=== PATIENT | female | born 1985 | race Caucasian/White ===

== ENCOUNTER 2021-08-10 12:40 | Emergency (ER) | payer OTHER, SELFPAY ==
--- NOTE | ~2021-08-10 | CT_ITS ---
EXAMINATION: CT ABDOMEN AND PELVIS WITH CONTRAST CLINICAL INFORMATION: Chronic nausea, poor appetite, vomiting, weight loss COMPARISON: 07/29/2021 TECHNIQUE: Multidetector volumetric images were obtained from the superior aspect of the liver through the pubic symphysis following administration 85 mL of Omnipaque 350 intravenous contrast. Sagittal and coronal reformatted images were obtained on the technologist's workstation. Oral contrast: No This CT examination was performed using dose optimization techniques as appropriate, variously including the following: *Automated exposure control *Adjustment of mA and/or kV according to patient size (this includes techniques or standardized protocols for targeted exams where dose is matched to indication/reason for exam; i.e. extremities or head) *Use of iterative reconstruction technique DLP: 445 mGy-cm FINDINGS: Suboptimal assessment in some regions due to motion artifact. LUNG BASES: The visualized lung bases are unremarkable. LIVER, GALLBLADDER, AND BILIARY TREE: The liver is normal in size, shape, and attenuation. No focal hepatic lesion or biliary ductal dilatation is present. The gallbladder appears contracted and is not well evaluated. PANCREAS: Unremarkable. SPLEEN: Unremarkable. ADRENAL GLANDS: Unremarkable. KIDNEYS AND URETERS: Bilateral nephrograms are symmetric. No hydronephrosis or obstructing calculus identified. BLADDER: Unremarkable. GASTROINTESTINAL TRACT: Curvilinear soft tissue density in the left perianal region suggests sequelae of perianal fistula; this appears slightly decreased in prominence since 07/29/2021. No evidence of bowel obstruction. No significant bowel wall thickening is seen. The appendix is unremarkable. Small amount of fluid noted in the right lower quadrant. No free air identified. ABDOMINAL WALL: No significant hernia is appreciated. LYMPH NODES: Normal. VASCULAR: Unremarkable. PELVIC VISCERA: Unremarkable. Trace pelvic free fluid is noted, decreased from prior. OSSEOUS STRUCTURES: Unremarkable. CT/CT abdomen pelvis w con IMPRESSION: Interval decrease in pelvic free fluid compared to 07/29/2021. Small amount of free fluid is also noted in the right lower quadrant, of uncertain etiology. Curvilinear soft tissue density in the left perianal region suggests sequelae of fistula; slightly less prominent than on 07/29/2021. Fleischner guidelines were followed.
[2021-08-10 15:47] VITALS: BP 93/54; PULSE 75; RESP 18; TEMP 36.2; O2SAT 99; BMI 24.4
[2021-08-10 16:17] LABS: Appearance Urine CLEAR; Color Urine YELLOW; Glucose Urine UA NEG (NEG); Leukocyte Esterase Urine NEG (NEG); Nitrite Urine NEG (NEG); Specific Gravity - Urine <= 1.005 (1.005-1.025); Urine Blood NEG (NEG); Urine Ketones NEG (NEG); Urine Protein NEG (NEG-TRACE)
[2021-08-10 16:21] LABS: UPreg QC Valid YES; Urine Pregnancy NEGATIVE (NEGATIVE)
[2021-08-10 21:51] VITALS: BP 93/54; PULSE 75; RESP 18; TEMP 36.2; O2SAT 99
[2021-08-10 22:09] LABS: MANUAL DIFF FLAG NO
[2021-08-10 22:10] LABS: Basophils Percent Auto 0.1 % (0-2); Eosinophils Percent Auto 0.4 % (0-4); Hematocrit 39.3 % (37.0-47.0); Hemoglobin 13.2 g/dl (12.0-16.0); Imm Gran Abs Auto 0.01 X10*3/uL (0.00-0.03); Imm Gran Pct Auto 0.1 % (0.0-0.4); Lymphocytes Absolute Auto 3.2 X10*3/uL (1.2-4.9); Lymphocytes Percent Auto 40.8 % (20-40); Mean Corpuscular HGB Conc 33.6 g/dl (31.0-35.0); Mean Corpuscular Hemoglobin 31.7 pg (27.0-33.0); Mean Corpuscular Volume 94.5 fL (80.0-98.0); Mean Platelet Volume 10.8 fL (9.4-12.3); Monocytes Absolute Auto 0.5 X10*3/uL (0.1-1.2); Monocytes Percent Auto 6.5 % (2-11); Neutrophils Percent Auto 52.1 % (45-73); Platelet Count 212 X10*3/uL (160-400); Red Blood Count 4.16 X10*6/uL (4.20-5.50); Red Cell Distribution Width 12.3 % (11.0-16.0); White Blood Count 7.7 X10*3/uL (4.8-10.8)
[2021-08-10 22:26] LABS: COVID-19 Test Negative (Negative); IDNOW Serial# 9DD0AD1C
[2021-08-10 22:29] LABS: Alanine Aminotransferase 12 U/L (0-31); Albumin Level 4.3 g/dL (3.5-5.0); Alkaline Phosphatase 47 U/L (39-117); Anion Gap 9 (12-20); Aspartate Amino Transferase 14 U/L (5-31); Bilirubin Direct < 0.2 mg/dL (0.0-0.5); Bilirubin Total 0.4 mg/dL (0.0-1.0); Blood Urea Nitrogen 10 mg/dL (9-16); Calcium 9.4 mg/dL (8.4-10.2); Carbon Dioxide 28 mmol/L (22-29); Chloride 107 mmol/L (96-108); Creatinine Clr Calc Pharmacy 73.6; Estimated Glomerular Filt Rate > 60; Glucose Random 106 mg/dL (60-115); Lipase 71 U/L (8-78); Sodium 140 mmol/L (135-145); Total Protein 7.3 g/dL (6.5-8.0)
--- NOTE | 2021-08-10 22:57 | ED.GENADULT ---
HPI - General Adult General Chief complaint: Nausea/Vomiting/Diarrhea Stated complaint: vomiting 5 days Time Seen by Provider: 08/10/21 22:51 Source: patient Limitations: no limitations and language barrier ([facility] [employer] web services used) History of Present Illness HPI narrative: This is a 36-year-old female who complains of poor appetite and vomiting for weeks. The patient did see a physician in [place] who had done a test which sounds like an H pylori evaluation that was positive. The patient was treated for ?bacteria in her abdomen?, and was put on a combination medicine containing bismuth, tetracycline, and metronidazole. The patient was put on a 10 day course of this. She states that she has not improved but continues to have poor appetite, belching, nausea, vomiting. She has been drinking water and Ensure but has been losing weight. She denies any fever. She has pain primarily associated with vomiting. She denies any cough or shortness of breath. She denies any urinary symptoms. She denies any constipation. She notes she did have a procedure to her colon About a year ago, had been constipated before that but is not constipated since then. She denies marijuana use. She denies being . Related Data Previous Rx's Medication Instructions Recorded prochlorperazine 25 mg rectal 25 mg MT BID PRN #12 ea 08/11/21 suppository (Compazine) Allergies Allergy/AdvReac Type Severity Reaction Status Date / Time No Known Allergies Allergy Verified 08/10/21 15:44 Review of Systems Review of Systems: Yes all other systems are reviewed and are negative Constitutional: Constitutional: Reports as per HPI, Denies fever(s), Reports poor appetite and Reports weakness Eyes: Eyes: Reports as per HPI and Reports no additional eye complaints ENT: Reports system reviewed and no additional complaints, except as documented, Reports as per HPI, Denies nasal congestion, Denies nasal discharge and Denies sore throat Cardiovascular: Cardiovascular: Reports as per HPI, Denies chest pain and Denies dyspnea Respiratory: Respiratory: Reports as per HPI, Denies cough and Denies dyspnea Gastrointestinal: Gastrointestinal: Reports as per HPI, Reports abdominal pain, Reports belching, Denies bloating, Denies change in bowel habits, Denies diarrhea, Reports nausea and Reports vomiting Genitourinary: Genitourinary: Reports as per HPI, Denies hematuria, Denies urinary frequency and Denies dysuria Musculoskeletal: Musculoskeletal: Reports no additional musculoskeletal complaints and Denies numbness Integumentary/Breasts: Skin/Breast: Reports as per HPI and Denies rash Neurologic: Reports as per HPI, Denies focal weakness, Denies numbness, Denies Sensory deficit (Neuro) and Reports weakness Psychiatric: Psychiatric: Reports no additional psychiatric complaints and Reports as per HPI Endocrine: Endocrine: Reports no additional endocrine complaints and Reports as per HPI Hematologic/Lymphatic: Hematologic/Lymphatic: Reports no additional hematologic/lymphatic complaints, Reports as per HPI and Reports other (No peripheral edema) [facility] Past Medical History Medical History (Updated 08/11/21 @ 02:02 by Santiago Del Valle MD) No known health problems Social History Social History Alcohol intake: never Patient Tobacco Use Status: Never used Tobacco Use of substances other than those prescribed or required for medical reasons: No Advance Directives: No Advance Directives Information Provided: No Patient : No Physical Exam Vital Signs: Vital Signs: Last Vital Signs Temp 97.2 F 08/10/21 21:51 Pulse 78 08/11/21 00:12 Resp 16 08/11/21 00:12 BP 101/56 L 08/11/21 00:12 Pulse Ox 98 08/11/21 00:12 BMI result Body Mass Index 24.4 Const: General: cooperative, no acute distress and alert Orientation/consciousness: patient oriented x3 HENMT: Head: Yes normal to inspection Eyes: General: appearance normal, both eyes and all related structures Eyelids: Yes eyelids normal Conjunctivae: conjunctivae normal Pupils: Equal, round and reactive pupils present Neck: Neck: Yes normal visual inspection and Yes supple Chest: Chest palpation & inspection: normal inspection of the chest Resp: Effort & Inspection: normal respiratory effort Auscultation: clear to auscultation bilaterally Cardio: Rate: regular rate Rhythm: regular rhythm Heart sounds: S1 normal heart sound present, S2 normal heart sound present, no gallops, no murmurs and no rubs GI: Inspection: Yes normal to inspection and Yes other (S significant distension.) Palpation (GI): Soft to palpation, nontender and Other GI palpation findings present (Non-distended) Auscultation: abnormal bowel sounds (Mildly hyperactive) Skin: General skin exam: no rashes or lesions noted Neuro: General: patient oriented x3, no focal motor deficits and CN's II-XI intact bilaterally Cranial nerves: Yes Equal, round and reactive pupils present Cognition (Neuro): normal cognition Motor exam (neuro): 5/5 motor strength present throughout Sensory Exam: No Sensory deficit (Neuro) Extrem: General: Yes normal to inspection and Yes no pedal edema Psych: Appearance: grossly normal Affect: normal affect Medical Decision Making MDM Narrative Medical decision making narrative: Patient with a complaint of GI symptoms including poor appetite and vomiting. Patient did not appear ill on exam. Vital signs normal. Labs unremarkable. Patient was hydrated with normal saline and given Zofran IV. Patient is safe for outpatient follow-up. Lab Data Result diagrams: 08/10/21 22:04 08/10/21 22:04 Labs: Lab Results 08/10/21 08/10/21 08/10/21 Range/Units 16:00 16:00 22:04 WBC 7.7 (4.8-10.8) X10*3/uL RBC 4.16 L (4.20-5.50) X10*6/uL Hgb 13.2 (12.0-16.0) g/dl Hct 39.3 (37.0-47.0) % MCV 94.5 (80.0-98.0) fL MCH 31.7 (27.0-33.0) pg MCHC 33.6 (31.0-35.0) g/dl RDW 12.3 (11.0-16.0) % Plt Count 212 (160-400) X10*3/uL MPV 10.8 (9.4-12.3) fL Immature Gran % (Auto) 0.1 (0.0-0.4) % Neut % (Auto) 52.1 (45-73) % Lymph % (Auto) 40.8 H (20-40) % Sheridan % (Auto) 6.5 (2-11) % Eos % (Auto) 0.4 (0-4) % Baso % (Auto) 0.1 (0-2) % Lymph # (Auto) 3.2 (1.2-4.9) X10*3/uL Sheridan # (Auto) 0.5 (0.1-1.2) X10*3/uL Eos # (Auto) 0.0 (0.0-0.4) X10*3/uL Baso # (Auto) 0.0 (0.0-0.2) X10*3/uL Abs Immat Gran (auto) 0.01 (0.00-0.03) X10*3/uL Absolute Neuts (auto) 4.0 (2.0-8.3) x10*3/uL Absolute Nucleated RBC 0.000 (0.0-0.012) X10*3/uL Nucleated RBC % (auto) 0.0 (0.0-0.2) /100WBC Sodium (135-145) mmol/L Potassium (3.3-5.1) mmol/L Chloride (96-108) mmol/L Carbon Dioxide (22-29) mmol/L Anion Gap (12-20) BUN (9-16) mg/dL Creatinine (0.5-1.4) mg/dL Estim Creat Clear Calc Estimated GFR Random Glucose (60-115) mg/dL Calcium (8.4-10.2) mg/dL Total Bilirubin (0.0-1.0) mg/dL Direct Bilirubin (0.0-0.5) mg/dL AST (5-31) U/L ALT (0-31) U/L Alkaline Phosphatase (39-117) U/L Total Protein (6.5-8.0) g/dL Albumin (3.5-5.0) g/dL Lipase (8-78) U/L Urine Color YELLOW Urine Appearance CLEAR Urine pH 7.0 (5.0-8.0) Ur Specific [place] <= 1.005 (1.005-1.025) Urine Protein NEG (NEG-TRACE) MG/DL Urine Glucose (UA) NEG (NEG) MG/DL Urine Ketones NEG (NEG) MG/DL Urine Blood NEG (NEG) Urine Nitrite NEG (NEG) Ur Leukocyte Esterase NEG (NEG) Urine Test NEGATIVE (NEGATIVE) COVID-19 (ADDISON) (Negative) COVID-19 Clin Com 08/10/21 08/10/21 Range/Units 22:04 22:04 WBC (4.8-10.8) X10*3/uL RBC (4.20-5.50) X10*6/uL Hgb (12.0-16.0) g/dl Hct (37.0-47.0) % MCV (80.0-98.0) fL MCH (27.0-33.0) pg MCHC (31.0-35.0) g/dl RDW (11.0-16.0) % Plt Count (160-400) X10*3/uL MPV (9.4-12.3) fL Immature Gran % (Auto) (0.0-0.4) % Neut % (Auto) (45-73) % Lymph % (Auto) (20-40) % Sheridan % (Auto) (2-11) % Eos % (Auto) (0-4) % Baso % (Auto) (0-2) % Lymph # (Auto) (1.2-4.9) X10*3/uL [place] # (Auto) (0.1-1.2) X10*3/uL Eos # (Auto) (0.0-0.4) X10*3/uL Baso # (Auto) (0.0-0.2) X10*3/uL Abs Immat Gran (auto) (0.00-0.03) X10*3/uL Absolute Neuts (auto) (2.0-8.3) x10*3/uL Absolute Nucleated RBC (0.0-0.012) X10*3/uL Nucleated RBC % (auto) (0.0-0.2) /100WBC Sodium 140 (135-145) mmol/L Potassium 4.0 (3.3-5.1) mmol/L Chloride 107 (96-108) mmol/L Carbon Dioxide 28 (22-29) mmol/L Anion Gap 9 L (12-20) BUN 10 (9-16) mg/dL Creatinine 0.89 (0.5-1.4) mg/dL Estim Creat Clear Calc 73.6 Estimated GFR > 60 Random Glucose 106 (60-115) mg/dL Calcium 9.4 (8.4-10.2) mg/dL Total Bilirubin 0.4 (0.0-1.0) mg/dL Direct Bilirubin < 0.2 (0.0-0.5) mg/dL AST 14 (5-31) U/L ALT 12 (0-31) U/L Alkaline Phosphatase 47 (39-117) U/L Total Protein 7.3 (6.5-8.0) g/dL Albumin 4.3 (3.5-5.0) g/dL Lipase 71 (8-78) U/L Urine Color Urine Appearance Urine pH (5.0-8.0) Ur Specific [place] (1.005-1.025) Urine Protein (NEG-TRACE) MG/DL Urine Glucose (UA) (NEG) MG/DL Urine Ketones (NEG) MG/DL Urine Blood (NEG) Urine Nitrite (NEG) Ur Leukocyte Esterase (NEG) Urine Test (NEGATIVE) COVID-19 (ADDISON) Negative (Negative) COVID-19 Clin Com See Note Imaging Data CT scan - abdomen: Radiologist's impression: MPRESSION: Interval decrease in pelvic free fluid compared to 07/29/2021. Small amount of free fluid is also noted in the right lower quadrant, of uncertain etiology. Curvilinear soft tissue density in the left perianal region suggests sequelae of fistula; slightly less prominent than on 07/29/2021. Discharge Plan Discharge Clinical Impression: Vomiting Patient Disposition: Home, Self-Care Instructions: Acute Nausea and Vomiting (ED) Additional Instructions: Follow-up the primary care physician. Continue drinking plenty of fluids. Continue current medications. Use Compazine suppositories as needed for nausea if your othermedicines are not working. Prescriptions: New prochlorperazine [Compazine] 25 mg suppository 25 mg MT BID PRN (Reason: nausea and vomiting) Qty: 12 RF: 0 Interventions: ED Discharge Assessment Last Done: 08/11/21 02:47 Discharge Date/Time: 08/11/21 03:03
[2021-08-10] MEDS: LORazepam 2 MG/ML VIAL 0.5 MG IVPUSH (23:05)
[2021-08-10] MEDS: 0.9 % Sodium Chloride 1,000 ML 999 ML IV (23:05)
[2021-08-10] MEDS: Metoclopramide HCl 10 MG/2 ML VIAL IVPUSH (23:05)
[2021-08-11 00:12] VITALS: BP 101/56; PULSE 78; RESP 16; O2SAT 98
[2021-08-11] MEDS: iohexoL 350 MG/ML 100 ML INFUS..BTL 85 ML IV (00:37)
== END 2021-08-11 03:03 | disposition home or self-care (01) ==
PROVIDERS: Emergency Provider Emergency Medicine
DX: R11.2 Nausea with vomiting, unspecified (principal); Z20.822 Contact with and (suspected) exposure to COVID-19
CPT/HCPCS: 36415; 74177; 80048; 80076; 81003; 81025; 83690; 85025; 87635; 96361; 96374; 96375; 99284; J2060; J2765; Q9967

== ENCOUNTER → 2021-09-19 15:03 | Outpatient (BNVA) | payer OTHER, SELFPAY | PROVIDERS: Visit Provider Nurse Practitioner Family | DX: R53.83 Other fatigue (principal); R20.2 Paresthesia of skin; R53.1 Weakness; R11.0 Nausea | CPT/HCPCS: 99212 ==

== ENCOUNTER 2021-11-24 08:17 | Outpatient (REF) | payer OTHER, SELFPAY ==
--- NOTE | 2021-11-24 08:21 | EMG_ITS ---
Bilateral tibial and peroneal motor studies were performed. Bilateral sural, superficial peroneal, median, and lateral plantar studies were performed. Tibial H-reflexes were obtained and paraspinal muscles were tested with a needle. IMPRESSION: 1. 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 2. No evidence of generalized neuropathy or radiculopathy. MD SALLY Collins/KIKIL / [id number]
== END 2021-11-24 08:18 | disposition home or self-care (01) ==
LOC: HO.NEURO 08:17
PROVIDERS: Visit Provider Nurse Practitioner Family
DX: R20.2 Paresthesia of skin (principal); R53.1 Weakness
CPT/HCPCS: 95886; 95913

== ENCOUNTER → 2021-12-08 15:31 | Outpatient (BNVA) | payer OTHER, SELFPAY | PROVIDERS: PCP Nurse Practitioner Family; Visit Provider Nurse Practitioner Family | DX: G47.19 Other hypersomnia (principal); G57.53 Tarsal tunnel syndrome, bilateral lower limbs; R06.83 Snoring; R53.1 Weakness; R20.2 Paresthesia of skin; R42 Dizziness and giddiness | CPT/HCPCS: 99212 ==

== ENCOUNTER → 2022-01-16 16:04 | Outpatient (REF) | payer OTHER, SELFPAY | LOC: HO.SL 16:04 | PROVIDERS: Visit Provider Nurse Practitioner Family | DX: G47.19 Other hypersomnia (principal); G47.9 Sleep disorder, unspecified; R06.83 Snoring; G47.10 Hypersomnia, unspecified | CPT/HCPCS: 95806 ==

== ENCOUNTER → 2022-03-06 09:12 | Outpatient (BNVA) | payer OTHER, SELFPAY | PROVIDERS: PCP Nurse Practitioner Family; Visit Provider Nurse Practitioner Family | DX: R56.9 Unspecified convulsions (principal); D18.02 Hemangioma of intracranial structures; R42 Dizziness and giddiness; G57.53 Tarsal tunnel syndrome, bilateral lower limbs; R20.2 Paresthesia of skin | CPT/HCPCS: 99212 ==

== ENCOUNTER → 2022-03-14 09:17 | Outpatient (BNVA) | payer OTHER, SELFPAY | PROVIDERS: PCP Nurse Practitioner Family; Visit Provider Internal Medicine Rheumatology | DX: M25.511 Pain in right shoulder (principal); R20.2 Paresthesia of skin; G57.53 Tarsal tunnel syndrome, bilateral lower limbs; R56.9 Unspecified convulsions; D18.02 Hemangioma of intracranial structures | CPT/HCPCS: 99202 ==

== ENCOUNTER → 2022-05-05 10:35 | Outpatient (BNVA) | payer OTHER, SELFPAY | PROVIDERS: PCP Nurse Practitioner Family; Visit Provider Nurse Practitioner Family | DX: R42 Dizziness and giddiness (principal); G47.19 Other hypersomnia; R06.83 Snoring; R56.9 Unspecified convulsions; R20.2 Paresthesia of skin; G57.53 Tarsal tunnel syndrome, bilateral lower limbs; D18.02 Hemangioma of intracranial structures | CPT/HCPCS: 99212 ==

== ENCOUNTER 2022-06-21 14:48 | Outpatient (REF) | payer OTHER, SELFPAY ==
--- NOTE | 2022-06-21 10:30 | EMG_ITS ---
Please see scanned EMG / Nerve Conduction Report. MTDD
== END 2022-06-21 14:49 | disposition home or self-care (01) ==
LOC: HO.NEURO 14:48
PROVIDERS: Visit Provider Internal Medicine Rheumatology
DX: R20.2 Paresthesia of skin (principal)
CPT/HCPCS: 95885; 95913

== ENCOUNTER 2022-07-20 22:59 | Emergency (ER) | payer OTHER, SELFPAY ==
--- NOTE | ~2022-07-20 | CT_ITS ---
EXAMINATION: CT HEAD WITH/WITHOUT CONTRAST CLINICAL INFORMATION: Double vision and headache. Evaluate for optic nerve compression. COMPARISON: Brain MRI 05/14/2021. TECHNIQUE: Contiguous axial imaging was performed from the skull base to vertex before and after the administration of 100 mL of Omnipaque [address] examination was performed using dose optimization techniques as appropriate, variously including the following: *Automated exposure control *Adjustment of mA and/or kV according to patient size (this includes techniques or standardized protocols for targeted exams where dose is matched to indication/reason for exam; i.e. extremities or head) *Use of iterative reconstruction technique DLP: 1301 mGy-cm FINDINGS: There is a small focus of hyperattenuation within the cerebellar vermis to the left of midline which coincides with the presence of a known cavernous malformation better depicted on MR imaging of the brain from 05/14/2021. Otherwise no abnormal intracranial mass or enhancement. No acute hemorrhage or abnormal extra-axial collection. No intracranial mass effect or midline shift. Lateral and third ventricles are normal. No hydrocephalus. Cooley-white matter differentiation is grossly preserved and there is no evidence of acute territorial infarct. The calvarium and skull base are intact. Mastoid air cells and middle ear cavities are well aerated. CT/CT head/brain wo/w IV con IMPRESSION: No acute finding to provide an explanation for this patient's clinical symptoms of double vision and headaches. Again there is a cavernous malformation located within the cerebellar vermis. Otherwise no abnormal intracranial mass or enhancement. No evidence of acute territorial infarct or hemorrhage.
--- NOTE | ~2022-07-20 | XR_ITS ---
EXAMINATION: XR CHEST CLINICAL INFORMATION: Weakness, dizziness, shortness of breath. COMPARISON: None TECHNIQUE: 2 views of the chest were obtained. FINDINGS: No significant abnormality is noted involving the heart, lungs, mediastinum, bony thorax or soft tissues. XR/XR chest 2V IMPRESSION: No acute cardiopulmonary process.
--- NOTE | ~2022-07-20 | US_ITS ---
EXAMINATION: US VENOUS ULTRASOUND WITH DOPPLER LOWER EXTREMITY, BILATERAL CLINICAL INFORMATION: Bilateral lower extremity pain and swelling. COMPARISON: None TECHNIQUE: Ultrasound of the deep veins is performed from the hip to the calf with compression sonography and color and pulse Doppler assessment. Spectral analysis with color-flow imaging is performed. FINDINGS: RIGHT: There is normal venous compression and respiratory variation and augmented flow. The visualized common femoral vein, superficial femoral vein, profunda femoral vein, popliteal vein, and the trifurcation region shows no evidence of deep venous thrombosis. No right popliteal cyst. The subcutaneous soft tissues are unremarkable. LEFT: There is normal venous compression and respiratory variation and augmented flow. The visualized common femoral vein, superficial femoral vein, profunda femoral vein, popliteal vein, and the trifurcation region shows no evidence of deep venous thrombosis. No left popliteal cyst. The subcutaneous soft tissues are unremarkable. US/US venous duplex LE BI IMPRESSION: No evidence for deep venous thrombosis in the visualized veins of the bilateral lower extremities.
[2022-07-20 23:03] VITALS: BP 118/70; PULSE 96; RESP 18; TEMP 36.6; O2SAT 98; BMI 28.3
[2022-07-21 03:55] VITALS: BP 103/72; PULSE 73; RESP 18; TEMP 37; O2SAT 98
--- NOTE | 2022-07-21 04:01 | PC.NURSE ---
Pt's V/S are stable, pt reports vomiting, dizziness and vision loss today. Pt reports experiencing bilaterally lower extremities numbness x 2 days. Pt also has headache (occipital) 10/10, and nothing relief the pain. Pt denies hx of vertigo or migraines. Pt has hx of seizures, her last seizure was 2 days ago. Pt has bilaterally strength on upper/lower extremities, TAMI pupils, a/o x5, no apparent of distress. will continue to monitor.
--- NOTE | 2022-07-21 07:11 | ED_ITS ---
HPI - General Adult General Chief complaint: General Medical Stated complaint: Headache, Body aches Time Seen by Provider: 07/21/22 07:11 Source: patient Mode of arrival: ambulatory Limitations: language barrier (Mohawk speaking only, staff interpreter used) History of Present Illness HPI narrative: 37-year-old female who presents emergency department for evaluation of a headache, dizziness, fatigue, double vision, numbness in both legs, swelling in both legs time 3 days. The patient has a known cavernous hemangioma of the cerebellum and a seizure disorder. She states that over the last 3 days she has had constant dizziness which she describes as a room spinning sensation. This is not worse with position change but she states that does get worse when she walks around. She states she has had similar dizziness in the past but never to this extent. She states that over the past 2-3 days she has also had a constant headache. She points to her right parietal area into her frontal area when asked to localize the pain. She describes the pain as a pressure twisting like sensation which is 10/10. Patient had associated nausea with no vomiting. She also states that over the past days she has had constant, side by side, double vision. She has also noticed numbness of her lower extremities with swelling in her popliteal fossa areas bilaterally. She denied fever, chills, sore throat, chest pain, shortness of breath or dyspnea on exertion. She states she gets occasional chest pain but cannot describe the character of the pain. She states the pain is located throughout her entire chest. The patient has had similar symptoms the past and has been seen by Neurology. Neurology note from 05/05/2022 was reviewed. Patient was seen for facial swelling, dizziness, fatigue,, bilateral leg and arm pain. The patient was thought to have an allergic reaction to Keppra was tapered off fat started on Trileptal, she was also treated with prednisone. She was diagnosed with tarsal tunnel syndrome bilateral of the lower extremities causing her paresthesias and pain, dizziness secondary to 9 mm cerebellar hemangioma. The patient has also had double vision in the past. Related Data Home Medications Medication Instructions Recorded Confirmed albuterol sulfate 90 mcg/actuation 1 inh inhalation QID 08/19/21 03/14/22 aerosol inhaler cholecalciferol (vitamin D3) 25 25 mcg PO DAILY 08/19/21 03/14/22 mcg (1,000 unit) capsule ferrous sulfate 325 mg (65 mg 325 mg PO DAILY 08/19/21 03/06/22 iron) tablet ibuprofen 800 mg tablet 800 mg PO Q8H 08/19/21 03/14/22 ondansetron HCl 4 mg tablet 4 mg PO Q8H 08/19/21 03/14/22 fluticasone propionate 50 1 spray intranasal DAILY 02/10/22 03/14/22 mcg/actuation nasal spray,suspension meclizine 25 mg tablet 25 mg PO TID 02/10/22 03/14/22 mirtazapine 15 mg tablet 15 mg PO BEDTIME 02/10/22 03/14/22 multivitamin 1 tab PO DAILY 02/10/22 03/14/22 albsrponqubn-coblvyer-alfg 1 tab PO DAILY 02/10/22 03/14/22 fumarate 7.5 mg-folic acid 400 mcg tablet pantoprazole 20 mg tablet,delayed 20 mg PO BID 02/10/22 03/06/22 release zolpidem 5 mg tablet 5 mg PO BEDTIME PRN insomnia 02/10/22 03/14/22 Previous Rx's Medication Instructions Recorded gabapentin 100 mg capsule See Rx Instructions PO .COMPLEX 30 03/06/22 days #150 caps clonazepam 0.5 mg tablet 0.25 - 0.5 mg PO BEDTIME PRN sleep 04/07/22 30 days #30 tabs diphenhydramine HCl 25 mg tablet 25 mg PO TID PRN allergy symptoms 04/21/22 (Benadryl Allergy) 7 days #21 tabs omeprazole 20 mg capsule,delayed 20 mg PO BID 30 days #60 caps 04/24/22 release prednisone 10 mg tablet See Rx Instructions PO DAILY 18 04/24/22 days #63 tabs amitriptyline 25 mg tablet 50 mg PO BEDTIME 30 days #60 tabs 05/05/22 oxcarbazepine 300 mg tablet See Rx Instructions PO BID 30 days 05/26/22 #120 tabs Allergies Allergy/AdvReac Type Severity Reaction Status Date / Time No Known Allergies Allergy Verified 07/20/22 23:07 Review of Systems Review of Systems: Yes all other systems are reviewed and are negative [facility] Past Medical History [facility] Narrative: Past medical history: Hypotension, seizure disorder, cavernous hemangioma of the cerebellum diagnosed 1 year prior, vertigo, weakness, paresthesias. Past surgical history: None. Social history: Denies tobacco, alcohol and drug use Medical History No known health problems Social History Social History Alcohol intake: never Patient Tobacco Use Status: Never used Tobacco Smoked in Last 30 Days: No Use of substances other than those prescribed or required for medical reasons: No Advance Directives: No Advance Directives Information Provided: Yes Patient : No Physical Exam ED Vital Signs: Vital Signs - 24 hr 07/20/22 23:03 07/21/22 03:55 07/21/22 08:06 Temperature 97.9 F 98.6 F Pulse Rate 96 73 69 Respiratory Rate 18 18 189 H Blood Pressure 118/70 103/72 124/81 Pulse Oximetry 98 98 98 Oxygen Delivery Method Room Air Room Air 07/21/22 12:38 Temperature Pulse Rate 68 Respiratory Rate 18 Blood Pressure 97/57 L Pulse Oximetry 98 Oxygen Delivery Method BMI result Body Mass Index 28.3 Const Other: Awake, alert, female patient, very pleasant and cooperative, does not appear to be in distress, answers all questions appropriately HENMT Head: Yes normal to inspection, Yes normocephalic and Yes atraumatic Ears: external ears normal General nose exam: Normal external nose present Face and sinus: Yes normal facial exam Mouth: Normal oral and palatal mucosa present Throat: Yes posterior oropharynx normal Eyes General: appearance normal, both eyes and all related structures Neck Neck: Yes normal visual inspection, Yes no lymphadenopathy, Yes trachea midline and Yes supple Chest Chest palpation & inspection: normal inspection of the chest and normal palpation of entire chest wall Resp Effort & Inspection: normal respiratory effort and able to speak in complete sentences Auscultation: clear to auscultation bilaterally Cardio Rate: regular rate Rhythm: regular rhythm Heart sounds: S1 normal heart sound present, S2 normal heart sound present and no murmurs GI Inspection: Yes normal to inspection Palpation (GI): Soft to palpation, nontender and no guarding Auscultation: normal bowel sounds General: Yes no CVA tenderness Back/Spine/Pelvis Back: no CVA tenderness Skin General skin exam: no rashes or lesions noted Neuro Other: Patient is awake, alert, oriented to person and place, answers all questions appropriately. Cranial nerve exam: The patient's left eye seems to lag behind the right eye with testing of the extra ocular muscles. Patient states she does see double with both eyes open and also sees double with 1 eye covered. Cranial nerves otherwise intact. Strength is symmetric bilaterally. The patient had difficulty with qzunnh-bd-sxut-to-finger secondary to double vision but also seemed to have difficulty with rapid finger movement. Patient had normal heel to ahmadi. Extrem General: Yes normal to inspection Psych Appearance: grossly normal Speech and movement: Normal speech and movement present Affect: normal affect Attitude: cooperative Thought process: Normal thought process present Thought content: Normal thought content present Course Course Course Narrative: 37-year-old female who presents emergency department for evaluation right-sided headache, and constant dizziness x3 days with persistent double vision x1 day. Patient also is complaining of swelling of her lower extremities, pain and numbness of both her lower and upper extremities. The patient does have a known 9 mm cavernous hemangioma in the cerebellum. She has also been evaluated by her neurologist for her upper and lower extremity pain, double vision, and dizziness. She is being treated for seizures. Vital signs were unremarkable. Patient's physical examination did reveal a slightly of movement of the left eye compared to the right with testing of extraocular muscles. The double vision however persist despite covering 1 eye and she has monocular double vision with side to side images. Patient had poor gxfgmh-gz-fhin-to-finger poor wrapped with movement of her fingers but good heel to ahmadi on her cerebellar exam. At this time I do not have a clear etiology for her symptoms. I did discuss imaging with radiologist, Dr. Valentine. He recommended a CT head with and without got with thin coronal psychosis to evaluate the patient optic chiasm for possible mass. I did order laboratory evaluation as well, chest x-ray, bilateral lower extremity duplex ultrasounds. Patient's headache was treated with Tylenol 975 mg orally and Reglan 10 mg IV with Benadryl 50 mg IV. 1142: Laboratory evaluation: CBC was normal with a WBC of 9100, 39 neutrophils and elevated lymphocytes 51 which I do not think is significant. Comprehensive metabolic panel was normal. ESR and CRP were normal. CPK was normal. COVID-19 and influenza were negative. TSH is elevated at 6.42 with reflex T4 pending-the patient has hypothyroidism. Quantitative beta hCG was negative. Radiology evaluation: Chest x-ray was negative. CT scan of the brain did not reveal a clear cause for the patient's symptoms Patient got no relief for headache with the above treatment and she still has double vision. Possible the patient may be having a complex migraine. I ordered morphine 4 mg IV and Zofran 4 mg IV to see if we can improve her headache to see if the symptoms change. 1526: Patient refused the morphine but did accept Toradol 30 mg IV for her headache this did not give her any relief. At this point, I still think that the patient has a complex migraine. She states she has migraine medications at home that she will take. I told her that she call her neurologist for follow-up return if her symptoms get worse. Medications Administered Discontinued Medications Generic Name Dose Route Start Last Admin Trade Name Corey PRN Reason Stop Dose Admin Acetaminophen 975 mg 07/21/22 07:47 07/21/22 08:02 Acetaminophen 325 Mg Tablet PO 07/21/22 07:48 975 mg ONCE STA Administration Diphenhydramine HCl 50 mg 07/21/22 07:47 07/21/22 08:02 Diphenhydramine Hcl 50 Mg/Ml Vial IVPUSH 07/21/22 07:48 50 mg ONCE STA Administration Sodium Chloride 1,000 mls @ 999 mls/hr 07/21/22 07:47 07/21/22 08:03 Ns IV 07/21/22 08:47 999 mls/hr .Q1H1M STA Administration Iohexol 85 ml 07/21/22 09:22 07/21/22 09:22 Iohexol 350 Mg/Ml 100 Ml Infus..Btl IV 07/21/22 09:23 85 ml ONCE ONE Administration Ketorolac Tromethamine 30 mg 07/21/22 12:27 07/21/22 12:35 Ketorolac Tromethamine 30 Mg/Ml Vial IVPUSH 07/21/22 12:28 30 mg ONCE ONE Administration Metoclopramide HCl 10 mg 07/21/22 07:47 07/21/22 08:02 Metoclopramide Hcl 10 Mg/2 Ml Vial IVPUSH 07/21/22 07:48 10 mg ONCE STA Administration Ondansetron HCl 4 mg 07/21/22 11:41 07/21/22 12:35 Ondansetron Hcl 4 Mg/2 Ml Vial IVPUSH 07/21/22 11:42 4 mg ONCE ONE Administration Discharge Plan Discharge Clinical Impression: Headache, Diplopia, Dizziness Patient Disposition: Home, Self-Care Instructions: Diplopia (ED), Acute Headache (ED) Additional Instructions: Your blood work was normal. Your inflammatory markers (ESR and CRP) were normal. The CT scan of your head with and without contact with thin coronal slice through the optic chaism did not reveal any obvious masses that would explain your double vision. Your double vision on a does not go away when I cover 1 eye or the other which makes me believe that your double vision is caused by your headache and this may be a bad migraine headache (complex migraine) When you get home take your migraine medications. Call your neurologist for follow-up within 2-3 days. . Please return to the emergency department if your symptoms get worse or if you develop any symptoms that are concerning to you. Prescriptions: No Action clonazepam 0.5 mg tablet 0.25 - 0.5 mg PO BEDTIME PRN (Reason: sleep) 30 Days Qty: 30 0RF Rx Instructions: administer 30 minutes before bedtime (do not take with Ambien or Lorazepam) diphenhydramine HCl [Benadryl Allergy] 25 mg tablet 25 mg PO TID PRN (Reason: allergy symptoms) 7 Days Qty: 21 0RF prednisone 10 mg tablet See Rx Instructions PO DAILY 18 Days Qty: 63 0RF Rx Instructions: 6 tabs x's 3 days, 5 tabs x's 3 days, 4 tabs x's 3 days, 3 tabs x's 3 days, 2 tabs x's 3 days, 1 tab x's 3 days, then stop orally daily; omeprazole 20 mg capsule,delayed release(DR/EC) 20 mg PO BID 30 Days Qty: 60 1RF oxcarbazepine 300 mg tablet See Rx Instructions PO BID 30 Days Qty: 120 3RF Rx Instructions: 1 tab bid x's 1 week, then 2 tabs bid orally 2 times a day; gabapentin 100 mg capsule See Rx Instructions PO .COMPLEX 30 Days Qty: 150 3RF Rx Instructions: 100 mg b.i.d. and 300 mg q.h.s. orally; zolpidem 5 mg tablet 5 mg PO BEDTIME PRN (Reason: insomnia) pantoprazole 20 mg tablet,delayed release (DR/EC) 20 mg PO BID fluticasone propionate 50 mcg/actuation spray,suspension 1 spray intranasal DAILY mirtazapine 15 mg tablet 15 mg PO BEDTIME multivitamin Tablet 1 tab PO DAILY fhtzwjly-npb-omlk fum-folic ac 7.5 mg iron-400 mcg tablet 1 tab PO DAILY meclizine 25 mg tablet 25 mg PO TID amitriptyline 25 mg tablet 50 mg PO BEDTIME 30 Days Qty: 60 3RF albuterol sulfate 90 mcg/actuation HFA aerosol inhaler 1 inh inhalation QID ferrous sulfate 325 mg (65 mg iron) tablet 325 mg PO DAILY ibuprofen 800 mg tablet 800 mg PO Q8H cholecalciferol (vitamin D3) 25 mcg (1,000 unit) capsule 25 mcg PO DAILY ondansetron HCl 4 mg tablet 4 mg PO Q8H
--- NOTE | 2022-07-21 07:48 | ECG_ITS ---
Test Reason : headache Blood Pressure : / mmHG Vent. Rate : 066 BPM Atrial Rate : 066 BPM P-R Int : 154 ms QRS Dur : 072 ms QT Int : 464 ms P-R-T Axes : 060 055 050 degrees QTc Int : 486 ms Normal sinus rhythm Low voltage QRS Prolonged QT Abnormal ECG No previous ECGs available Referred By: Brandt Barron Electronically Signed By:KAVEH CAAL MD
[2022-07-21] MEDS: Acetaminophen 325 MG TABLET 975 MG PO (08:02)
[2022-07-21] MEDS: diphenhydrAMINE HCL 50 MG/ML VIAL IVPUSH (08:02)
[2022-07-21] MEDS: Metoclopramide HCl 10 MG/2 ML VIAL IVPUSH (08:02)
[2022-07-21 08:03] LABS: MANUAL DIFF FLAG NO
[2022-07-21] MEDS: 0.9 % Sodium Chloride 1,000 ML 999 ML IV (08:03)
[2022-07-21 08:06] VITALS: BP 124/81; PULSE 69; RESP 189; O2SAT 98
[2022-07-21 08:08] LABS: Basophils Percent Auto 0.3 % (0-2); Eosinophils Absolute Auto 0.1 X10*3/uL (0.0-0.4); Eosinophils Percent Auto 1.3 % (0-4); Hematocrit 39.8 % (37.0-47.0); Hemoglobin 13.5 g/dl (12.0-16.0); Imm Gran Abs Auto 0.02 X10*3/uL (0.00-0.03); Imm Gran Pct Auto 0.2 % (0.0-0.4); Lymphocytes Absolute Auto 4.7 X10*3/uL (1.2-4.9); Lymphocytes Percent Auto 51.7 % (20-40); Mean Corpuscular HGB Conc 33.9 g/dl (31.0-35.0); Mean Corpuscular Hemoglobin 30.9 pg (27.0-33.0); Mean Corpuscular Volume 91.1 fL (80.0-98.0); Mean Platelet Volume 10.5 fL (9.4-12.3); Monocytes Absolute Auto 0.7 X10*3/uL (0.1-1.2); Monocytes Percent Auto 7.5 % (2-11); Neutrophils Absolute Auto 3.5 x10*3/uL (2.0-8.3); Platelet Count 226 X10*3/uL (160-400); Red Blood Count 4.37 X10*6/uL (4.20-5.50); Red Cell Distribution Width 12.4 % (11.0-16.0); White Blood Count 9.1 X10*3/uL (4.8-10.8)
[2022-07-21 08:23] LABS: IDNOW Serial# BCCEAD1C; Influenza A Negative (Negative); Influenza B2 Negative (Negative)
[2022-07-21 08:24] LABS: COVID-19 Test Negative (Negative); IDNOW Serial# 16C4AD1C
[2022-07-21 08:39] LABS: Appearance Urine Clear; Color Urine Dark Yellow; Glucose Urine UA Negative (Negative); Leukocyte Esterase Urine Negative (Negative); Nitrite Urine Negative (Negative); Specific Gravity - Urine 1.025 (1.005-1.025); Urine Blood Negative (Negative); Urine Ketones Negative (Negative); Urine Protein Negative (Neg-Trace)
[2022-07-21 08:48] LABS: Erythrocyte Sedimentation Rate 3 MM/HR (0-20)
[2022-07-21 08:56] LABS: Alanine Aminotransferase 20 U/L (0-31); Albumin Level 4.1 g/dL (3.5-5.0); Alkaline Phosphatase 63 U/L (39-117); Anion Gap 10 (12-20); Aspartate Amino Transferase 23 U/L (5-31); Bilirubin Total 0.4 mg/dL (0.0-1.0); Blood Urea Nitrogen 8 mg/dL (9-16); C Reactive Protein < 0.10 mg/dL (< or = 0.50); Calcium 8.9 mg/dL (8.4-10.2); Carbon Dioxide 27 mmol/L (22-29); Chloride 108 mmol/L (96-108); Creatinine Clr Calc Pharmacy 84.2; Estimated Glomerular Filt Rate > 60; Glucose Random 91 mg/dL (60-115); HCG Quantitative < 2 mIU/mL; Lipase 54 U/L (8-78); Potassium 3.7 mmol/L (3.3-5.1); Sodium 141 mmol/L (135-145); Total Protein 6.7 g/dL (6.5-8.0)
[2022-07-21 09:00] LABS: Prothrombin Time 10.9 SEC (10.0-13.1)
[2022-07-21 09:03] LABS: Partial Thromboplastin Time 26.4 SEC (26.0-36.4)
[2022-07-21] MEDS: iohexoL 350 MG/ML 100 ML INFUS..BTL 85 ML IV (09:22)
[2022-07-21 09:42] LABS: TSH reflex Free T4 6.42 uIU/mL (0.32-4.0)
[2022-07-21 12:04] LABS: Free T4 (Free Thyroxine) 0.95 ng/dL (0.71-1.85)
[2022-07-21] MEDS: ondansetron HCL 4 MG/2 ML VIAL IVPUSH (12:35)
[2022-07-21] MEDS: Ketorolac Tromethamine 30 MG/ML VIAL IVPUSH (12:35)
[2022-07-21 12:38] VITALS: BP 97/57; PULSE 68; RESP 18; O2SAT 98
--- NOTE | 2022-07-21 12:38 | PC.NURSE ---
medicated for pain, declined morphine, still has dizziness, skin wpd, nad
[2022-07-21 14:00] VITALS: BP 99/77; PULSE 66; RESP 18; TEMP 37.1; O2SAT 98
== END 2022-07-21 16:19 | disposition home or self-care (01) ==
PROVIDERS: Emergency Provider Emergency Medicine Emergency Medical Services
DX: R51.9 Headache, unspecified (principal); H53.2 Diplopia; M79.10 Myalgia, unspecified site; R42 Dizziness and giddiness; R60.0 Localized edema; Z20.822 Contact with and (suspected) exposure to COVID-19; Z79.899 Other long term (current) drug therapy
CPT/HCPCS: 36415; 70470; 71046; 80053; 81003; 82550; 83690; 84439; 84443; 84702; 85025; 85610; 85652; 85730; 86140; 87502; 87635; 93005; 93970; 96374; 96375; 99284; 99285; J1200; J1885; J2405; J2765; Q9967

== ENCOUNTER → 2022-10-11 22:27 | Outpatient (REF) | payer OTHER, SELFPAY | LOC: HO.SL 22:27 | PROVIDERS: Visit Provider Nurse Practitioner Family | DX: G47.19 Other hypersomnia (principal); R06.83 Snoring; R56.9 Unspecified convulsions | CPT/HCPCS: 95810 ==

== ENCOUNTER → 2022-10-13 15:00 | Outpatient (BNVA) | payer OTHER, SELFPAY | PROVIDERS: Visit Provider Nurse Practitioner Family | DX: R56.9 Unspecified convulsions (principal); R42 Dizziness and giddiness; G57.53 Tarsal tunnel syndrome, bilateral lower limbs; R20.2 Paresthesia of skin | CPT/HCPCS: 99212 ==

== ENCOUNTER → 2023-01-04 14:04 | Outpatient (BNVA) | payer MEDICAID, SELFPAY | PROVIDERS: PCP Nurse Practitioner Family; Visit Provider Nurse Practitioner Family | DX: R56.9 Unspecified convulsions (principal); R20.2 Paresthesia of skin; R53.1 Weakness; R42 Dizziness and giddiness ==

== ENCOUNTER 2023-07-27 11:03 | Outpatient (AMB) | payer MEDICAID, SELFPAY ==
--- NOTE | 2023-07-27 11:09 | MHC.OFFVIS ---
Intake Vital Signs 07/27/23 11:10 Height 5 ft 5 in Weight 170 lb BMI 28.3 BP 106/78 Blood Pressure Location Rt brachial Position Sitting Pulse 92 Pulse Source Pulse Oximeter Pulse Oximetry (%) 98 Oxygen Delivery Method Room Air Intake Visit Reasons: Follow up for -Seizures - Confirmed Intake Note: Patient presents for follow up seizures. Allergies No Known Allergies Allergy (Verified 07/27/23 11:12) Medication List - Last Reconciled 07/27/23 by AMIRAH Preciado albuterol sulfate 90 mcg/actuation 1 inh inhalation QID amitriptyline 50 mg (2 x 25 mg) PO BEDTIME 30 days cholecalciferol (vitamin D3) 25 mcg PO DAILY clonazepam 0.25 - 0.5 mg (0.5 - 1 x 0.5 mg) PO BEDTIME PRN 30 days diphenhydramine HCl (Benadryl Allergy) 25 mg PO TID PRN 7 days fluticasone propionate 50 mcg/actuation 1 spray intranasal DAILY gabapentin 100 mg b.i.d. and 300 mg q.h.s. orally; 30 days ibuprofen 800 mg PO Q8H indomethacin 25 - 50 mg (1 - 2 x 25 mg) PO BEDTIME 10 days lorazepam 0.25 - 0.5 mg (0.5 - 1 x 0.5 mg) PO DAILY PRN 14 days meclizine 25 mg PO TID PRN 14 days mirtazapine 15 mg PO BEDTIME geffnzpx-dmk-paai fum-folic ac 7.5 mg iron-400 mcg 1 tab PO DAILY multivitamin 1 tab PO DAILY omeprazole 20 mg PO BID 30 days ondansetron HCl 4 mg PO Q8H oxcarbazepine 600 mg (2 x 300 mg) PO BID 30 days pantoprazole 20 mg PO BID zolpidem 5 mg PO BEDTIME PRN HPI HPI Comments History of Present Illness Details 38-yr-old female presents for f/u visit. Pt was recently evaluated by [facility] epilepsy clinic. Pt underwent in-pt video EEG while off of Oxcarbazapine. VEEG did not reveal any epileptic discharges (per pt discharge summary). They advised her to continue Oxcarbazapine 600mg bid as ordered, report any new/different seizure like activity, and to have a Functional Neurological disorder Clinic- pt states she was unaware of this last recommendation. Pt reports her last convulsive episode was about a month ago. She is compliant w/ Trileptal 600mg bid. The headache is more worrisome for her. She is having very strong headaches, whole head squeezing, they come on for 4 seconds. They are a/w dizziness and nausea which can last for hours. These occur 2-3 x's per week. We had offered a trial of Indomethacin, however BM has advised pt to avoid all NSAIDs d/t cavernoma. She can sometimes have pain and swelling in the right occipital region, aggravated by pressing but the pain does not radiate. She denies any other headaches. She continues to have BLE feet pain. She did f/u w/ [facility]. They recommended surgical intervention, but she is wary as [facility] w/ [facility] outcome. She is using shoe inserts. She is interested in seeking a second orthopedic opinion. [facility] Medical History No known health problems Social History Alcohol intake: never Patient Tobacco Use Status: Never used Tobacco Review of Systems Const All systems reviewed & are unremarkable except as noted in HPI and below Physical Exam Vital Signs: Last Vital Signs Pulse 92 07/27/23 11:10 BP 106/78 07/27/23 11:10 Pulse Ox 98 07/27/23 11:10 Oxygen Delivery Method Room Air 07/27/23 11:10 BMI result Body Mass Index 28.3 Const General: cooperative and no acute distress Orientation/consciousness: patient oriented x3 HEENT Head: Yes normocephalic Resp Effort & Inspection: normal respiratory effort and able to speak in complete sentences Neuro General: patient oriented x3, gait normal and CN's II-XI intact bilaterally Cognition (Neuro): normal cognition Motor exam (neuro): 5/5 motor strength present throughout Psych Appearance: grossly normal Mental Status: mental status grossly normal Speech and movement: Normal speech and movement present Affect: normal affect Attitude: cooperative Thought process: Normal thought process present Thought content: Normal thought content present Insight: Good insight present (Psych) Judgement: Good judgement present (Psych) Assessment & Plan Assessment & Plan (1) Cavernous hemangioma of cerebellum: Code(s): D18.02 - Hemangioma of intracranial structures (2) New onset headache: Code(s): R51.9 - Headache, unspecified (3) Convulsions: Comment: January 2022: on an airplane to [place]. plane landed in [place]. MRI showed 9mm cerebellar hemangioma Code(s): R56.9 - Unspecified convulsions (4) Pressure in head: Code(s): R51.9 - Headache, unspecified (5) Tarsal tunnel syndrome, bilateral: Code(s): G57.53 - Tarsal tunnel syndrome, bilateral lower limbs Plan For convulsions: Reviewed pt's [facility] patient d/c summary. We will request official notes and VEEG results. Continue Trileptal 600mg bid.. Lorazepam 0.25-0.5mg at onset of convulsion s/s. For BLE tarsal tunnel syndrome a/w BLE pain: Will request 2nd ortho opinion- [facility]. For new onset squeezing/pressure headache: Pt advised to undergo brain MRA to assess for secondary vascular etiology. Continue Amitriptyline 50mg qhs. Hold Indomethacin order per BM advice. Note however that cavernoma itself is not a contraindication for NSAIDs. For right occipital neuralgia like LIZAMA: Consider pain management referral for ON block. For dizziness: Zofrna prn. f/u on review of above and in-clinic in 3 months or sooner prn. Orders: Orders MR angio head wo con Today D18.02 - Hemangioma of intracranial structures, R51.9 - Headache, unspecified, R56.9 - Unspecified convulsions Referrals Orthopedics Referral G57.53 - Tarsal tunnel syndrome, bilateral lower limbs Medications: Refilled oxcarbazepine 600 mg (2 x 300 mg) PO BID 120 tabs 6RF 30 days amitriptyline 50 mg (2 x 25 mg) PO BEDTIME 30 days 60 tabs 3RF Discontinued indomethacin administer with food or milk Discontinued Reason: Doctor's Order 25 - 50 mg (1 - 2 x 25 mg) PO BEDTIME 10 days 20 caps 0RF Coding Level of Care Code Est Pt Level 4 (86068) Diagnoses Cavernous hemangioma of cerebellum D18.02 New onset headache R51.9 Convulsions R56.9 Pressure in head R51.9 Tarsal tunnel syndrome, bilateral G57.53
[2023-07-27 11:10] VITALS: BP 106/78; PULSE 92; O2SAT 98; BMI 28.3
== END 2023-07-27 11:49 | disposition home or self-care (01) ==
PROVIDERS: PCP Nurse Practitioner Family; Visit Provider Nurse Practitioner Family
DX: D18.02 Hemangioma of intracranial structures (principal); R51.9 Headache, unspecified; R56.9 Unspecified convulsions; G57.53 Tarsal tunnel syndrome, bilateral lower limbs
CPT/HCPCS: 99214

== ENCOUNTER → 2023-07-27 11:03 | Outpatient (BNVA) | payer MEDICAID, SELFPAY | PROVIDERS: PCP Nurse Practitioner Family; Visit Provider Nurse Practitioner Family | DX: R56.9 Unspecified convulsions (principal); D18.02 Hemangioma of intracranial structures; R51.9 Headache, unspecified; G57.53 Tarsal tunnel syndrome, bilateral lower limbs | CPT/HCPCS: 99212 ==

== ENCOUNTER 2023-09-04 19:20 | Outpatient (REF) | payer MEDICAID, SELFPAY ==
--- NOTE | ~2023-09-04 | MR_ITS ---
EXAMINATION: MR ANGIOGRAPHY BRAIN WITHOUT CONTRAST CLINICAL INFORMATION: Headache COMPARISON: Relation is made with CT head 07/21/2022 TECHNIQUE: 3D [id number] MR angiography was performed through the brain without the use of intravenous gadolinium and axial source images were reviewed along with rotating MIPs. FINDINGS: Normal flow-related signal is seen within the anterior and posterior circulation. No focal flow-limiting stenosis, proximal large artery occlusion, or discrete saccular intracranial aneurysm is identified. No high flow vascular malformation. There is susceptibility artifact along the left para midline cerebellar hemisphere corresponding to reported history of cavernous malformation. Finding is suboptimally assessed on this nondedicated examination. MR/MR angio head wo con IMPRESSION: No hemodynamically significant stenosis, proximal vessel occlusion, or significant aneurysmal dilatation. 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 Finding appears grossly comparable in size to the prior CT examination but would be better assessed on routine MRI of the brain.
== END 2023-09-04 19:21 | disposition home or self-care (01) ==
LOC: HO.MRI 19:20
PROVIDERS: PCP Nurse Practitioner Family; Visit Provider Nurse Practitioner Family
DX: R51.9 Headache, unspecified (principal); R56.9 Unspecified convulsions; D18.02 Hemangioma of intracranial structures
CPT/HCPCS: 70544

== ENCOUNTER 2023-10-22 14:59 | Outpatient (AMB) | payer MEDICAID, SELFPAY ==
--- NOTE | 2023-10-22 15:07 | MHC.OFFVIS ---
Intake Vital Signs 10/22/23 15:11 Height 5 ft 5 in Weight 176 lb BMI 29.3 BP 110/72 Blood Pressure Location Rt brachial Position Sitting Pulse 92 Pulse Source Pulse Oximeter Pulse Oximetry (%) 98 Oxygen Delivery Method Room Air Intake Visit Reasons: 3 mnts f/u for Seizures-CONF Intake Note: Patient presents for 3 month follow up. the only think is my hand getting swollen and my foot is also swelling up Allergies No Known Allergies Allergy (Verified 10/22/23 15:12) Medication List - Last Reconciled 10/22/23 by AMIRAH Preciado albuterol sulfate 90 mcg/actuation 1 inh inhalation QID amitriptyline 50 mg PO BEDTIME 30 days cholecalciferol (vitamin D3) 25 mcg PO DAILY clonazepam 0.25 - 0.5 mg (0.5 - 1 x 0.5 mg) PO BEDTIME PRN 30 days diphenhydramine HCl (Benadryl Allergy) 25 - 50 mg (1 - 2 x 25 mg) PO TID PRN 30 days fluticasone propionate 50 mcg/actuation 1 spray intranasal DAILY gabapentin 400mg q afternoon and 800mg qhs orally bedtime; 30 days ibuprofen 800 mg PO Q8H lorazepam 0.25 - 0.5 mg (0.5 - 1 x 0.5 mg) PO DAILY PRN 14 days meclizine 25 mg PO TID PRN 14 days mirtazapine 15 mg PO BEDTIME [id number] fum-folic ac 7.5 mg iron-400 mcg 1 tab PO DAILY multivitamin 1 tab PO DAILY omeprazole 20 mg PO BID 30 days ondansetron HCl 4 mg PO Q8H oxcarbazepine 600 mg (2 x 300 mg) PO BID 30 days pantoprazole 20 mg PO BID sumatriptan succinate 50 - 100 mg orally at onset of headache, may repeat in 2 hrs PRN; max 2 tabs per day or 4 tabs/week (may take with Tylenol) 30 days zolpidem 5 mg PO BEDTIME PRN HPI HPI Comments History of Present Illness Details 38-yr-old female presents for f/u visit. Pt denies any significant interval medical changes. Since the last visit, pt had called the office with report of worsening headache- Holocranial pressure associated with light and sound sensitivity, allodynia, nausea x's 2 days. She denied any significant autonomic symptoms.Tylenol did not help. She was avoiding NSAIDs per [facility] due to the cavernoma. She did not want to go to the ER. Sent order for sumatriptan and Benadryl. She continues to have headaches, they are milder. She never received Sumatriptan. She continues to have BLE, R > L, pain, cramps, especially right medial foot swelling. The orthopedic consult for 2nd opinion was [place] [facility] [place]- pt states they have her referral and will call her when they have an appt. She states her PCP tried to order her a shoe insert- however insurnace denied. She is taking Gabapentin 7 100mg (700mg) caps qhs. She is having BUE hand pain, swelling, more so on right. Having difficulty opening jars. Pt reports she had another convulsion last week. Thought maybe it was related to her blood sugars. We requested her to have blood work but she has not done it yet. [facility] Medical History No known health problems Social History Alcohol intake: never Patient Tobacco Use Status: Never used Tobacco Physical Exam Vital Signs: Last Vital Signs Pulse 92 10/22/23 15:11 BP 110/72 10/22/23 15:11 Pulse Ox 98 10/22/23 15:11 Oxygen Delivery Method Room Air 10/22/23 15:11 BMI result Body Mass Index 29.3 Const General: cooperative and no acute distress Orientation/consciousness: patient oriented x3 Resp Effort & Inspection: normal respiratory effort and able to speak in complete sentences Neuro Other: Right medial foot swelling- palpating medial malleolus elicits pain into left medial in-step. RUE- positive medial compression test. Mild right thenar region- mild swelling. CMS +. General: patient oriented x3 Cranial nerves: Yes CN's II-XII intact bilaterally Cognition (Neuro): normal cognition Psych Appearance: grossly normal Mental Status: mental status grossly normal Speech and movement: Normal speech and movement present Affect: normal affect Attitude: cooperative Assessment & Plan Assessment & Plan (1) Convulsions: Comment: January 2022: on an [place] in [place]. MRI showed 9mm cerebellar hemangioma. Evaluated [place] [facility] [place]rology- Video EEG results c/w Non-Epileptic Convulsions Code(s): R56.9 - Unspecified convulsions (2) Tarsal tunnel syndrome, bilateral: Code(s): G57.53 - Tarsal tunnel syndrome, bilateral lower limbs (3) Migraine without aura: Code(s): G43.009 - Migraine without aura, not intractable, without status migrainosus (4) Paresthesia: Code(s): R20.2 - Paresthesia of skin (5) Weakness: Code(s): R53.1 - Weakness Plan For convulsions: Reviewed [facility]- VEEG results c/w non-epileptic convulsions. Pt is f/b therapist. Could consider referal to a functional neurological disorder clinic. Continue Trileptal 600mg bid.. Lorazepam 0.25-0.5mg at onset of convulsion s/s. ? For BLE tarsal tunnel syndrome a/w BLE pain: Increase Gabapentin to 400mg q afternon and 800mg qhs. [facility] [place] appt for 2nd ortho opinion- consult appt pending. Will requet local podiatry eval for ? orthotics. Try BLE foam rolling, stretching. For BUE paresthesias, swelling, hand weakness, R > L: BUE EMG/NCS. ? For newer onset squeezing/pressure headache: Reviewed brain MRA- No findings to account for pt's LIZAMA s/s. No hemodynamically significant stenosis, proximal vessel occlusion, or significant aneurysmal dilatation. 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 Continue Amitriptyline 50mg qhs. Again trial Sumatriptan 100mg prn. Hold Indomethacin order per advice. Note however that cavernoma itself is not a contraindication for NSAIDs. ? For right occipital neuralgia like LIZAMA: Consider pain management referral for ON block. ? For dizziness: Zofran prn. ? f/u in-clinic in 3 months or sooner prn. Orders: Orders NE electromyogram (EMG) Today M79.643 - Pain in unspecified hand, R20.2 - Paresthesia of skin, R53.1 - Weakness NE nerve conduction velocity Today M79.643 - Pain in unspecified hand, R20.2 - Paresthesia of skin, R53.1 - Weakness Referrals Podiatry Referral G57.53 - Tarsal tunnel syndrome, bilateral lower limbs, R20.2 - Paresthesia of skin Medications: New gabapentin 400mg q afternoon and 800mg qhs orally bedtime; 30 days 90 caps 4RF amitriptyline 50 mg PO BEDTIME 30 days 30 tabs 4RF Changed From diphenhydramine HCl (Benadryl Allergy) 25 - 50 mg (1 - 2 x 25 mg) PO TID 7 days PRN 42 tabs 0RF migraine headache To diphenhydramine HCl (Benadryl Allergy) 25 - 50 mg (1 - 2 x 25 mg) PO TID 30 days PRN 60 tabs 1RF migraine headache Refilled oxcarbazepine 600 mg (2 x 300 mg) PO BID 30 days 120 tabs 6RF sumatriptan succinate (0.5 - 1 x 100 mg) 50 - 100 mg orally at onset of headache, may repeat in 2 hrs PRN; max 2 tabs per day or 4 tabs/week (may take with Tylenol) 30 days 12 tabs 6RF migraine headache Discontinued gabapentin Discontinued Reason: Doctor's Order 100 mg b.i.d. and 300 mg q.h.s. orally; 30 days 150 caps 3RF amitriptyline Discontinued Reason: Doctor's Order 50 mg (2 x 25 mg) PO BEDTIME 30 days 60 tabs 3RF Coding Level of Care Code Est Pt Level 4 (14810) Diagnoses Convulsions R56.9 Tarsal tunnel syndrome, bilateral G57.53 Migraine without aura G43.009 Paresthesia R20.2 Weakness R53.1
[2023-10-22 15:11] VITALS: BP 110/72; PULSE 92; O2SAT 98; BMI 29.3
== END 2023-10-22 15:51 | disposition home or self-care (01) ==
PROVIDERS: PCP Nurse Practitioner Family; Visit Provider Nurse Practitioner Family
DX: R56.9 Unspecified convulsions (principal); G57.53 Tarsal tunnel syndrome, bilateral lower limbs; G43.009 Migraine without aura, not intractable, without status migrainosus; R20.2 Paresthesia of skin; R53.1 Weakness
CPT/HCPCS: 99214

== ENCOUNTER → 2023-10-22 14:59 | Outpatient (BNVA) | payer MEDICAID, SELFPAY | PROVIDERS: PCP Nurse Practitioner Family; Visit Provider Nurse Practitioner Family | DX: R56.9 Unspecified convulsions (principal); G57.53 Tarsal tunnel syndrome, bilateral lower limbs; G43.009 Migraine without aura, not intractable, without status migrainosus; R20.2 Paresthesia of skin; R53.1 Weakness | CPT/HCPCS: 99212 ==

== ENCOUNTER 2024-02-08 13:17 | Outpatient (REF) | payer MEDICAID, SELFPAY ==
--- NOTE | 2024-02-08 13:21 | EMG_ITS ---
Chief complaint: Bilateral hand pain Reason for referral: Evaluate for Carpal Tunnel Syndrome Referred by: Angy Smiley NP Procedure done: Bilateral upper extremities NCS/EMG Precautions and/or limitations: None The limb temperature was monitored continuously and remained between 32-36 degrees C during the performance of the NCS. Nerve Conduction Studies Anti Sensory Summary Table ?Stim Site NR Onset (ms) Norm Onset (ms) Peak (ms) Norm Peak (ms) O-P Amp (?V) Norm O-P Amp Site1 Site2 Delta-0 (ms) Dist (cm) Chandan (m/s) Norm Chandan (m/s) Left Median Anti Sensory (2nd Digit) Wrist ? 2.4 2.9 <3.6 49.1 >10 Wrist 2nd Digit 2.4 14.0 58 Right Median Anti Sensory (2nd Digit) Wrist ? 2.5 3.3 <3.6 37.7 >10 Wrist 2nd Digit 2.5 14.0 56 Left Ulnar Anti Sensory (5th Digit) Wrist ? 1.7 2.8 <3.7 20.3 >15.0 Wrist 5th Digit 1.7 14.0 82 Right Ulnar Anti Sensory (5th Digit) Wrist ? 2.1 2.7 <3.7 47.6 >15.0 Wrist 5th Digit 2.1 14.0 67 Motor Summary Table ?Stim Site NR Onset (ms) Norm Onset (ms) O-P Amp (mV) Norm O-P Amp iAmp (mV) Amp (1st) (%) Site1 Site2 Delta-0 (ms) Dist (cm) Chandan (m/s) Norm Chandan (m/s) Left Median Motor (Abd Poll Brev) Wrist ? 3.4 <3.9 9.9 >4.5 11.0 100.0 Elbow Wrist 4.0 22.0 55 >45 Elbow ? 7.4 9.1 10.1 91.9 Right Median Motor (Abd Poll Brev) Wrist ? 3.3 <3.9 11.5 >4.5 13.2 100.0 Elbow Wrist 3.9 22.0 56 >45 Elbow ? 7.2 10.9 12.7 94.8 Left Ulnar Motor (Abd Dig Minimi) Wrist ? 2.3 <3.0 8.2 >5 9.5 100.0 B Elbow Wrist 3.7 20.0 54 >45 B Elbow ? 6.0 7.8 9.2 95.1 A Elbow B Elbow 1.7 10.0 59 >45 A Elbow ? 7.7 7.4 8.7 90.2 Right Ulnar Motor (Abd Dig Minimi) Wrist ? 2.9 <3.0 10.1 >5 11.6 100.0 B Elbow Wrist 3.0 20.0 67 >45 B Elbow ? 5.9 11.4 13.3 112.9 A Elbow B Elbow 1.4 10.0 71 >45 A Elbow ? 7.3 10.9 12.8 107.9 Comparison Summary Table ?Stim Site NR Peak (ms) Norm Peak (ms) P-T Amp (?V) Site1 Site2 Delta-P (ms) Norm Delta (ms) Left Median/Radial Dig I Comparison (Digit 1 - 10cm) Median ? 2.4 <2.9 99.1 Median Radial 0.2 Radial ? 2.2 <2.8 32.8 Right Median/Radial Dig I Comparison (Digit 1 - 10cm) Median ? 2.6 <2.9 1190.6 Median Radial 0.5 Radial ? 2.1 <2.8 54.4 EMG ?Side Muscle Nerve Root Ins Act Fibs Psw Amp Dur Poly Recrt Int Pat Comment Right 1stDorInt Ulnar C8-T1 Nml Nml Nml Nml Nml 0 Nml Complete Right FlexCarRad Median C6-7 Nml Nml Nml Nml Nml 0 Nml Complete Right Biceps Musculocut C5-6 Nml Nml Nml Nml Nml 0 Nml Complete Right Triceps Radial C6-7-8 Nml Nml Nml Nml Nml 0 Nml Complete Right Deltoid Axillary C5-6 Nml Nml Nml Nml Nml 0 Nml Complete Left 1stDorInt Ulnar C8-T1 Nml Nml Nml Nml Nml 0 Nml Complete Left FlexCarRad Median C6-7 Nml Nml Nml Nml Nml 0 Nml Complete Left Biceps Musculocut C5-6 Nml Nml Nml Nml Nml 0 Nml Complete Left Triceps Radial C6-7-8 Nml Nml Nml Nml Nml 0 Nml Complete Left Deltoid Axillary C5-6 Nml Nml Nml Nml Nml 0 Nml Complete FINDINGS: Interlatency difference between right median radial nerve insert 0.5; 0.2 on left. All motor and sensory nerves tested showed normal latencies, amplitudes and conduction velocities. Concentric needle EMG was performed in selected muscles of the bilateral upper extremities. Study did not reveal signs of electric abnormalities as shown in the table above. IMPRESSION: 1. This is a normal study. 2. There is no electrodiagnostic evidence for median neuropathy, ulnar neuropathy, brachial plexopathy, or cervical radiculopathy. Thank you for your kind referral. Jillian Macdonald MD, NALLELY Board Certified, [place] [employer] and Rehabilitation (ABPMR) Board Certified, [place] Board of Electrodiagnostic Medicine (ABEM) CODIN [id number] x 2 MTDD
[2024-02-08 14:06] LABS: MANUAL DIFF FLAG NO
[2024-02-08 14:51] LABS: Basophils Percent Auto 0.3 % (0-2); Eosinophils Absolute Auto 0.1 X10*3/uL (0.0-0.4); Eosinophils Percent Auto 0.9 % (0-4); Hematocrit 38.9 % (37.0-47.0); Hemoglobin 13.1 g/dl (12.0-16.0); Imm Gran Abs Auto 0.01 X10*3/uL (0.00-0.03); Imm Gran Pct Auto 0.1 % (0.0-0.4); Lymphocytes Absolute Auto 2.6 X10*3/uL (1.2-4.9); Lymphocytes Percent Auto 35.2 % (20-40); Mean Corpuscular HGB Conc 33.7 g/dl (31.0-35.0); Mean Corpuscular Hemoglobin 31.3 pg (27.0-33.0); Mean Corpuscular Volume 93.1 fL (80.0-98.0); Mean Platelet Volume 10.9 fL (9.4-12.3); Monocytes Absolute Auto 0.5 X10*3/uL (0.1-1.2); Monocytes Percent Auto 6.2 % (2-11); Neutrophils Absolute Auto 4.2 x10*3/uL (2.0-8.3); Neutrophils Percent Auto 57.3 % (45-73); Platelet Count 221 X10*3/uL (160-400); Red Blood Count 4.18 X10*6/uL (4.20-5.50); White Blood Count 7.4 X10*3/uL (4.8-10.8)
[2024-02-08 15:04] LABS: Estimated Average Glucose 100 mg/dL; Hemoglobin A1c % 5.1 % (<6.0)
[2024-02-08 15:25] LABS: Alanine Aminotransferase 24 U/L (0-31); Albumin Level 4.1 g/dL (3.5-5.0); Alkaline Phosphatase 62 U/L (39-117); Anion Gap 8 (12-20); Aspartate Amino Transferase 21 U/L (5-31); Bilirubin Total 0.3 mg/dL (0.0-1.0); Blood Urea Nitrogen 11 mg/dL (9-16); Carbon Dioxide 30 mmol/L (22-29); Chloride 105 mmol/L (96-108); Estimated Glomerular Filt Rate > 60; Glucose Random 99 mg/dL (60-115); Potassium 3.9 mmol/L (3.3-5.1); Sodium 139 mmol/L (135-145); Total Protein 7.1 g/dL (6.5-8.0)
[2024-02-08 15:28] LABS: Rheumatoid Factor < 13.0 IU/mL (<15.0)
[2024-02-08 15:40] LABS: Erythrocyte Sedimentation Rate 5 MM/HR (0-20)
[2024-02-08 15:59] LABS: Folate 12.3 ng/mL (> or = 4.0); Vitamin B12 944 pg/mL (200-900)
[2024-02-12 17:19] LABS: CRP High Sensitivity 0.9 mg/L
[2024-02-13 12:48] LABS: Anti Nuclear Antibody Screen NEGATIVE (NEGATIVE)
== END 2024-02-08 13:18 | disposition home or self-care (01) ==
LOC: HO.NEURO 13:17
PROVIDERS: PCP Nurse Practitioner Family; Visit Provider Nurse Practitioner Family
DX: R20.2 Paresthesia of skin (principal); R53.1 Weakness; R56.9 Unspecified convulsions; R51.9 Headache, unspecified
CPT/HCPCS: 36415; 80053; 82607; 82746; 83036; 85025; 85652; 86038; 86141; 86431; 95886; 95911

== ENCOUNTER → 2024-02-08 13:21 | Outpatient (BNV) | payer MEDICAID, SELFPAY | PROVIDERS: PCP Nurse Practitioner Family; Visit Provider Physical Medicine & Rehabilitation | DX: M79.641 Pain in right hand (principal); M79.642 Pain in left hand; R20.2 Paresthesia of skin | CPT/HCPCS: 95886; 95911 ==

== ENCOUNTER 2024-02-15 14:57 | Outpatient (AMB) | payer MEDICAID, SELFPAY ==
--- NOTE | 2024-02-15 15:06 | A.OFFVIS_ITS ---
Vital Signs 02/15/24 15:11 Height 5 ft 5 in Weight 181 lb 2 oz BMI 30.1 BP 112/70 Blood Pressure Location Lt brachial Position Sitting Pulse 98 Pulse Source Pulse Oximeter Pulse Oximetry (%) 97 Oxygen Delivery Method Room Air Intake Visit Reasons: 3-4 mo f/u-CONF Intake Note: Patient presents for f/u. Having pain and inflammation on right arm/hand. Having lots of migraine. Slab Grinder Required: Yes Slab Grinder Services: Slab Grinder Present Slab Grinder Name: Malia [id number] Allergies No Known Allergies Allergy (Verified 02/15/24 15:10) Medication List - Last Reconciled 02/15/24 by AMIRAH Preciado albuterol sulfate 90 mcg/actuation 1 inh inhalation QID amitriptyline 50 mg PO BEDTIME 30 days cholecalciferol (vitamin D3) 25 mcg PO DAILY clonazepam 0.25 - 0.5 mg (0.5 - 1 x 0.5 mg) PO BEDTIME PRN 30 days diphenhydramine HCl (Benadryl Allergy) 25 - 50 mg (1 - 2 x 25 mg) PO TID PRN 30 days fluticasone propionate 50 mcg/actuation 1 spray intranasal DAILY gabapentin 400mg q afternoon and 800mg qhs orally bedtime; 30 days ibuprofen 800 mg PO Q8H lorazepam 0.25 - 0.5 mg (0.5 - 1 x 0.5 mg) PO DAILY PRN 14 days meclizine 25 mg PO TID PRN 14 days mirtazapine 15 mg PO BEDTIME ggyrwkuz-mlt-nife fum-folic ac 7.5 mg iron-400 mcg 1 tab PO DAILY multivitamin 1 tab PO DAILY omeprazole 20 mg PO BID 30 days ondansetron HCl 4 mg PO Q8H oxcarbazepine 600 mg (2 x 300 mg) PO BID 30 days pantoprazole 20 mg PO BID sumatriptan succinate 50 - 100 mg orally at onset of headache, may repeat in 2 hrs PRN; max 2 tabs per day or 4 tabs/week (may take with Tylenol) 30 days zolpidem 5 mg PO BEDTIME PRN HPI Comments Details: 38-yr-old female presents for f/u visit of multiple concerns- convulsions, headaches, swelling, tarsal tunnel syndrome. She is noticing more migraine headaches, and when her migraines are more severe she is having more convulsions. 2 months ago, she was having daily migraine. In the last month, she has had 7-8 severe migraine days. When she has severe migarine she cannot function or do her daily activities. Sumatriptan and Tylenol helps. The first time she took Sumatriptan, she felt tachycardia but realized she it was a common side effect and it subsided. Since, she has toelrated it well. She is also concerned about having BUE R > L and BLE distal swelling. She notes her veins are more visible. She is having difficulty using her right hand, has right thenar region discomfort when opening jars etc. The BUE EMG/NCS was normal. She states she had f/u [facility] for bilateral tarsal tunnel syndrome. Sates she is undergoing f/u work-up. And needs an updated BLE EMG/NCS. [place] app[place] [facility] [place]. She had an episode recently- right medial stabbing pain for a few minutes- the area was bothersome to touch. She has not had this before or after. She can be lightheaded. Her HR can run > 100 at times. Her BP is usually low or low-norm. [facility] Medical History No known health problems Social History Alcohol intake: never Patient Tobacco Use Status: Never used Tobacco Physical Exam Vital Signs: Last Vital Signs Pulse 98 02/15/24 15:11 BP 112/70 02/15/24 15:11 Pulse Ox 97 02/15/24 15:11 Oxygen Delivery Method Room Air 02/15/24 15:11 BMI result Body Mass Index 30.1 Const General: cooperative and no acute distress Orientation/consciousness: patient oriented x3 Resp Effort & Inspection: normal respiratory effort and able to speak in complete sentences Neuro General: patient oriented x3 Cranial nerves: Yes CN's II-XII intact bilaterally Cognition (Neuro): normal cognition Gait exam (Neuro): Antalgic gait present Extrem Other: Mild bilateral hand and pedal/ankle swelling Psych Appearance: grossly normal Mental Status: mental status grossly normal Speech and movement: Normal speech and movement present Affect: normal affect Attitude: cooperative Assessment & Plan Assessment & Plan (1) Tachycardia: Code(s): R00.0 - Tachycardia, unspecified Category: Medical (2) Tarsal tunnel syndrome, bilateral: Code(s): G57.53 - Tarsal tunnel syndrome, bilateral lower limbs Category: Medical (3) Swelling: Code(s): R60.9 - Edema, unspecified Category: Medical (4) Migraine without aura: Code(s): G43.009 - Migraine without aura, not intractable, without status migrainosus Category: Medical (5) Convulsions: Comment: January 2022: on an airplane to [place]. plane landed in [place]. MRI showed 9mm cerebellar hemangioma. Evaluated by [facility] Neurology- Video EEG results c/w Non-Epileptic Convulsions Code(s): R56.9 - Unspecified convulsions Category: Medical Plan For tachycardia and recent episode of right chest discomfort: Recheck TSH level. Check EKG. For convulsions: Reviewed [facility]- VEEG results c/w non-epileptic convulsions. Pt is f/b therapist. Could consider referal to a functional neurological disorder clinic. Continue Trileptal 600mg bid.. Lorazepam 0.25-0.5mg at onset of convulsion s/s. ? For BLE tarsal tunnel syndrome a/w BLE pain: Continue Gabapentin 400mg q afternoon and 800mg qhs- may consider weaning off as this may contribute to swelling. Will order f/u BLE EMG/NCS. F/u w/ [facility] as scheduled. [facility] [place]ics appt for 2nd ortho opinion- consult appt pending. For BUE paresthesias, swelling, hand weakness, R > L: BUE EMG/NCS- normal. Will request vascular consult. ? For migraine headache: Start Emgality 240mg sc x's 1 then 120mg sc q month for migraine prevention. Continue Amitriptyline 50mg qhs- consider decreasing if Emgality effective. Continue Sumatriptan 100mg prn, may adjunct w/ Tylenol. Contraindications: Aimovig d/t pt has leg cramps. Beta-blockers d/t hypotension/convulsions/syncope. NSAIDs/Indomethacin- per BM advice. Note however that cavernoma itself is not a contraindication for NSAIDs. ?? For dizziness: Zofran prn. ? f/u in-clinic in 3-6 months or sooner prn. Orders: Orders ECG 12 lead EKG Today G57.53 - Tarsal tunnel syndrome, bilateral lower limbs, R00.0 - Tachycardia, unspecified TSH reflex Free T4 Today R53.83 - Other fatigue NE nerve conduction velocity Today G57.53 - Tarsal tunnel syndrome, bilateral lower limbs NE electromyogram (EMG) Today G57.53 - Tarsal tunnel syndrome, bilateral lower limbs Referrals Vascular Surgery Referral R60.9 - Edema, unspecified Medications: New galcanezumab-gnlm (Emgality Pen) Loading dose: 120 mg subcu injection x2 in alternate sites (total 240 mg). To be followed by maintenance dose of 120 mg subcu q.month. 240 mg (2 mL) subcut ONCE 30 days 2 mL 0RF Coding Level of Care Code Est Pt Level 4 (76635) Complex EM visit Add On G2211 Diagnoses Tachycardia R00.0 Tarsal tunnel syndrome, bilateral G57.53 Swelling R60.9 Migraine without aura G43.009 Convulsions R56.9
[2024-02-15 15:11] VITALS: BP 112/70; PULSE 98; O2SAT 97; BMI 30.1
== END 2024-02-15 16:16 | disposition home or self-care (01) ==
PROVIDERS: PCP Nurse Practitioner Family; Visit Provider Nurse Practitioner Family
DX: R00.0 Tachycardia, unspecified (principal); G57.53 Tarsal tunnel syndrome, bilateral lower limbs; R60.9 Edema, unspecified; G43.009 Migraine without aura, not intractable, without status migrainosus; R56.9 Unspecified convulsions
CPT/HCPCS: 99214

== ENCOUNTER → 2024-02-15 14:57 | Outpatient (BNVA) | payer MEDICAID, SELFPAY | PROVIDERS: PCP Nurse Practitioner Family; Visit Provider Nurse Practitioner Family | DX: R00.0 Tachycardia, unspecified (principal); G57.53 Tarsal tunnel syndrome, bilateral lower limbs; R60.9 Edema, unspecified; G43.009 Migraine without aura, not intractable, without status migrainosus; R56.9 Unspecified convulsions; Z79.899 Other long term (current) drug therapy | CPT/HCPCS: 99212 ==

== ENCOUNTER → 2024-03-03 13:11 | Outpatient (BNVA) | payer MEDICAID, SELFPAY | PROVIDERS: PCP Nurse Practitioner Family; Visit Provider Nurse Practitioner Family ==

== ENCOUNTER 2024-03-04 10:13 | Outpatient (REF) | payer MEDICAID, SELFPAY ==
--- NOTE | 2024-03-04 10:16 | EMG_ITS ---
Bilateral tibial and peroneal motor studies were performed. Bilateral superficial peroneal, sural and medial lateral mixed plantar studies were performed. Tibial H reflexes were obtained and paraspinal muscles were tested with a needle. 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 Otherwise, no significant abnormality noted. MD SALLY Collins/RENU / [id number]
[2024-03-04 12:28] LABS: TSH reflex Free T4 1.47 uIU/mL (0.32-4.0)
== END 2024-03-04 10:14 | disposition home or self-care (01) ==
LOC: HO.NEURO 10:13
PROVIDERS: PCP Nurse Practitioner Family; Visit Provider Nurse Practitioner Family
DX: G57.53 Tarsal tunnel syndrome, bilateral lower limbs (principal); R53.83 Other fatigue
CPT/HCPCS: 36415; 84443; 95886; 95913

== ENCOUNTER 2024-09-02 14:35 | Outpatient (AMB) | payer MEDICAID, SELFPAY ==
--- NOTE | 2024-09-02 14:37 | A.OFFVIS_ITS ---
Vital Signs 09/02/24 14:39 Height 5 ft 5 in Weight 179 lb 6 oz BMI 29.8 BP 112/78 Blood Pressure Location Rt brachial Position Sitting Pulse 85 Pulse Source Pulse Oximeter Pulse Oximetry (%) 98 Oxygen Delivery Method Room Air Intake Visit Reasons: Follow up Allergies No Known Allergies Allergy (Verified 09/02/24 14:40) Medication List - Last Reconciled 09/02/24 by AMIRAH Preciado albuterol sulfate 90 mcg/actuation 1 inh inhalation QID amitriptyline 50 mg PO BEDTIME 30 days cholecalciferol (vitamin D3) 25 mcg PO DAILY clonazepam 0.25 - 0.5 mg (0.5 - 1 x 0.5 mg) PO BEDTIME PRN 30 days diphenhydramine HCl (Benadryl Allergy) 25 - 50 mg (1 - 2 x 25 mg) PO TID PRN 30 days fluticasone propionate 50 mcg/actuation 1 spray intranasal DAILY gabapentin 400mg q afternoon and 800mg qhs orally bedtime; 30 days galcanezumab-gnlm (Emgality Pen) 120 mg subcut ONCE 30 days ibuprofen 800 mg PO Q8H lorazepam 0.25 - 0.5 mg (0.5 - 1 x 0.5 mg) PO DAILY PRN 14 days meclizine 25 mg PO TID PRN 14 days mirtazapine 15 mg PO BEDTIME lkzbjpxu-vqg-rurr fum-folic ac 7.5 mg iron-400 mcg 1 tab PO DAILY multivitamin 1 tab PO DAILY omeprazole 20 mg PO BID 30 days ondansetron HCl 4 mg PO Q8H oxcarbazepine 600 mg (2 x 300 mg) PO BID 30 days pantoprazole 20 mg PO BID sumatriptan succinate 50 - 100 mg orally at onset of headache, may repeat in 2 hrs PRN; max 2 tabs per day or 4 tabs/week (may take with Tylenol) 30 days zolpidem 5 mg PO BEDTIME PRN HPI Comments Details: 39-yr-old female presents for f/u visit of multiple concerns- convulsions, headaches, swelling, tarsal tunnel syndrome. Into real TSH-1.47 WNL. Pt reports the headache is an internal holocranial pressure- as if if her head will explode open lasting about 50 seconds. During the attack, she cannot speak or move. After the attack, she denies any residual symptoms or pain. The first time this happened, she had 3 episodes in 1 night. Usually occurring when asleep. Since, she may have an attack 3 times a week, or every other week. The right occipital region has been feeling inflamed and is painful to the touch. Patient also endorses increased snoring, difficulty sleeping, and excessive daytime sleepiness. States the Emgality has been very helpful in addition to the amitriptyline- was rarely having a migraine at all. However, she has not had the Emgality since June. And since, she has had a migraine almost every day. The migraine is usually bifrontal pressure a/w photophobia, phonophobia, nausea, external dizziness. She is still having BUE R > L and BLE distal swelling. She notes her veins are more visible. She is having difficulty using her right hand, has right thenar region discomfort when opening jars etc. 06/21/2022: BUE EMG/NCS was normal. 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 This is consistent with results from June 2022 She states she has not had f/u with [facility] for bilateral tarsal tunnel syndrome-as she is not interested in surgery for this at this time. She was hoping to see vascular 1st, needs help to reschedule the appointment. [facility] Medical History No known health problems Social History Alcohol intake: never Patient Tobacco Use Status: Never used Tobacco Physical Exam Vital Signs: Last Vital Signs Pulse 85 09/02/24 14:39 BP 112/78 09/02/24 14:39 Pulse Ox 98 09/02/24 14:39 Oxygen Delivery Method Room Air 09/02/24 14:39 BMI result Body Mass Index 29.8 Const General: cooperative and no acute distress Orientation/consciousness: patient oriented x3 Resp Effort & Inspection: normal respiratory effort and able to speak in complete sentences Neuro General: patient oriented x3 Cranial nerves: Yes CN's II-XII intact bilaterally Cognition (Neuro): normal cognition Gait exam (Neuro): Antalgic gait present Psych Appearance: grossly normal Mental Status: mental status grossly normal Speech and movement: Normal speech and movement present Affect: normal affect Attitude: cooperative Assessment & Plan Assessment & Plan (1) New onset headache: Code(s): R51.9 - Headache, unspecified Category: Medical (2) Tarsal tunnel syndrome, bilateral: Code(s): G57.53 - Tarsal tunnel syndrome, bilateral lower limbs Category: Medical (3) Swelling: Code(s): R60.9 - Edema, unspecified Category: Medical (4) Migraine without aura: Code(s): G43.009 - Migraine without aura, not intractable, without status migrainosus Category: Medical (5) Convulsions: Comment: January 2022: on an airplane to [place]. matute landed in [place]. MRI showed 9mm cerebellar hemangioma. Evaluated by [facility] Neurology- Video EEG results c/w Non-Epileptic Convulsions Code(s): R56.9 - Unspecified convulsions Category: Medical (6) Nocturnal headaches: Code(s): R51.9 - Headache, unspecified Category: Medical Plan For new onset nocturnal headache: Patient is advised to undergo HST to assess for sleep apnea Patient is advised to undergo follow-up brain MRI with and without contrast to assess for secondary etiologies in setting of known cerebellar cavernous hemangioma. Trial low dose propranolol 10-20 mg q.h.s.- advised to notify us if she develops any signs of orthostatic lightheadedness, worsening dizziness. If patient tolerates this, we may consider low-dose propranolol ER. Had consider trial of indomethacin q.h.s., however patient is wary to use NSAIDs due to the presence of the cavernous hemangioma. Also had discussed trying caffeine q.h.s., however patient was worried this would further interfere with her sleep quality. For convulsions: [facility]- VEEG results c/w non-epileptic convulsions. Pt is f/b therapist. Could consider referal to a functional neurological disorder clinic. Continue Trileptal 600mg bid-may help mood and headaches as well. Lorazepam 0.25-0.5mg at onset of convulsion s/s. ? For BLE tarsal tunnel syndrome a/w BLE pain: Review of [facility] shows patient has not filled Gabapentin in multiple months.. Reviewed BLE EMG/NCS-stable bilateral moderate tibial neuropathy. Upon review, revisit referring back to [facility] or [facility] orthopedics appt for 2nd ortho opinion-previously requested.. For BUE paresthesias, swelling, hand weakness, R > L: BUE EMG/NCS- normal. Will follow-up on request for vascular consult. ? For migraine headache: Resume Emgality as patient had greater than 50% reduction in monthly migraine days with use. She should resume Emgality with loading dose 240mg sc x's 1 then resume 120mg sc q month for migraine prevention. Continue Amitriptyline 50mg qhs- consider decreasing if Emgality is again effective. Continue Sumatriptan 100mg prn, may adjunct w/ Tylenol. Contraindications: Aimovig d/t pt has leg cramps. Beta-blockers d/t hypotension/convulsions/syncope. NSAIDs/Indomethacin- per BM advice. Note however that cavernoma itself is not an absolute contraindication for NSAIDs. ?? For dizziness: Zofran prn. ? f/u in-clinic in 3-6 months or sooner prn. Orders: Orders MR head/brain wo/w con 09/02/24 R51.9 - Headache, unspecified Medications: New propranolol 10 - 20 mg (1 - 2 x 10 mg) PO BEDTIME 30 days 60 tabs 1RF R51.9 - Headache, unspecified Refilled galcanezumab-gntere (Emgality Pen) aintenance dose of 120 mg subcu q.month. 120 mg subcut ONCE 30 days 1 mL 6RF oxcarbazepine 600 mg (2 x 300 mg) PO BID 30 days 120 tabs 6RF Discontinued gabapentin Discontinued Reason: Patient no longer taking 400mg q afternoon and 800mg qhs orally bedtime; 30 days 90 caps 4RF Coding Level of Care Code Est Pt Level 4 (81809) Diagnoses New onset headache R51.9 Tarsal tunnel syndrome, bilateral G57.53 Swelling R60.9 Migraine without aura G43.009 Convulsions R56.9 Nocturnal headaches R51.9
[2024-09-02 14:39] VITALS: BP 112/78; PULSE 85; O2SAT 98; BMI 29.8
--- OUTSIDE RECORDS SUMMARY | 2024-09-02 16:37 | XMS_ITS | Continuity of Care Document ---
Author Organization [facility]. If a dditional information is needed, contact Health Information Management at [phone] [address] [place] [address] Phone Care Team Providers Care Taper Machine Name Role Phone Unavailable Unavailable Unavailable Unavailable Unavailable Unavailable Unavailable Unavailable Unavailable Problems D18.02 Onset:05-Feb-2022 Comments:Onset Date: 20220205 K59.00(K59.00) Onset:04-Feb-2022 Comments:Onset Date: 20220204 R42 Onset:01-Feb-2022 Comments:Onset Date: 20220201 G56.00 Onset:31-Jan-2022 Comments:Onset Date: 20220131 D72.829(D72.829) Onset:31-Jan-2022 Comments:Onset Date: 20220131 Seizure Onset:31-Jan-2022 Hector Harmon DO Comments:Onset Date: 20220131 Mental Status Cognitive function finding 31-Jan-2022 Allergies and Adverse Reactions No Known Drug Allergies(Jus rgy) Onset: 31-Jan-2022 Reaction:NKDA Medications meclizine hydrochloride 25 M G Oral Tablet;25 MILLIGRAM* ORAL TID Start:05-Feb-2022 Comments:25 MG PO TID As Needed for DIZZINESS levETIRAcetam 500 MG Oral Ta blet;500 MILLIGRAM* ORAL BID Start:05-Feb-2022 Comments:500 MG PO BID gabapentin 100 MG Oral Capsu le;100 MILLIGRAM* ORAL QHS Start:01-Feb-2022 Comments:100 MG PO QHS 120 ACTUAT Fluticasone propi radha 0.05 MG/ACTUAT Nasal Inhaler;1 SPRAY NASAL DAILY Start:01-Feb-2022 Comments:1 SPRAY NASAL DAILY STRESS FORMULA;1 TABLET ORAL DAILY Start:01-Feb-2022 Comments:1 TAB PO DAILY amitriptyline hydrochloride 25 MG Oral Tablet;25 MILLIGRAM* ORAL DAILY 1800 Start:01-Feb-2022 Comments:25 MG PO DAILY 1800 pantoprazole 20 MG Delayed R elease Oral Tablet [Protonix];20 MILLIGRAM* ORAL BID Start:01-Feb-2022 Comments:20 MG PO BID zolpidem tartrate 5 MG Oral Tablet;5 MILLIGRAM* ORAL BEDTIME PRN Start:01-Feb-2022 Comments:5 MG PO BEDTIME PRN As Needed for INSOMNIA ondansetron 4 MG Oral Tablet ;4 MILLIGRAM* ORAL Q8H PRN Start:01-Feb-2022 Comments:4 MG PO Q8H PRN As Needed for NAUSEA meclizine hydrochloride 25 M G Oral Tablet;25 MILLIGRAM* ORAL TID Start:01-Feb-2022 Comments:25 MG PO TID As Needed for DIZZINESS mirtazapine 15 MG Oral Table t [Remeron];15 MILLIGRAM* ORAL QHS Start:01-Feb-2022 Comments:15 MG PO QHS LORazepam 1 MG Oral Tablet;1 MILLIGRAM* ORAL BID Start:01-Feb-2022 Status:Discontinued Comments:1 MG PO BID As Needed for ANXIETY hydrOXYzine pamoate 25 MG Or al Capsule [Vistaril];25 MILLIGRAM* ORAL QHS Start:01-Feb-2022 Status:Discontinued Comments:25 MG PO QHS Social History Smoking Status Never smoked tobacco Recorded: 31-Jan-2022
== END 2024-09-02 15:39 | disposition home or self-care (01) ==
PROVIDERS: PCP Nurse Practitioner Family; Visit Provider Nurse Practitioner Family
DX: R51.9 Headache, unspecified (principal); G57.53 Tarsal tunnel syndrome, bilateral lower limbs; R60.9 Edema, unspecified; G43.009 Migraine without aura, not intractable, without status migrainosus; R56.9 Unspecified convulsions
CPT/HCPCS: 99214

== ENCOUNTER → 2024-09-02 14:35 | Outpatient (BNVA) | payer MEDICAID, SELFPAY | PROVIDERS: PCP Nurse Practitioner Family; Visit Provider Nurse Practitioner Family | DX: G43.009 Migraine without aura, not intractable, without status migrainosus (principal); G57.53 Tarsal tunnel syndrome, bilateral lower limbs; R60.9 Edema, unspecified; R56.9 Unspecified convulsions | CPT/HCPCS: 99212 ==

== ENCOUNTER 2024-09-14 16:20 | Outpatient (REF) | payer MEDICAID, SELFPAY ==
--- NOTE | ~2024-09-14 | MR_ITS ---
EXAMINATION: MR BRAIN WITHOUT AND WITH CONTRAST CLINICAL INFORMATION: Headache. COMPARISON: None available. TECHNIQUE: Multiplanar, multisequence MRI of the brain was obtained before and after the intravenous administration of 7.5 mL Gadavist. FINDINGS: There is no restricted diffusion seen to suspect any acute ischemic changes. There is a focal magnetic susceptibility artifact left medial cerebellar hemisphere adjacent to midline vermis. On T1 same area there is central bright signal with peripheral area of low signal with no enhancement seen on the postcontrast T1 exam. Findings are suspicious for a small cavernous hemangioma. It measures approximately 0.6 cm. There is otherwise normal symmetry of bilateral cerebral hemispheres. Visualized fourth, third and the lateral ventricles are normal. There is normal flow-void signal seen in major cerebral vasculature. Postcontrast normal enhancement seen in the cerebral venous sinuses. Paranasal sinuses and mastoid air cells are well-aerated. There is mild mucoperiosteal thickening bilateral ethmoid and right sphenoid sinuses. The calvarial bone marrow signal are normal. Bilateral optic globe, optic nerve and intraorbital soft tissues are normal. MR/MR head/brain wo/w con IMPRESSION: No acute intracranial process seen. 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 Electronically signed by: Addison Valentine MD 09/15/2024 08:30 AM EST
[2024-09-14] MEDS: gadobutroL 7.5 ML VIAL IVPUSH (17:17)
== END 2024-09-14 16:21 | disposition home or self-care (01) ==
LOC: HO.MRI 16:20
PROVIDERS: PCP Nurse Practitioner Family; Visit Provider Nurse Practitioner Family
DX: R51.9 Headache, unspecified (principal)
CPT/HCPCS: 70553; A9585

== ENCOUNTER → 2024-09-14 16:20 | Outpatient (BNV) | payer MEDICAID, SELFPAY | PROVIDERS: PCP Nurse Practitioner Family; Visit Provider Radiology Diagnostic Radiology | DX: D32.0 Benign neoplasm of cerebral meninges (principal) | CPT/HCPCS: 70553 ==

== ENCOUNTER 2024-11-29 17:24 | Emergency (ER) | payer MEDICAID, SELFPAY ==
[2024-11-29 17:34] VITALS: BP 140/81; PULSE 115; RESP 20; TEMP 36.2; O2SAT 98; BMI 27.2
--- NOTE | 2024-11-29 17:45 | ED_ITS ---
HPI - Neuro Symptoms/Deficit General Chief Complaint: Neuro Symptoms/Deficit Stated Complaint: ?seizures/mult comp Time Seen by Provider: 11/29/24 17:45 Source: patient Mode of arrival: ambulatory Limitations: no limitations History of Present Illness ED Provider: HPI Narrative: Patient's anxiety and non epileptic convulsions disorder been followed by neurologist and had recent MRI which was negative for any acute taking Trileptal for depression and for mood disorder at recent EEG done last year which was negative also had MRI in 10/07 which was also negative for acute comes here for similar episode of trembling of the hands for last 3 days says that she lost consciousness but she remembers everything no incontinence no tongue bite last episode was 03:00 last night Related Data Home Medications ?Medication ?Instructions ?Recorded ?Confirmed albuterol sulfate 90 mcg/actuation 1 inh inhalation QID 08/19/21 09/02/24 aerosol inhaler cholecalciferol (vitamin D3) 25 25 mcg PO DAILY 08/19/21 09/02/24 mcg (1,000 unit) capsule ibuprofen 800 mg tablet 800 mg PO Q8H 08/19/21 09/02/24 ondansetron HCl 4 mg tablet 4 mg PO Q8H 08/19/21 09/02/24 fluticasone propionate 50 1 spray intranasal DAILY 02/10/22 09/02/24 mcg/actuation nasal spray,suspension mirtazapine 15 mg tablet 15 mg PO BEDTIME 02/10/22 09/02/24 multivitamin 1 tab PO DAILY 02/10/22 09/02/24 evejuyohfgok-scrijhgm-lamf 1 tab PO DAILY 02/10/22 09/02/24 fumarate 7.5 mg-folic acid 400 mcg tablet pantoprazole 20 mg tablet,delayed 20 mg PO BID 02/10/22 09/02/24 release Previous Rx's ?Medication ?Instructions ?Recorded clonazepam 0.5 mg tablet 0.25 - 0.5 mg (0.5 - 1 x 0.5 mg) 04/07/22 PO BEDTIME PRN sleep 30 days #30 tabs omeprazole 20 mg capsule,delayed 20 mg PO BID 30 days #60 caps 04/24/22 release meclizine 25 mg tablet 25 mg PO TID PRN dizziness 14 days 12/11/22 #42 tabs lorazepam 0.5 mg tablet 0.25 - 0.5 mg (0.5 - 1 x 0.5 mg) 01/02/23 PO DAILY PRN anxiety/convulsion 14 days #5 tabs diphenhydramine HCl 25 mg tablet 25 - 50 mg (1 - 2 x 25 mg) PO TID 10/22/23 (Benadryl Allergy) PRN migraine headache 30 days #60 tabs oxcarbazepine 300 mg tablet 600 mg (2 x 300 mg) PO BID 30 days 09/07/24 #120 tabs propranolol 10 mg tablet 10 - 20 mg (1 - 2 x 10 mg) PO 09/07/24 BEDTIME 30 days #60 tabs galcanezumab-gnlm 120 mg/mL 120 mg subcut ONCE 30 days #1 mL 09/30/24 subcutaneous pen injector (Emgality Pen) rizatriptan 10 mg tablet 5 - 10 mg (0.5 - 1 x 10 mg) PO Q2H 10/01/24 PRN migraine headache 21 days #12 tabs acetazolamide 125 mg tablet 125 - 250 mg (1 - 2 x 125 mg) PO 10/16/24 Q6-8H PRN Air travel 7 days #30 tabs amitriptyline 50 mg tablet 50 mg PO BEDTIME 30 days #30 tabs 11/09/24 Allergies Allergy/AdvReac Type Severity Reaction Status Date / Time No Known Allergies Allergy Verified 11/29/24 17:37 Review of Systems Review of Systems: Yes all other systems are reviewed and are negative PMFSH Past Medical History Medical History No known health problems Social History Social History Alcohol intake: never Patient Tobacco Use Status: Never used Tobacco Do you have a plan to hurt others: No Plan Physical Exam Vital Signs: Vital Signs: Last Vital Signs Temp 97.2 F 11/29/24 17:34 Pulse 115 H 11/29/24 17:34 Resp 20 11/29/24 17:34 BP 140/81 H 11/29/24 17:34 Pulse Ox 98 11/29/24 17:34 O2 Del Method Room Air 11/29/24 17:34 BMI result Body Mass Index 27.2 Appearance: Alert. Oriented X3. No acute distress. Eyes: PERRLA, No Nystagmus ENT: Pharynx normal. Oral Mucosa moist Neck: Normal inspection. Neck supple. CVS: Normal heart rate and rhythm. Pulses normal. Respiratory: No respiratory distress. Equal air entry bilateral, no wheezing/rales/rhonchi Abdomen: Soft and nontender. Bowel sounds are present, no mass palpable, no CVA tenderness Skin: Skin warm and dry. Normal skin color. Normal skin turgor. Extremities: No lower extremity edema. No calf tenderness Neuro: Oriented X 3. No motor deficit. No sensory deficit.No cerebellar signs , cranial nerves II-XII intact Medical Decision Making Medical Decision Making MDM Narrative: Patient with anxiety and mood disorder functional epilepsy no post conversion somnolence no tongue bite patient with multiple complaints likely anxiety does have Klonopin lorazepam and Trileptal advised to continue medication and follow up with her neurologist Discharge Plan Discharge Clinical Impression: Convulsion, non-epileptic, Anxiety Patient Disposition: Home, Self-Care Instructions: Nonepileptic Seizures (ED), Anxiety (ED) Additional Instructions: Your symptoms are not from epilepsy likely functional non neurological You already taking lorazepam and clonazepam Continue medication and follow up with your PCP and neurologist Prescriptions: No Action clonazepam 0.5 mg tablet 0.25 - 0.5 mg PO BEDTIME PRN (Reason: sleep) 30 Days Qty: 30 0RF Rx Instructions: administer 30 minutes before bedtime (do not take with Ambien or Lorazepam) omeprazole 20 mg capsule,delayed release(DR/EC) 20 mg PO BID 30 Days Qty: 60 1RF meclizine 25 mg tablet 25 mg PO TID PRN (Reason: dizziness) 14 Days Qty: 42 1RF lorazepam 0.5 mg tablet 0.25 - 0.5 mg PO DAILY PRN (Reason: anxiety/convulsion) 14 Days Qty: 5 1RF Emgality Pen 120 mg/mL pen injector 120 mg subcut ONCE 30 Days Qty: 1 6RF Rx Instructions: aintenance dose of 120 mg subcu q.month. rizatriptan 10 mg tablet 5 - 10 mg PO Q2H PRN (Reason: migraine headache) 21 Days Qty: 12 3RF Rx Instructions: max 2 tabs per day or 4 tabs per week acetazolamide 125 mg tablet 125 - 250 mg PO Q6-8H MDD 6 tabs PRN (Reason: Air travel) 7 Days Qty: 30 1RF Rx Instructions: Start up to 24 hours before air travel. amitriptyline 50 mg tablet 50 mg PO BEDTIME 30 Days Qty: 30 4RF pantoprazole 20 mg tablet,delayed release (DR/EC) 20 mg PO BID fluticasone propionate 50 mcg/actuation spray,suspension 1 spray intranasal DAILY mirtazapine 15 mg tablet 15 mg PO BEDTIME multivitamin Tablet 1 tab PO DAILY wxdenjsm-xtq-ecor fum-folic ac 7.5 mg iron-400 mcg tablet 1 tab PO DAILY albuterol sulfate 90 mcg/actuation HFA aerosol inhaler 1 inh inhalation QID ibuprofen 800 mg tablet 800 mg PO Q8H cholecalciferol (vitamin D3) 25 mcg (1,000 unit) capsule 25 mcg PO DAILY ondansetron HCl 4 mg tablet 4 mg PO Q8H diphenhydramine HCl [Benadryl Allergy] 25 mg tablet 25 - 50 mg PO TID PRN (Reason: migraine headache) 30 Days Qty: 60 1RF propranolol 10 mg tablet 10 - 20 mg PO BEDTIME 30 Days Qty: 60 1RF oxcarbazepine 300 mg tablet 600 mg PO BID 30 Days Qty: 120 6RF Print Language: Greenlandic
--- NOTE | 2024-11-29 18:01 | PC.NURSE ---
pt comes to ED with reports of a few seizures over the past three days. she says she has been left feeling uncoordinated, off balance and not herself. she is speaking full sentences but is somewhat slow to answer questions. she appears a little disoriented. reports dizziness. provider and anesthesiologist assistant certified at bedside.
--- NOTE | 2024-11-29 18:12 | PC.NURSE ---
pt walking with steady gait. speaking in full and complete sentences.
--- NOTE | 2024-11-29 18:48 | PC.NURSE ---
upon discharge pt became tearful and upset. this RN talked to pt in the waiting room with house superintendent. She states she felt dismissed and that MD did not listen to her. this RN explained to pt that at this time she has been cleared for discharge. pt OK with this outcome but upset about feeling dismissed by MD. pt speaking in full, compete sentences, she walks steadily and can write and sign her name. no tremors noted, no seizure like activity. refused DC vitals
[2024-11-29 18:55] VITALS: BP 140/81; PULSE 115; RESP 20; TEMP 36.2; O2SAT 98
== END 2024-11-29 18:56 | disposition home or self-care (01) ==
PROVIDERS: Emergency Provider Internal Medicine; PCP Nurse Practitioner Family
DX: R56.9 Unspecified convulsions (principal); F41.9 Anxiety disorder, unspecified; R25.1 Tremor, unspecified
CPT/HCPCS: 99282; 99283

== ENCOUNTER 2024-12-15 11:29 | Outpatient (AMB) | payer MEDICAID, SELFPAY ==
--- NOTE | 2024-12-15 11:28 | MHC.OFFVIS ---
Intake Visit Reasons: Follow up Non Destructive Evaluation Manager Required: Yes Non Destructive Evaluation Manager Services: Non Destructive Evaluation Manager Present Non Destructive Evaluation Manager Name: Erendira Jesus Allergies No Known Allergies Allergy (Verified 12/15/24 11:30) Medication List - Last Reconciled 12/15/24 by AMIRAH Preciado acetazolamide 125 - 250 mg (1 - 2 x 125 mg) PO Q6-8H PRN 7 days MDD 6 tabs albuterol sulfate 90 mcg/actuation 1 inh inhalation QID amitriptyline 50 mg PO BEDTIME 30 days cholecalciferol (vitamin D3) 25 mcg PO DAILY clonazepam 0.25 - 0.5 mg (0.5 - 1 x 0.5 mg) PO BEDTIME PRN 30 days diphenhydramine HCl (Benadryl Allergy) 25 - 50 mg (1 - 2 x 25 mg) PO TID PRN 30 days fluticasone propionate 50 mcg/actuation 1 spray intranasal DAILY galcanezumab-gnlm (Emgality Pen) 120 mg subcut ONCE 30 days ibuprofen 800 mg PO Q8H lorazepam 0.25 - 0.5 mg (0.5 - 1 x 0.5 mg) PO DAILY PRN 14 days meclizine 25 mg PO TID PRN 14 days mirtazapine 15 mg PO BEDTIME climykqi-gui-bcky fum-folic ac 7.5 mg iron-400 mcg 1 tab PO DAILY multivitamin 1 tab PO DAILY omeprazole 20 mg PO BID 30 days ondansetron HCl 4 mg PO Q8H oxcarbazepine 600 mg (2 x 300 mg) PO BID 30 days pantoprazole 20 mg PO BID propranolol 10 - 20 mg (1 - 2 x 10 mg) PO BEDTIME 30 days rizatriptan 5 - 10 mg (0.5 - 1 x 10 mg) PO Q2H PRN 21 days HPI Comments Details: 39-year-old female presents for urgent tele video visit via [facility], for new onset involuntary facial movements and bilateral hand tremors. Patient reports a couple of weeks ago, she started having involuntary facial movements and BUE rest and action tremor. Initially, this was mild and she did not even notice it just her family noted. However, the involuntary movements and tremor persisted and steadily became obvious in more bothersome to patient. She also notes at that time, she is having increased headaches, episodes of speaking slowly and word swapping, thigh rash, hands and legs paring purplish. Then, she had an approximately 1 minute long typical convulsive episode and elevated BP- up to 140/80s- though she notes she is normally low normotensive or hypotensive. On 11/29/24, patient states she went to [facility] to have the new onset involuntary movements and tremors evaluated, however per ER note, she was evaluated further convulsive episode, consider to be typical for her known nonepileptic convulsive disorder, and was discharged home on her usual home medication regimen and advised to follow-up with Neurology here. Since, patient has continued to have these constant involuntary lip, buccal, jaw movements, as well as BUE rest and action tremor. She states these are constant, however varying intensity. She states overall she also feels that her lower legs feel more numb than usual. She is having dizziness and lightheadedness, bilateral tinnitus. She continues to have frequent migraine, note she is overdue for her Emgality- states pharmacy need something from us. She denies any TMJ tightness or neck symptoms. She denies any recent changes in her medications. Denies taking any OTC supplements. She denies history of neuroleptic use, metoclopramide use, or psychiatric hospitalization. She denies recent dental work. [facility] Medical History No known health problems Social History Alcohol intake: never Patient Tobacco Use Status: Never used Tobacco Physical Exam Const General: cooperative and no acute distress Orientation/consciousness: patient oriented x3 Resp Effort & Inspection: normal respiratory effort and able to speak in complete sentences Neuro Other: Mild repetitive dyskinetic lip, vehicle, jaw involuntary movements. Mild BUE postural tremor Clear speech without noticeable word swapping. General: patient oriented x3 Cognition (Neuro): normal cognition Psych Appearance: grossly normal Mental Status: mental status grossly normal Affect: normal affect Attitude: cooperative Telehealth Telehealth [facility] Location of provider rendering services: practice address Location of patient: address on file Patient Identification confirmed using: Name, : Yes Telehealth method: video Patient verbally consented to treatment: Yes Patient verbally consented to billing insurance company: Yes Patient informed of any privacy concerns related to visit: Yes Minutes spent on Phone/Video with Pt.: 40 Assessment & Plan Assessment & Plan (1) Abnormal involuntary movements: Comment: Facial Code(s): R25.9 - Unspecified abnormal involuntary movements Category: Medical (2) Tremor: Comment: BUE action and rest Code(s): R25.1 - Tremor, unspecified Category: Medical (3) Tarsal tunnel syndrome, bilateral: Code(s): G57.53 - Tarsal tunnel syndrome, bilateral lower limbs Category: Medical (4) Migraine without aura: Code(s): G43.009 - Migraine without aura, not intractable, without status migrainosus Category: Medical (5) Convulsions: Comment: January 2022: on an airplane to [place]. plane landed in [place]. MRI showed 9mm cerebellar hemangioma. Evaluated by [facility] Neurology- Video EEG results c/w Non-Epileptic Convulsions Code(s): R56.9 - Unspecified convulsions Category: Medical (6) Nocturnal headaches: Code(s): R51.9 - Headache, unspecified Category: Medical Plan For new onset facial involuntary movements and BUE tremor, which are distinct from her baseline nonepileptic compulsions symptoms: Check EEG Check labs for common etiologies Reduce amitriptyline from 50 mg q.h.s. to 40 mg q.h.s.- as a rarely antidepressants have been associated with tardive dyskinesia symptoms. Patient denies any history of neuroleptic or dopamine blocking medication use. If workup unremarkable, we will initiate referral to [facility] functional neurological disorder clinic For recent new onset nocturnal headache: Request status/results of HST to assess for sleep apnea Reviewed 09/14/2024 MRI brain w/wo- stable small cavernous meningioma in the left medial cerebellar hemisphere, otherwise unremarkable exam. Propranolol 10-20 mg q.h.s.- advised to notify us if she develops any signs of orthostatic lightheadedness, worsening dizziness. If patient tolerates this, we may consider low-dose propranolol ER. Had consider trial of indomethacin q.h.s., however patient is wary to use NSAIDs due to the presence of the cavernous hemangioma. Also had discussed trying caffeine q.h.s., however patient was worried this would further interfere with her sleep quality. For convulsions: [facility]- VEEG results c/w non-epileptic convulsions. Pt is f/b therapist. Could consider referral to a functional neurological disorder clinic. Continue Trileptal 600mg bid- for mood and headaches as well. Lorazepam 0.25-0.5mg at onset of convulsion s/s. ? For BLE tarsal tunnel syndrome a/w BLE pain: Review of [facility] shows patient has not filled Gabapentin in multiple months.. BLE EMG/NCS-stable bilateral moderate tibial neuropathy. Future considerations: referring back to [facility] or [facility] orthopedics appt for 2nd ortho opinion-previously requested.. For BUE paresthesias, swelling, hand weakness, R > L: BUE EMG/NCS- normal. Hold previous vascular consult for now pending review of above. ? For migraine headache: Resume Emgality as patient had greater than 50% reduction in monthly migraine days with use- we will check with pharmacy to determine why this is not being filled. Patient completed Emgality 240 mg loading dose on 11/11/2024. Resume maintenance dose of Emgality 120mg sc q month for migraine prevention. Continue Amitriptyline 50mg qhs- consider decreasing if Emgality is again effective. Continue Sumatriptan 100mg prn, may adjunct w/ Tylenol. Patient has been provided a prn order for Acetazolamide to prevent air travel induced migraine attack. Acetazolamide 125-250 mg every 6-8 hours starting the day before air travel through up to the day following air travel. Contraindications: Aimovig d/t pt has leg cramps. Beta-blockers d/t hypotension/convulsions/syncope. NSAIDs/Indomethacin- per BM advice. Note however that cavernoma itself is not an absolute contraindication for NSAIDs. ?? For dizziness: Zofran prn. ? Follow-up as scheduled Orders: Orders Erythrocyte Sedimentation Rate Today D64.9 - Anemia, unspecified, R00.0 - Tachycardia, unspecified, R20.2 - Paresthesia of skin, R25.1 - Tremor, unspecified, R25.9 - Unspecified abnormal involuntary movements, R53.83 - Other fatigue TSH reflex Free T4 Today D64.9 - Anemia, unspecified, R00.0 - Tachycardia, unspecified, R20.2 - Paresthesia of skin, R25.1 - Tremor, unspecified, R25.9 - Unspecified abnormal involuntary movements, R53.83 - Other fatigue Vitamin D 25-OH (D2 and D3) Today D64.9 - Anemia, unspecified, R00.0 - Tachycardia, unspecified, R20.2 - Paresthesia of skin, R25.1 - Tremor, unspecified, R25.9 - Unspecified abnormal involuntary movements, R53.83 - Other fatigue Lyme IgG/IgM w/reflex to WB Today R00.0 - Tachycardia, unspecified, R20.2 - Paresthesia of skin, R25.1 - Tremor, unspecified, R25.9 - Unspecified abnormal involuntary movements, R53.83 - Other fatigue Complete Blood Count Auto Diff Today D64.9 - Anemia, unspecified, R00.0 - Tachycardia, unspecified, R20.2 - Paresthesia of skin, R25.1 - Tremor, unspecified, R25.9 - Unspecified abnormal involuntary movements, R53.83 - Other fatigue Ceruloplasmin Today D64.9 - Anemia, unspecified, R00.0 - Tachycardia, unspecified, R20.2 - Paresthesia of skin, R25.1 - Tremor, unspecified, R25.9 - Unspecified abnormal involuntary movements, R53.83 - Other fatigue Ferritin Today D64.9 - Anemia, unspecified, R00.0 - Tachycardia, unspecified, R20.2 - Paresthesia of skin, R25.1 - Tremor, unspecified, R25.9 - Unspecified abnormal involuntary movements, R53.83 - Other fatigue EEG electroencephalogram Today R25.1 - Tremor, unspecified, R25.9 - Unspecified abnormal involuntary movements, R56.9 - Unspecified convulsions EDILBERTO Reflex Titer and Pattern Today D64.9 - Anemia, unspecified, R00.0 - Tachycardia, unspecified, R20.2 - Paresthesia of skin, R25.1 - Tremor, unspecified, R25.9 - Unspecified abnormal involuntary movements, R53.83 - Other fatigue Rheumatoid Factor Today D64.9 - Anemia, unspecified, R00.0 - Tachycardia, unspecified, R20.2 - Paresthesia of skin, R25.1 - Tremor, unspecified, R25.9 - Unspecified abnormal involuntary movements, R53.83 - Other fatigue Vitamin B12 and Folate Today D64.9 - Anemia, unspecified, R00.0 - Tachycardia, unspecified, R20.2 - Paresthesia of skin, R25.1 - Tremor, unspecified, R25.9 - Unspecified abnormal involuntary movements, R53.83 - Other fatigue Comprehensive Met. Panel Today D64.9 - Anemia, unspecified, R00.0 - Tachycardia, unspecified, R20.2 - Paresthesia of skin, R25.1 - Tremor, unspecified, R25.9 - Unspecified abnormal involuntary movements, R53.83 - Other fatigue C Reactive Protein Today D64.9 - Anemia, unspecified, R00.0 - Tachycardia, unspecified, R20.2 - Paresthesia of skin, R25.1 - Tremor, unspecified, R25.9 - Unspecified abnormal involuntary movements, R53.83 - Other fatigue IRON PROFILE Today D64.9 - Anemia, unspecified, R00.0 - Tachycardia, unspecified, R20.2 - Paresthesia of skin, R25.1 - Tremor, unspecified, R25.9 - Unspecified abnormal involuntary movements, R53.83 - Other fatigue Vitamin B6 Today D64.9 - Anemia, unspecified, R20.2 - Paresthesia of skin, R25.1 - Tremor, unspecified, R25.9 - Unspecified abnormal involuntary movements Medications: New amitriptyline 40 mg (4 x 10 mg) PO BEDTIME 30 days 120 tabs 1RF Changed From galcanezumab-gnlm (Emgality Pen) aintenance dose of 120 mg subcu q.month. 120 mg subcut ONCE 30 days 1 mL 6RF To galcanezumab-gnlm (Emgality Pen) maintenance dose of 120 mg subcu q.month. 120 mg subcut ONCE 30 days 1 mL 6RF Discontinued amitriptyline Discontinued Reason: Doctor's Order 50 mg PO BEDTIME 30 days 30 tabs 4RF Coding Level of Care Code Tele Est Pt Level 4 (01344) Complex EM visit Add On G2211 Diagnoses Abnormal involuntary movements R25.9 Tremor R25.1 Tarsal tunnel syndrome, bilateral G57.53 Migraine without aura G43.009 Convulsions R56.9 Nocturnal headaches R51.9
--- OUTSIDE RECORDS SUMMARY | 2024-12-15 13:16 | XMS_ITS | Encounter Summary ---
Author Organization [facility] Address [address] [place] [address] Care Team Providers Care Health Information Coder Name Role Phone Herve Royal Primary Care Prov ider Encounter Details Date Type Department Care Team ([facility] st Contact Info) Description 11/10/2024 Results Follow-Up [facility] [address] [place] [phone] Herve Royal FNP [address] [place] [address] Social History Tobacco Use Types Packs/Day Years Used Date Smoking Tobacco: Never Smokeless Tobacco: Never Alcohol Use Standard Drinks/Week Comments No 0 (1 standard drink = 0.6 oz pur e alcohol) Social Connections Answer Date Recorded Connectedness 1 09/16/2024 Financial Resource Strain Answer Date R ecorded Financial Resource Strain 1 2024 Stress Answer Date Recorded Stress 1 09/16/2024 Physical Activity Answer Date Recorded Physical Activity 0 04/07/2019 Food Insecurity Answer Date Recorded Food 1 09/16/2024 Transportation Needs Answer Date Record ed Transportation 1 09/16/2024 Housing Stability Answer Date Recorded Housing 1 09/16/2024 Safety and Environment Answer Date Say rded Safety 0 08/02/2023 Utilities Answer Date Recorded Utilities 1 09/16/2024 Employment Answer Date Recorded Employment 0 04/07/2019 Comments No Sex and Gender Information Value Date Recorded Sex Assigned at Female 06/19/2017 1:40 PM PST Legal Sex Female 8:08 AM PDT Gender Identity Female 06/19/2017 1:40 PM PST Sexual Orientation Straight 06/19/2017 1: 40 PM PST Occupation Industry Job Start Date Job End Date unemployed Not on file Not on file Not on file documented as of this encounter Miscellaneous Notes * Result Encounter Note - AMIRAH Cloud - 11/10/2024 5:[address] does not show any hernia, continue to monitor for now documented in this encounter Plan of Treatment Upcoming Encounters Date Type Department Care Team (Late st Contact Info) Description 12/30/2024 1:20 PM EDT Office Visit [facility] [address] [place] [address] Herve Royal FNP [address] [place] [address] documented as of this encounter Visit Diagnoses Not on filedocumented in this encounter Additional Health Concerns Assessment Noted Time PHQ-9 Depression Total Score: 0 09/16/19 25 4:07 PM PST documented as of this encounter Care Teams Health Information Coder Relationship Specialty Start Date End Date Herve Royal FNP [address] [place] [phone] PCP - General Family Medicine, TENSION MACHINE OPERATOR 06/02/21 documented as of this encounter
--- OUTSIDE RECORDS SUMMARY | 2024-12-15 13:16 | XMS_ITS | Continuity of Care Document ---
Author Organization [facility] Address [address] [place] [address] [address] [place] [phone] Phone Care Team Providers Care Winding Department Supervisor Name Role Phone Lucho LE, GERMANIA, Sedrick [...] Mins- [place] & [place] [facility], [address] [place] [address] [address], [place], [id number], [place] tel:[phone] [facility] Venous insufficiency (chronic) (peripheral)R estless legs syndromeCramp and spasmLocalize d edema Lucho LE, DEBI SOLO. [address] [facility] [address], [place], [place], [id number] , [place]. tel:[phone] Referring Provider: Bi Royal SUPERVISOR TILE AND MOTTLE, [facility] [address] [place], [address]. tel:[phone] [facility], [address] [place] [address] [address], [id number], [place] tel:[phone] [facility] [place] [facility] Chronic venous hypertension (idiopathic) with other complications of bilateral lower extremity Lucho LE, RVT, RPVI Sedrick. [address] [facility], [address], [place], [place], [id number] , . [phone] Referring Provider: Bi Royal SUPERVISOR TILE AND MOTTLE, [facility] [address] [facility], [place], [address]. tel:[phone] Family History Family Member Type Diagnosis Age At Onset No Information Payers Payer name Insurance type Covered alliance party ID Authoriza tiphilly(s) Medical Assistance [facility] [id number] Social History Type Description Quantity Date Captured [...] (chronic) (peripheral) Assessments Type Assessment Date assessment Restless legs syndrome assessment Venous insufficiency (chronic) ( peripheral) assessment Cramp and spasm assessment Localized edema Patient Care Teams Name Effective Dates (start - stop) Status Members No Information
--- OUTSIDE RECORDS SUMMARY | 2024-12-15 13:16 | XMS_ITS | Clinical Summary ---
Author Organization [facility] Address [address] [place] [address] Care Team Providers Care Set Up [employer]ic [employer] Name Role Phone Herve Royal [facility] Primary Care Prov ider Source Comments PLEASE NOTE, if this patient is a minor, it may be UNLAWFUL to discuss sensitive information that is contained in these records (such as FAMILY PLANNING, MENTAL HEALTH or SUBSTANCE ABUSE) with the minor patient's parent or other person without the patient's specific authorization.[facility] Allergies Active Allergy Reactions Criticality Noted Date Comments Nsaids (Non-Steroidal Anti-Inflammatory Drug) 08/02/2023 Per neuro in [place] ([facility])- pt has cavernoma and is at risk for brain bleed Medications lowmnyre-lfy-zwg n fum-folic ac 7.5 mg iron-400 mcg tab REGINO 1 TABLETA POR LA BOCA CADA ALEXYS 022 Active multivitamin tabletIndication s:Appetite absent Take 1 Tablet by mouth once daily 90 Tablet 1 022 Active hydrOXYzine pamoate (VISTARIL) 25 mg capsule Take 1 Capsule by mouth nightly at bedtime as needed for anxiety or sleep 30 Capsule 1 022 Active hydrocortisone 1 % creamIndications :Dry scalp Apply topically 2 (two) times daily 30 g 1 022 Active diclofenac sodium (VOLTAREN) 1 % gelIndications:P ain of right heel Apply 2 g topically 2 (two) times daily 100 g 2 022 Active MISCELLANEOUS MEDICAL SUPPLY MISCIndications: Tarsal tunnel syndrome, unspecified laterality Foot inserts x99 years 5'4 , 172 lbs 2 Each 1 023 Active diphenhydrAMINE (BENADRYL) 50 mg capsuleIndicatio ns:Allergic conjunctivitis of both eyes and rhinitis Take 1 Capsule by mouth nightly at bedtime as needed for allergies 90 Capsule 023 Active blood pressure test kit-large Monitor bp daily 1 Kit 023 Active ketoconazole (NIZORAL) 2 % shampooIndicatio ns:Dry scalp Apply topically once daily as needed for itching 120 mL 1 023 Active famotidine (PEPCID) 20 mg tablet REGINO 1 TABLETA POR LA BOCA DOS VECES AL ALEXYS 180 Tablet 024 Active SUMAtriptan succinate (IMITREX) 100 mg tablet 100 mg Take 1 tab at onset of headache, repeat in two hours if headache persists- max 2 per day 024 Active artificial saliva, yerbas-lyt, spraIndications: Snoring,Dry mouth 1 [place] by mucous membrane route 3 to 4 (three to four) times daily as needed (dry mouth) 236 mL 1 024 Active pantoprazole (PROTONIX) 20 mg EC tablet TAKE 1 TABLET BY MOUTH TWICE DAILY BEFORE MEALS 90 Tablet 1 024 Active ciclopirox (PENLAC) 8 % solutionIndicati ons:Deformity of toenail Apply topically nightly at bedtime 6.6 mL 024 Active loratadine (CLARITIN) 10 mg tabletIndication s:Allergic conjunctivitis of both eyes and rhinitis Take 1 Tablet by mouth once daily as needed for allergies 90 Tablet 024 Active azelastine (OPTIVAR) 0.05 % ophthalmic solution Place 1 Drop into both eyes 2 (two) times daily 18 mL 024 Active MISCELLANEOUS MEDICAL SUPPLY MISCIndications: Leg swelling Knee high compression stockings 15-20mm Hg to be used daily x 99 years dispense 2 pairs 4 Each 1 024 Active FLUoxetine (PROZAC) 10 mg capsuleIndicatio ns:Anxiety and depression Take 1 Capsule by mouth once daily 90 Capsule 024 Active EMGALITY PEN 120 mg/mL pnij INJECT 1 ML SUBCUTANEOUSLY 2 TIMES IN ALTERNATE SITES ONCE FOR 30 DAYS. TO BE FOLLOWED BY MAINTENANCE DOSE OF 1ML SUBCUTANEOUSLY EVERY MONTH 024 Active droNABinol (MARINOL) 2.5 mg capsuleIndicatio ns:Psychosomatic seizure,Appetite absent Take 1 Capsule by mouth 2 (two) times daily before a meal 60 Capsule 5 024 Active gabapentin (NEURONTIN) 100 mg capsuleIndicatio ns:Psychosomatic seizure TAKE 1 TO 3 CAPSULES BY MOUTH EVERY NIGHT AT BEDTIME 90 Capsule 2 024 Active fluticasone (FLONASE) 50 mcg/actuation nasal sprayIndications :Cough, unspecified type,Nasal congestion Place 1 [place] in both nostrils once daily for 14 days shake liquid 16 g 024 Active sodium chloride (OCEAN) 0.65 % nasal sprayIndications :Nasal congestion Place 1 [place] into the nostril(s) as needed for congestion 44 mL 024 Active acetaminophen (TYLENOL) 500 mg tabletIndication s:Sore throat,Body aches Take 1 Tablet by mouth every 6 (six) hours as needed for pain 60 Tablet 3 024 Active dextromethorphan -guaifenesin 10-200 mg capIndications:C ough, unspecified type,Nasal congestion,Chest congestion Take 1-2 Tablets by mouth daily. (maximum: 4 tablets/24 hours) 30 Capsule 024 Active clonazePAM (KLONOPIN) 0.5 mg tabletIndication s:Psychosomatic seizure Take one tab in the mornings 30 Tablet 3 025 Active amitriptyline (ELAVIL) 50 mg tablet Take 1 Tablet by mouth nightly at bedtime 90 Tablet 1 025 Active OXcarbazepine (TRILEPTAL) 300 mg tablet Take 2 Tablets by mouth 2 (two) times daily 360 Tablet 025 Active ondansetron HCL (ZOFRAN) 8 mg tablet Take 1 Tablet by mouth every 8 (eight) hours as needed for nausea 60 Tablet 1 025 Active LORazepam (ATIVAN) 0.5 mg tablet TAKE HALF TO 1 TABLET DAILY NEEDED FOR ANXIETY/CONVULSI ON 30 Tablet 3 025 Active tirzepatide, weight loss, (ZEPBOUND) 2.5 mg/0.5 mL pnij Inject 2.5 mg into the skin once a week 2 mL 025 Active tirzepatide, weight loss, (ZEPBOUND) 5 mg/0.5 mL pnij Inject 5 mg into the skin once a week 2 mL 2 025 Active phentermine 37.5 mg capsule Take 1 Capsule by mouth every morning 30 Capsule 2 025 Active meclizine (ANTIVERT) 25 mg tabletIndication s:Psychosomatic seizure TAKE ONE TABLET BY MOUTH THREE TIMES DAILY NEEDED DIZZINESS 30 Tablet 2 025 Active phentermine 37.5 mg capsule Take 1 Capsule by mouth every morning 30 Capsule 2 025 2024 Discontinued(R eorder (E-Cancel Not Sent)) meclizine (ANTIVERT) 25 mg tabletIndication s:Psychosomatic seizure TAKE ONE TABLET BY MOUTH THREE TIMES DAILY NEEDED DIZZINESS 30 Tablet 2 025 2024 Discontinued Active Problems Problem Noted Date Diagnosed Date Venous insufficiency 11/25/2024 Overview (11/25/2024): 11/21/2024 [facility] - Dx: Venous insufficiency - Vascular studies: Scan negative for DVT to bilateral legs; minimally positive for superficial venous reflux in bilateral legs; negative for Deep venous reflux in bilateral legs - conservative management strategies recommended including compression stockings 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 with body mass index (BMI) of 30.0 to 30.9 in adult 03/25/2024 Cerebral cavernoma ([facility]) 08/02/2023 Panic disorder 06/12/2023 Moderate episode of recurren t major depressive disorder ([facility]) 06/12/2023 Carpal tunnel syndrome 04/25/2022 Tarsal tunnel syndrome 01/19/2022 Overview (01/19/2022): January 2022: patient reports findings from EMG ordered by neurologist Psychosomatic seizure 10/11/2021 Chronic gastritis without bleeding 10/11/2021 Polyarthralgia 10/11/2021 Chronic fatigue 10/11/2021 Pain in pelvis 09/13/2020 Overview (09/13/2020): Rajni 04/24/2020 CT of pelvis Impression: Improved inflammatory change affecting inferior left paramedian aspect of the left buttock in keeping with treated perianal abscess. No drainable collection defined. Irregular periods/menstrual cycles 08/16/2020 Abscess, gluteal, right 04/12/2020 Hoarseness or changing voice 03/10/2020 Muscle ache of extremity 05/27/2019 Hypotension 05/15/2019 Overview (05/15/2019): Saw [facility] cardio on 08/02/17 - recommended increase water and salt. Wear compression stockings. Will check labs, will check AM cortisol for adrenal insufficency,. Believes stress is cause. F/U 2 months. Somatic complaints, multiple 2018 Umbilical hernia without obstruction and without gangrene 2018 Encounters Date Type Department Care Team Description 12/03/2024 Interim Notes [address] [phone] Cary Salas Community Health Worker 12/02/2024 Interim Notes [address] [phone] Jennifer Clement RN 12/02/2024 Interim Notes [address] [phone] Yeimy Cruz 11/15/2024 10:00 AM EDT Office Visit [address] [address] Carmen Landaverde PA-C Raynaud's disease without gangrene (Primary Dx); Left elbow pain; Right elbow pain 11/12/2024 3:40 PM EDT Office Visit [address] [address] Shell Pop, SUAD Immunization due (Primary Dx) 11/10/2024 Results Follow-Up [address] [phone] Herve Royal FNP from Last 3 Months Immunizations Immunization Administration Dates Next Due Hep B, Adult/Adol (ENERGIX/RECOMBIVAX) 9,10/18/2018 IPV (IPOL) 11/12/2024 PPD 10/16/2018 TDAP 10/16/2018 Family History Medical History Relation Name Comments Other (See Comments) Brother in sleep Other (See Comments) Father murdere d at 29 Breast cancer Maternal Aunt Cancer Maternal Aunt stomach Arthritis Mother Hypertension Mother Breast cancer Paternal Grandmother Relation Name Status Comments Brother Father Maternal Aunt Mother Alive Paternal Grandmother Social History Tobacco Use Types Packs/Day Years Used Date Smoking Tobacco: Never Smokeless Tobacco: Never Tobacco Cessation:Counseling Given: Not Answered Alcohol Use Standard Drinks/Week Comments No 0 [...] file Not on file Not on file Last Filed Vital Signs Vital Sign Reading Time Taken Comments Blood Pressure 117/80 11/15/2024 10:45 AM EDT Pulse 79 11/15/2024 10:45 AM EDT Temperature 37.2 ??C (98.9 ??F) 11/15/2024 10:45 AM E DT Respiratory Rate 16 11/15/2024 10:45 AM EDT Oxygen Saturation 95% 09/16/2024 4:13 PM EST Inhaled Oxygen Concentration - - Weight 74.8 kg (165 lb) 11/15/2024 10:45 AM EDT Height 162.6 cm (5' 4 ) 09/16/2024 4:13 PM EST Body Mass Index 28.32 09/16/2024 4:13 PM EST Plan of Treatment Upcoming Encounters Date Type Department Care Team (Late st Contact Info) Description 12/30/2024 1:20 PM EDT Office Visit [facility] [address] [place] [address] Herve Royal, AMIRAH [address] [place] [address] Health Maintenance Due Date Last Done Comments Anxiety Screening 1987 Imm-Hepatitis B (3 of 3 - 19 + 3-dose series) 04/20/2019 11/29/2018, 10/18/2018 Pap Smear 07/08/2021 07/08/2018 Cervical Cancer Screening 07/08/2023 HPV Screening 07/08/2023 07/08/2018 Pap + HPV 07/08/2023 07/08/2018 [id number] ( season) 2024 Relationship Safety Screening/Counseling 08/02/2024 08/02/2023, 06/01/2022, 05/03/2021, Additional history exists Annual Preventive Care Visit 11/12/202409/2023, 11/02/2022, 10/16/2018, Additional history exists Depression Monitoring 12/14/2024 09/16/2024 , 03/25/2024, 11/13/2023, Additional history exists Hypertension Screening (#1) 11/15/2025 Tobacco Screening 11/15/2025 11/15/2024 Diabetes Screening 11/30/2027 11/29/2024, 0 11/15/2024, 11/15/2024, Additional history exists Imm-DTaP/Tdap/Td (2 - Td or Tdap) 10/16/2028 019 Vaginal Pap Discontinued 07/08/2018 HIV Screening Completed 10/16/2018 Hepatitis C Screening Completed 10/16/2018 Alcohol and Drug Screen Completed 09/16/19, 03/25/2024, 11/13/2023, Additional history exists Cervical Ablation/Cold-Knife Conization Discontinued Cervical Cryotherapy Discontinued Colposcopy Discontinued Endometrial Biopsy Discontinued Excision/Leep Discontinued HPV Genotyping Discontinued Imm-Influenza Discontinued Vulvoscopy Discontinued Procedures Procedure Name Priority Date/Time Associated Diagnosis Comments MEDICATIONS SCANNED DOCUMENT 11/21/2024 3:00 AM EDT REFERRAL SCANNED DOCUMENT 11/21/2024 3:00 AM EDT REFERRAL SCANNED DOCUMENT 11/21/2024 3:00 AM EDT IMAGING SCANNED DOCUMENT 11/21/2024 3:00 AM EDT IMAGING SCANNED DOCUMENT 11/21/2024 3:00 AM EDT BLOOD COUNT COMPLETE AUTO&AUTO DIFRNTL WBC Routine 11/15/2024 11:16 AM EDT VITAMIN B12 & FOLATE Routine 11/15/2024 11:16 AM EDT Chronic fatigue Hyperlipidemia, unspecified hyperlipidemia type HEMOGLOBIN GLYCOSYLATED A1C Routine 11/15/2024 11:16 AM EDT Chronic fatigue Hyperlipidemia, unspecified hyperlipidemia type LIPID PANEL Routine 11/15/2024 11:16 AM EDT Chronic fatigue Hyperlipidemia, unspecified hyperlipidemia type THYROID CASCADING REFLEX PANEL Routine 11/15/2024 11:16 AM EDT Chronic fatigue Hyperlipidemia, unspecified hyperlipidemia type COMPREHENSIVE METABOLIC PANEL Routine 11/15/2024 11:16 AM EDT Chronic fatigue Hyperlipidemia, unspecified hyperlipidemia type BLOOD COUNT COMPLETE AUTO&AUTO DIFRNTL WBC Routine 11/15/2024 11:14 AM EDT Raynaud's disease without gangrene CREATININE KINASE ISOENZYMES W/CK TOTAL Routine 11/15/2024 11:14 AM EDT Raynaud's disease without gangrene CREATININE BLOOD Routine 11/15/2024 11:1 4 AM EDT Raynaud's disease without gangrene ??EDILBERTO SCREEN, IFA, WITH REFLEX TO TITER AND PATTERN/MIXED CONNECTIVE PANEL 2 Routine 11/15/2024 11:14 AM EDT Raynaud's disease without gangrene CT ABDOMEN W & PELVIS W Routine 10/31/2024 3:00 AM EDT Umbilical hernia without obstruction and without gangrene ANTIBODY HIV-1&HIV-2 SINGLE RESULT Routine 10/16/2018 9:17 AM EST Encounter for screening for HIV HEPATITIS A,B,C PANEL Routine 10/16/2018 9:17 AM EST Hepatitis B vaccination status unknown PAP SMEAR W/HPV, ABSTRACTED Routine 07/08/2018 from Last 3 Months or Most Recently Relevant to Health Maintenance Results * MEDICATIONS SCANNED DOCUMENT (11/21/2024 3:00 AM EDT) 11/21/2024 3:00 AM EDT Herve Griffinourt [employer] SCAN MEDS OTHER OR DERS Final Result * REFERRAL SCANNED DOCUMENT (11/21/2024 3:00 AM EDT) Only the most recent of2 resultswithin the time period is included. 11/21/2024 3:00 AM EDT Herve Griffinourt [employer] SCAN REFERRAL Fi nal Result * IMAGING SCANNED DOCUMENT (11/21/2024 3:00 AM EDT) Only the most recent of2 resultswithin the time period is included. 11/21/2024 3:00 AM EDT Herve Griffinourt [employer] SCAN IMAGING Fi nal Result * THYROID CASCADING REFLEX PANEL (11/15/2024 11:16 AM EDT) TSH 2.80 0.40 - 4.50 mIU/L [facility] Comment: ?Reference Range ?> or = 20 Years ??0.40-4.50 ? Ranges ?First trimester ?0.26-2.66 ?Second trimester ?? 0.55-2.73 ?Third trimester ?0.43-2.91 Blood Blood / Unknown 11/15/2024 1 1:16 AM EDT 11/15/2024 11:16 AM EDT Narrative [facility] - 11/16/2024 8:13 AM EDT FASTING:YES Herve Royal [employer] LAB - BLOOD DRAW E dited Result - Final Performing Organization Address City/State/[facility] Co de Phone Number [facility] [address] [address], [employer] [place] [employer] [address] [place] [address] * VITAMIN B12 & FOLATE (11/15/2024 11:16 AM EDT) VITAMIN B12 704 200 - 1,100 pg/mL [facility] FOLATE, SERUM 13.4 5.5 ng/mL [facility] Comment: ? Reference Range ? Low: ? <3.4 ? Borderline: ?3.4-5.4 ? Normal: ?>5.4 Blood Blood / Unknown 11/15/2024 1 1:16 AM EDT 11/15/2024 11:16 AM EDT Narrative [facility] - 11/16/2024 8:13 AM EDT FASTING:YES Herve Sedrick Genny [employer] LAB - BLOOD DRAW E dited Result - Final [facility] [address] [address], [employer] [facility] [address] [place] [address] * BLOOD COUNT COMPLETE AUTO&AUTO DIFRNTL WBC (11/15/2024 11:16 AM EDT) Only the most recent of2 resultswithin the time period is included. WHITE BLOOD CELL COUNT 7.4 3.8 - 10.8 Thousand/ uL [facility] RED BLOOD CELL COUNT 4.24 3.80 - 5.10 Million/u L [facility] HEMOGLOBIN 13.1 11.7 - 15.5 g/dL [employer] [place] [employer] HEMATOCRIT 39.7 35.0 - 45.0 % [employer] [place] [employer] MCV 93.6 80.0 - 100.0 fL [employer] [place] [employer] MCH 30.9 27.0 - 33.0 pg [facility] MCHC 33.0 32.0 - 36.0 g/dL [facility] Comment: For adults, a slight decrease in the calculated MCHC value (in the range of 30 to 32 g/dL) is most likely not clinically significant; however, it should be interpreted with caution in correlation with other red cell parameters and the patient's clinical condition. RDW 12.5 11.0 - 15.0 % [facility] PLATELET COUNT 249 140 - 400 Thousand/ uL [employer] MPV 11.1 7.5 - 12.5 fL [facility] ABSOLUTE NEUTROPHILS 3,700 1,500 - 7,800 cells/uL [facility] ABSOLUTE LYMPHOCYTES 3,071 850 - 3,900 cells/uL [facility] ABSOLUTE MONOCYTES 570 200 - 950 cells/uL [facility] ABSOLUTE EOSINOPHILS 30 15 - 500 cells/uL [facility] ABSOLUTE BASOPHILS 30 0 - 200 cells/uL [facility] NEUTROPHILS PCT 50 % [facility] LYMPHOCYTES 41.5 % [facility] [place] [facility] MONOCYTES 7.7 % [facility] EOSINOPHILS 0.4 % [facility] BASOPHILS 0.4 % [facility] [employer] [facility] 11/15/2024 11:1 6 AM EDT 11/15/2024 11:16 AM EDT Narrative [facility] - 11/16/2024 8:13 AM EDT FASTING:YES Herve Royal [facility] LAB - BLOOD DRAW E dited Result - Final Performing Organization Address [facility] de Phone Number [facility] [address] [place] [address], [employer] [address] [address] * HEMOGLOBIN GLYCOSYLATED A1C (11/15/2024 11:16 AM EDT) HEMOGLOBIN A1C 5.2 <5.7 % of total Hgb [facility] Comment: For the purpose of screening for the presence of diabetes: <5.7% ? Consistent with the absence of diabetes 5.7-6.4% ?Consistent with increased risk for diabetes ?(prediabetes) > or =6.5% ??Consistent with diabetes This assay result is consistent with a decreased risk of diabetes. Currently, no consensus exists regarding use of hemoglobin A1c for diagnosis of diabetes in children. According to [place] Diabetes Association (ADA) guidelines, hemoglobin A1c <7.0% represents optimal control in non- diabetic patients. Different metrics may apply to specific patient populations. Standards of Medical Care in Diabetes(ADA). ?? Blood Blood / Unknown 11/15/2024 1 1:16 AM EDT 11/15/2024 11:16 AM EDT Narrative [facility] - 11/16/2024 8:13 AM EDT FASTING:YES us Herve Royal [employer] LAB - BLOOD DRAW F inal Result Performing Organization Address [facility]/ZIP Co de Phone Number [facility] [address] [address], [employer] [facility] [address] [place] [address] * (ABNORMAL) LIPID PANEL (11/15/2024 11:16 AM EDT) CHOLESTEROL, TOTAL 218(H) <200 mg/dL [facility] HDL CHOLESTEROL 57 > OR = 50 mg/dL [facility] TRIGLYCERIDES 65 <150 mg/dL [facility] LDL-CHOLESTEROL 145(H) 99 mg/dL (calc) [employer] [facility] Comment: Reference range: <100 Desirable range <100 mg/dL for primary prevention; ?? <70 mg/dL for patients with CHD or diabetic patients with > or = 2 CHD risk factors. LDL-C is now calculated using the Anaya calculation, which is a validated novel method providing better accuracy than the Friedewald equation in the estimation of LDL-C. Osmin JACOBSON et al. FAUZIA. 2013;310(19): 3042-0117 (http://education.Spyra/faq/LVU351) CHOL/HDLC RATIO 3.8 <5.0 (calc) [facility] NON-HDL CHOLESTEROL 161(H) <130 mg/dL (calc) [facility] Comment: For patients with diabetes plus 1 major ASCVD risk factor, treating to a non-HDL-C goal of <100 mg/dL (LDL-C of <70 mg/dL) is considered a therapeutic option. Blood Blood / Unknown 11/15/2024 1 1:16 AM EDT 11/15/2024 11:16 AM EDT Narrative [facility] - 11/16/2024 8:13 AM EDT FASTING:YES Herve Royal [employer] LAB - BLOOD DRAW F inal Result [facility] [address] [address], [employer] [facility] [address] [place] [address] * COMPREHENSIVE METABOLIC PANEL (11/15/2024 11:16 AM EDT) Pathologist [facility] GLUCOSE 89 65 - 99 mg/dL [facility] Comment: ?Fasting reference interval UREA NITROGEN (BUN) 9 7 - 25 mg/dL [facility] CREATININE (blood) 0.91 0.50 - 0.97 mg/dL [facility] EGFR 83 > OR = 60 mL/min/1. 73m2 [facility] BUN/CREATININE RATIO SEE NOTE: [employer] [facility] Comment: ?? Not Reported: BUN and Creatinine are within ?? reference range. ? SODIUM 136 135 - 146 mmol/L [facility] POTASSIUM 4.2 3.5 - 5.3 mmol/L [facility] CHLORIDE 101 98 - 110 mmol/L [facility] [place] DIOXIDE 29 20 - 32 mmol/L [facility] CALCIUM 9.0 8.6 - 10.2 mg/dL [facility] PROTEIN, TOTAL 7.0 6.1 - 8.1 g/dL [facility] ALBUMIN 4.4 3.6 - 5.1 g/dL [facility] GLOBULIN 2.6 1.9 - 3.7 g/dL (calc) [facility] ALBUMIN/GLOBULI N RATIO 1.7 1.0 - 2.5 (calc) [facility] BILIRUBIN, TOTAL 0.4 0.2 - 1.2 mg/dL [facility] ALKALINE PHOSPHATASE 68 31 - 125 U/L [facility] AST 11 10 - 30 U/L [facility] ALT 11 6 - 29 U/L [facility] Blood Blood / Unknown 11/15/2024 1 1:16 AM EDT 11/15/2024 11:16 AM EDT Narrative [facility] - 11/16/2024 8:13 AM EDT FASTING:YES Herve Royal [employer] LAB - BLOOD DRAW E dited Result - Final [facility] [address] [address], [employer] [facility] [address] [place] [address] * ??EDILBERTO SCREEN, IFA, WITH REFLEX TO TITER AND PATTERN/MIXED CONNECTIVE PANEL 2 (11/15/2024 11:14 AM EDT) Pathologist [facility] EDILBERTO SCREEN NEGATIVE NEGATIVE [facility] Comment: EDILBERTO IFA is a first line screen for detecting the presence of up to approximately 150 autoantibodies in various autoimmune diseases. A negative EDILBERTO IFA result suggests an EDILBERTO-associated autoimmune disease is not present at this time, but is not definitive. If there is high clinical suspicion for Sjogren's syndrome, testing for anti-SS-A/Ro antibody should be considered. Anti-Carley-1 antibody should be considered for clinically suspected inflammatory myopathies. AC-0: Negative International Consensus on EDILBERTO Patterns (https://doi.org/10.1515/oeny-5156-0912) For additional information, please refer to http://education.Spyra/faq/AXF036 (This link is being provided for informational/ educational purposes only.) ?? Blood Blood / Unknown 11/15/2024 1 1:14 AM EDT 11/15/2024 11:15 AM EDT Narrative [facility] - 11/20/2024 12:14 AM EDT FASTING:YES Carmen Landaverde PA-C LAB - BLOOD DRAW Edited Resu lt - Final [facility] [address] [address], [employer] [address] [address] * CREATININE KINASE ISOENZYMES W/CK TOTAL (11/15/2024 11:14 AM EDT) Pathologist [facility] CREATINE KINASE, TOTAL 39 20 - 239 U/L [facility]/ [employer] CK-BB None Detected None Detected [facility]/ [employer] CK-MB 0 <5 % [facility]/ [facility] CK-MM 100 95 - 100 % [facility]/ [facility] INTERPRETATION see note [facility] Comment: Normal isoenzyme pattern with a normal total activity. Blood Blood / Unknown 11/15/2024 1 1:14 AM EDT 11/15/2024 11:15 AM EDT Narrative [facility] [place] - 11/20/2024 12:14 AM EDT FASTING:YES us Carmen Landaverde PA-C LAB - BLOOD DRAW Final Resul t [facility] [place] [address] [place], [place] , [place] [facility] [place] [address] [place], [place] * CREATININE BLOOD (11/15/2024 11:14 AM EDT) CREATININE (blood) 0.92 0.50 - 0.97 mg/dL [facility] EGFR 82 > OR = 60 mL/min/1.7 3m2 [facility] Blood Blood / Unknown 11/15/2024 1 1:14 AM EDT 11/15/2024 11:15 AM EDT Narrative [facility] - 11/20/2024 12:14 AM EDT FASTING:YES us Carmen Landaverde PA-C LAB - BLOOD DRAW Edited Resu lt - Final Performing Organization Address City/[facility]/ZIP Co de Phone Number [facility] [address] [address], [employer] [address] [address] * CT ABDOMEN W & PELVIS W (10/31/2024 3:00 AM EDT) 10/31/2024 3:00 AM EDT Herve Royal [employer] PRESIDENT IMG CT Fi nal Result [facility] Corporate Office [address], [address] [place] [address], * HEPATITIS A,B,C PANEL (10/16/2018 9:17 AM EST) HEPATITIS B SURFACE ANTIBODY NEGATIVE NEGATIVE [facility] HEPATITIS B SURFACE ANTIGEN NEGATIVE NEGATIVE [facility] [facility] Comment: Over the counter supplements containing high doses of biotin may interfere with this assay. ??If interference is suspected, patients shoud be retested after refraining from biotin supplements for 72 hours. HEPATITIS C VIRUS DIAGNOSTIC NEGATIVE NEGATIVE [facility] HEPATITIS B CORE ANTIBODY NEGATIVE NEGATIVE [facility] HEPATITIS A ANTIBODY TOTAL NEGATIVE NEGATIVE [facility] Comment: Over the counter supplements containing high doses of biotin may interfere with this assay. ??If interference is suspected, patients shoud be retested after refraining from biotin supplements for 72 hours. Blood specimen (specimen) Blood / Unknown 10/16/2018 9:17 AM EST 10/16/2018 9:58 AM EST [facility] - 10/16/2018 2:10 PM EST [employer], [place] [address] Editor At Large - Prabha Mcclendon MD PT ID [id number] ORD# [id number] [facility] - BLOOD DRAW [place] [address], * HIV-1 & HIV-2 ANTIBODIES (10/16/2018 9:17 AM EST) [facility] HIV 1 AND 2 ANTIBODY SCREEN NEGATIVE NEGATIVE [facility] Comment: This assay is a 4th generation assay allowing for earlier detection of HIV infection by detecting the presence of the HIV-1 p24 antigen as well as the traditional antibodies to HIV type 1 (including group O) and type 2. ??Use of a 4th generation assay is the current CDC recommendation for HIV screening. Blood specimen (specimen) Blood / Unknown 10/16/2018 9:17 AM EST 10/16/2018 9:58 AM EST [facility] - 10/16/2018 2:39 PM EST [employer], [place] [address] Editor At Large - Prabha Mcclendon MD PT ID [id number] ORD# [id number] [facility] - BLOOD DRAW Final Result [facility] [address] [place] [address], [place] [phone] * PAP SMEAR W/HPV, ABSTRACTED (07/08/2018) PAP SMEAR INTERPRETATION NORMAL NORMAL [facility] HPV (HUMAN PAPILLOMA) NEGATIVE NEGATIVE [facility] HPV TYPE 16 NEGATIVE NEGATIVE [facility] HPV TYPE 18 NEGATIVE NEGATIVE [facility] Specimen from vagina (specimen) 07/08/2018 Provider [facility] - NO BLOOD DRAW Final Result Performing Organization Address City/[facility]/ZIP Co de Phone Number [facility] [address] [place] [address], [place] [phone] from Last 3 Months or Most Recently Relevant to Health Maintenance [place] [address] [facility] NET DENTAL [address] ACO Care Teams Set Up Mechanic Heading Machines Relationship Specialty Start Date End Date Herve Royal FNP [address] [place] [address] PCP - General Family Medicine, FREIGHT INSPECTOR 06/02/21
--- OUTSIDE RECORDS SUMMARY | 2024-12-15 13:16 | XMS_ITS | Continuity of Care Document ---
Author Organization [facility]. If a dditional information is needed, contact Health Information Management at [phone] Address [address] [place] [address] Phone Care Team Providers Care Art Sales Consultant Name Role Phone Unavailable Unavailable Unavailable Unavailable [...] ORAL BID Start:05-Feb-2022 Comments:500 MG PO BID meclizine hydrochloride 25 M G Oral Tablet;25 MILLIGRAM* ORAL TID Start:01-Feb-2022 Comments:25 MG PO TID As Needed for DIZZINESS LORazepam 1 MG Oral Tablet;1 MILLIGRAM* ORAL BID Start:01-Feb-2022 Status:Discontinued Comments:1 MG PO BID As Needed for ANXIETY pantoprazole 20 MG Delayed R elease Oral Tablet [Protonix];20 MILLIGRAM* ORAL BID Start:01-Feb-2022 Comments:20 MG PO BID amitriptyline hydrochloride 25 MG Oral Tablet;25 MILLIGRAM* ORAL DAILY 1800 Start:01-Feb-2022 Comments:25 MG PO DAILY 1800 ondansetron 4 MG Oral Tablet ;4 MILLIGRAM* ORAL Q8H PRN Start:01-Feb-2022 Comments:4 MG PO Q8H PRN As Needed for NAUSEA gabapentin 100 MG Oral Capsu le;100 MILLIGRAM* ORAL QHS Start:01-Feb-2022 Comments:100 MG PO QHS hydrOXYzine pamoate 25 MG Or al Capsule [Vistaril];25 MILLIGRAM* ORAL QHS Start:01-Feb-2022 Status:Discontinued Comments:25 MG PO QHS mirtazapine 15 MG Oral Table t [Remeron];15 MILLIGRAM* ORAL QHS Start:01-Feb-2022 Comments:15 MG PO QHS zolpidem tartrate 5 MG Oral Tablet;5 MILLIGRAM* ORAL BEDTIME PRN Start:01-Feb-2022 Comments:5 MG PO BEDTIME PRN As Needed for INSOMNIA STRESS FORMULA;1 TABLET ORAL DAILY Start:01-Feb-2022 Comments:1 TAB PO DAILY 120 ACTUAT Fluticasone propi radha 0.05 MG/ACTUAT Nasal Inhaler;1 SPRAY NASAL DAILY Start:01-Feb-2022 Comments:1 SPRAY NASAL DAILY Social History Smoking Status Never smoked tobacco Recorded: 31-Jan-2022
--- OUTSIDE RECORDS SUMMARY | 2024-12-15 13:16 | XMS_ITS ---
Author Name [facility] Organization Unknown Encounters Encounter Type Encounter Reason Primary Diagnosis Location Date Ambulatory [facility] [place] 08/01/2023 Ambulatory [facility] 07/31/2023 Ambulatory [facility] [place] 07/31/2023
--- OUTSIDE RECORDS SUMMARY | 2024-12-15 13:16 | XMS_ITS ---
Author Organization [facility] Address [address] [place] [address] Care Team Providers Care Pretzel Cooker Name Role Phone Herve Royal VISUALLY IMPAIRED TEACHER Primary Care Prov ider SA38 BP Program Status:Enrolled (Active) Start date:11/20/2022 Enrollment date:11/20/2022 Case Team Name Relationship Phone Rosa Valentine LPN (Responsible Staff) [phone] Continued Care and Services Coordination
== END 2024-12-15 14:59 | disposition home or self-care (01) ==
LOC: HO.HSMS 11:29
PROVIDERS: PCP Nurse Practitioner Family; Visit Provider Nurse Practitioner Family
DX: R25.9 Unspecified abnormal involuntary movements (principal); R25.1 Tremor, unspecified; G57.53 Tarsal tunnel syndrome, bilateral lower limbs; G43.009 Migraine without aura, not intractable, without status migrainosus; R56.9 Unspecified convulsions; R51.9 Headache, unspecified
CPT/HCPCS: 99214

== ENCOUNTER 2025-01-14 10:24 | Outpatient (AMB) | payer MEDICAID, SELFPAY ==
[2025-01-14 10:42] VITALS: BP 122/82; PULSE 83; O2SAT 98; BMI 27.5
--- NOTE | 2025-01-14 10:42 | MHC.OFFVIS ---
Vital Signs 01/14/25 10:42 Height 5 ft 5 in Weight 165 lb BMI 27.5 BP 122/82 Blood Pressure Location Rt brachial Position Sitting Pulse 83 Pulse Source Pulse Oximeter Pulse Oximetry (%) 98 Oxygen Delivery Method Room Air Intake Visit Reasons: 6 mo follow up [place] Hand Required: No Accompanied by: Self / Same As Patient Allergies No Known Allergies Allergy (Verified 01/14/25 10:44) Medication List - Last Reconciled 01/14/25 by AMIRAH Preciado acetazolamide 125 - 250 mg (1 - 2 x 125 mg) PO Q6-8H PRN 7 days MDD 6 tabs albuterol sulfate 90 mcg/actuation 1 inh inhalation QID amitriptyline 40 mg (4 x 10 mg) PO BEDTIME 30 days cholecalciferol (vitamin D3) 25 mcg PO DAILY clonazepam 0.25 - 0.5 mg (0.5 - 1 x 0.5 mg) PO BEDTIME PRN 30 days diphenhydramine HCl (Benadryl Allergy) 25 - 50 mg (1 - 2 x 25 mg) PO TID PRN 30 days fluticasone propionate 50 mcg/actuation 1 spray intranasal DAILY galcanezumab-gnlm (Emgality Pen) 120 mg subcut ONCE 30 days ibuprofen 800 mg PO Q8H lorazepam 0.25 - 0.5 mg (0.5 - 1 x 0.5 mg) PO DAILY PRN 14 days meclizine 25 mg PO TID PRN 14 days mirtazapine 15 mg PO BEDTIME wygxfisb-xen-ahsx fum-folic ac 7.5 mg iron-400 mcg 1 tab PO DAILY multivitamin 1 tab PO DAILY omeprazole 20 mg PO BID 30 days ondansetron HCl 4 mg PO Q8H oxcarbazepine 600 mg (2 x 300 mg) PO BID 30 days pantoprazole 20 mg PO BID propranolol 10 - 20 mg (1 - 2 x 10 mg) PO BEDTIME 30 days rizatriptan 5 - 10 mg (0.5 - 1 x 10 mg) PO Q2H PRN 21 days HPI Comments Details: 39-year-old female presents for follow-up ofrecent new onset involuntary facial movements and bilateral hand tremors. percussion teacher: [id number]- present throughout visit to assist with translation as needed. Patient states that her involuntary facial and arm tremor are progressing, now are constant but still with varying intensity. She is noticing that her face can look puffy or purplish. She states she continues to have word-finding difficulties, word swapping difficulties. These movements bother her it makes her more anxious, and make her family nervous as well. She states she has not had a full convulsive syncopal episode and quite some time. Patient states she will have the labs ordered at the last visit done today after this appointment. She is scheduled for the EEG tomorrow. She has reduce the amitriptyline from 50 mg to 40 mg daily bedtime, and then stopped it completely a few days ago without apparent adverse effect. She states she did not realize that she should wean off of this little bit more slowly. She states her PCP started her on ? Benztropine twice a day which she feels is helping some. She is still having episodes of the newer nocturnal headache, which she states fortunately only last couple of sec even though it is very very strong and severe. This headache may occur 1-3 times in the night, but overall she has had about 7 attacks of this in the last month. She did not start Propranolol yet. 12/15/2024, previous HPI: Patient reports a couple of weeks ago, she started having involuntary facial movements and BUE rest and action tremor. Initially, this was mild and she did not even notice it just her family noted. However, the involuntary movements and tremor persisted and steadily became obvious in more bothersome to patient. She also notes at that time, she is having increased headaches, episodes of speaking slowly and word swapping, thigh rash, hands and legs paring purplish. Then, she had an approximately 1 minute long typical convulsive episode and elevated BP- up to 140/80s- though she notes she is normally low normotensive or hypotensive. On 11/29/24, patient states she went to [facility] ER to have the new onset involuntary movements and tremors evaluated, however per ER note, she was evaluated for convulsive episode, considered to be typical for her known nonepileptic convulsive disorder, and was discharged home on her usual home medication regimen and advised to follow-up with Neurology here. Since, patient has continued to have these constant involuntary lip, buccal, jaw movements, as well as BUE rest and action tremor. She states these are constant, however varying intensity. She states overall she also feels that her lower legs feel more numb than usual. She is having dizziness and lightheadedness, bilateral tinnitus. She continues to have frequent migraine, note she is overdue for her Emgality- states pharmacy need something from us. She denies any TMJ tightness or neck symptoms. She denies any recent changes in her medications. Denies taking any OTC supplements. She denies history of neuroleptic use, metoclopramide use, or psychiatric hospitalization. She denies recent dental work. [facility] Medical History No known health problems Social History Alcohol intake: never Patient Tobacco Use Status: Never used Tobacco Physical Exam Vital Signs: Last Vital Signs Pulse 83 01/14/25 10:42 BP 122/82 01/14/25 10:42 Pulse Ox 98 01/14/25 10:42 Oxygen Delivery Method Room Air 01/14/25 10:42 BMI result Body Mass Index 27.5 Const General: cooperative and no acute distress Orientation/consciousness: patient oriented x3 Eyes Pupils: Equal, round and reactive pupils present Resp Effort & Inspection: normal respiratory effort and able to speak in complete sentences Neuro Other: Mild repetitive dyskinetic lip, lower jaw involuntary movements. No appreciable upper extremity postural tremor Mild a left elbow tightness Fine finger movements and foot taps small slow, a bit more so on the left Clear speech without noticeable word swapping. General: patient oriented x3, gait normal, moves all extremities and deep tendon reflexes 2+ bilaterally Cranial nerves: Yes CN's II-XII intact bilaterally, Yes Equal, round and reactive pupils present, Yes Bilaterally intact EOM present and Yes Nystagmus not present Cognition (Neuro): normal cognition Motor exam (neuro): 5/5 motor strength present throughout Psych Appearance: grossly normal Mental Status: mental status grossly normal Affect: normal affect Attitude: cooperative Assessment & Plan Assessment & Plan (1) Abnormal involuntary movements: Comment: Facial Code(s): R25.9 - Unspecified abnormal involuntary movements Category: Medical (2) Tremor: Comment: BUE action and rest Code(s): R25.1 - Tremor, unspecified Category: Medical (3) Tarsal tunnel syndrome, bilateral: Code(s): G57.53 - Tarsal tunnel syndrome, bilateral lower limbs Category: Medical (4) Migraine without aura: Code(s): G43.009 - Migraine without aura, not intractable, without status migrainosus Category: Medical (5) Convulsions: Comment: January 2022: on an airplane to [place]. plane landed in [place]. MRI showed 9mm cerebellar hemangioma. Evaluated by [facility] Neurology- Video EEG results c/w Non-Epileptic Convulsions Code(s): R56.9 - Unspecified convulsions Category: Medical (6) Nocturnal headaches: Code(s): R51.9 - Headache, unspecified Category: Medical Plan For new onset facial involuntary movements and BUE tremor, which are distinct from her baseline nonepileptic compulsions symptoms: Check EEG- scheduled for tomorrow Again check labs for common etiologies Continue to hold amitriptyline-which patient has already stopped- asrarely antidepressants have been associated with tardive dyskinesia symptoms. Continue benztropine-ordered by PCP- until review of above. Patient denies any history of neuroleptic or dopamine blocking medication use. 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 Start Propranolol 10 mg twice a day- as this may also help tremor and anxiety as well.- advised to notify us if she develops any signs of orthostatic lightheadedness, worsening dizziness. If patient tolerates this, we may consider low-dose propranolol ER. Had consider trial of indomethacin q.h.s., however patient is wary to use NSAIDs due to the presence of the cavernous hemangioma. Also had discussed trying caffeine q.h.s., however patient has previously worried this would further interfere with her sleep quality. For convulsions: [facility]- VEEG results c/w non-epileptic convulsions. Pt is f/b therapist. Could consider referral to a functional neurological disorder clinic. Continue Trileptal 600mg bid- for mood and headaches as well. Lorazepam 0.25-0.5mg at onset of convulsion s/s. ? For BLE tarsal tunnel syndrome a/w BLE pain: Review of [facility] shows patient has not filled Gabapentin in multiple months.. BLE EMG/NCS-stable bilateral moderate tibial neuropathy. Future considerations: referring back to [facility] or [facility] orthopedics appt for 2nd ortho opinion-previously requested.. For BUE paresthesias, swelling, hand weakness, R > L: BUE EMG/NCS- normal. Hold previous vascular consult for now pending review of above. ? For migraine headache: Continue Emgality as patient had greater than 50% reduction in monthly migraine days with use- we will check with pharmacy to determine why this is not being filled. Continue Emgality 120mg sc q month for migraine prevention. Patient has stopped Amitriptyline 50mg qhs- continue to hold Continue Sumatriptan 100mg prn, may adjunct w/ Tylenol. Patient has been provided a prn order for Acetazolamide to prevent air travel induced migraine attack. Acetazolamide 125-250 mg every 6-8 hours starting the day before air travel through up to the day following air travel. Contraindications: Aimovig d/t pt has leg cramps. Beta-blockers d/t hypotension/convulsions/syncope. NSAIDs/Indomethacin- per BM advice. Note however that cavernoma itself is not an absolute contraindication for NSAIDs. ?? For dizziness: Zofran prn. ? Follow-up as scheduled Medications: Changed From propranolol 10 - 20 mg (1 - 2 x 10 mg) PO BEDTIME 30 days 60 tabs 1RF R51.9 - Headache, unspecified To propranolol 10 mg PO BID 30 days 60 tabs 1RF R51.9 - Headache, unspecified Coding Level of Care Code Est Pt Level 4 (43655) Complex EM visit Add On G2211 Diagnoses Abnormal involuntary movements R25.9 Tremor R25.1 Tarsal tunnel syndrome, bilateral G57.53 Migraine without aura G43.009 Convulsions R56.9 Nocturnal headaches R51.9 Time Spent (min) 65 Comment Greater than 60 minutes spent with patient, an additional time spent documenting
== END 2025-01-14 12:08 | disposition home or self-care (01) ==
LOC: HO.HSMS 10:25
PROVIDERS: PCP Nurse Practitioner Family; Visit Provider Nurse Practitioner Family
DX: R25.9 Unspecified abnormal involuntary movements (principal); R25.1 Tremor, unspecified; G57.53 Tarsal tunnel syndrome, bilateral lower limbs; G43.009 Migraine without aura, not intractable, without status migrainosus; R56.9 Unspecified convulsions; R51.9 Headache, unspecified
CPT/HCPCS: 99214

== ENCOUNTER → 2025-01-14 10:24 | Outpatient (BNVA) | payer MEDICAID, SELFPAY | PROVIDERS: PCP Nurse Practitioner Family; Visit Provider Nurse Practitioner Family | DX: R25.9 Unspecified abnormal involuntary movements (principal); R25.1 Tremor, unspecified; R56.9 Unspecified convulsions; G57.53 Tarsal tunnel syndrome, bilateral lower limbs; G43.009 Migraine without aura, not intractable, without status migrainosus; Z79.899 Other long term (current) drug therapy | CPT/HCPCS: 99212 ==

== ENCOUNTER 2025-01-14 12:09 | Outpatient (REF) | payer MEDICAID, SELFPAY ==
[2025-01-14 17:57] LABS: MANUAL DIFF FLAG NO
[2025-01-14 18:15] LABS: Basophils Percent Auto 0.3 % (0-2); Eosinophils Absolute Auto 0.1 X10*3/uL (0.0-0.4); Eosinophils Percent Auto 1.7 % (0-4); Hematocrit 38.9 % (37.0-47.0); Hemoglobin 12.6 g/dl (12.0-16.0); Imm Gran Abs Auto 0.01 X10*3/uL (0.00-0.03); Imm Gran Pct Auto 0.2 % (0.0-0.4); Lymphocytes Absolute Auto 2.7 X10*3/uL (1.2-4.9); Lymphocytes Percent Auto 46.2 % (20-40); Mean Corpuscular HGB Conc 32.4 g/dl (31.0-35.0); Mean Corpuscular Hemoglobin 31.2 pg (27.0-33.0); Mean Corpuscular Volume 96.3 fL (80.0-98.0); Mean Platelet Volume 11.2 fL (9.4-12.3); Monocytes Absolute Auto 0.5 X10*3/uL (0.1-1.2); Monocytes Percent Auto 8.2 % (2-11); Neutrophils Absolute Auto 2.5 x10*3/uL (2.0-8.3); Neutrophils Percent Auto 43.4 % (45-73); Platelet Count 220 X10*3/uL (160-400); Red Blood Count 4.04 X10*6/uL (4.20-5.50); Red Cell Distribution Width 13.5 % (11.0-16.0); White Blood Count 5.9 X10*3/uL (4.8-10.8)
[2025-01-14 18:29] LABS: Rheumatoid Factor < 13.0 IU/mL (<15.0)
[2025-01-14 18:42] LABS: Alanine Aminotransferase 19 U/L (0-31); Alkaline Phosphatase 57 U/L (39-117); Anion Gap 9 (12-20); Aspartate Amino Transferase 27 U/L (5-31); Bilirubin Total 0.2 mg/dL (0.0-1.0); Blood Urea Nitrogen 8 mg/dL (9-16); C Reactive Protein 0.28 mg/dL (< or = 0.50); Calcium 8.8 mg/dL (8.4-10.2); Carbon Dioxide 28 mmol/L (22-29); Chloride 106 mmol/L (96-108); Estimated Glomerular Filt Rate > 60; Glucose Random 84 mg/dL (60-115); Iron 68 mcg/dL (30-160); Percent Iron Saturation 27 % (15-50); Potassium 4.2 mmol/L (3.3-5.1); Sodium 139 mmol/L (135-145); Total Iron Binding Capacity 248 mcg/dL (228-428); Total Protein 6.8 g/dL (6.5-8.0); Unsaturated Iron Binding 180 ug/dL
[2025-01-14 18:46] LABS: Ferritin 13 ng/mL (10-122); TSH reflex Free T4 1.08 uIU/mL (0.32-4.0)
[2025-01-14 18:59] LABS: Vitamin B12 869 pg/mL (200-900)
[2025-01-14 19:03] LABS: Erythrocyte Sedimentation Rate 6 MM/HR (0-20)
[2025-01-15 03:39] LABS: Ceruloplasmin 31 mg/dL (14-48)
[2025-01-15 17:29] LABS: Lyme Abs Screen <0.90 index
[2025-01-19 04:44] LABS: Vitamin B6 17.5 ng/mL (2.1-21.7)
[2025-01-19 15:09] LABS: Vitamin D 25-OH, D2 <4 ng/mL; Vitamin D 25-OH, D3 25 ng/mL; Vitamin D 25-OH, Total 25 ng/mL (30-100)
[2025-01-20 06:29] LABS: Anti Nuclear Antibody Screen NEGATIVE (NEGATIVE)
== END 2025-01-14 12:10 | disposition home or self-care (01) ==
LOC: HO.HKASLDS 12:09
PROVIDERS: Visit Provider Nurse Practitioner Family
DX: R25.9 Unspecified abnormal involuntary movements (principal); R25.1 Tremor, unspecified; R00.0 Tachycardia, unspecified; R53.83 Other fatigue; R20.2 Paresthesia of skin; D64.9 Anemia, unspecified
CPT/HCPCS: 36415; 80053; 82306; 82390; 82607; 82728; 82746; 83540; 84207; 84443; 85025; 85652; 86038; 86140; 86431; 86617; 86618

== ENCOUNTER 2025-01-15 07:39 | Outpatient (REF) | payer MEDICAID, SELFPAY ==
--- NOTE | 2025-01-15 07:42 | EEG_ITS ---
This is a 16-channel EEG with an EKG lead. The patient is reported awake during the tracing. Background EEG rhythm is low to medium amplitude fast alpha to theta with no obvious asymmetry or paroxysmal tendency. Intermittently bitemporal theta discharges were noted. Photic stimulation does not produce any significant abnormality. Hyperventilation was not performed. Cardiac lead did not reveal any significant abnormality. IMPRESSION: No significant abnormality noted on this EEG. MD SALLY Collins/RENU / [id number]
--- OUTSIDE RECORDS SUMMARY | 2025-01-15 07:42 | XMS_ITS | Continuity of Care Document ---
Author Organization [facility]. If a dditional information is needed, contact Health Information Management at [phone] [address] [place] [address] Phone Care Team Providers Care Fruit Tester Name Role Phone Unavailable Unavailable Unavailable Unavailable Unavailable Unavailable Unavailable Unavailable Unavailable Problems D18.02 Onset:05-Feb-2022 Comments:Onset Date: 20220205 K59.00(K59.00) Onset:04-Feb-2022 Comments:Onset Date: 20220204 R42 Onset:01-Feb-2022 Comments:Onset Date: 20220201 G56.00 Onset:31-Jan-2022 Comments:Onset Date: 20220131 D72.829 Onset:31-Jan-2022 Comments:Onset Date: 20220131 Seizure Onset:31-Jan-2022 Plamoottjasmin Harmon DO Comments:Onset Date: 20220131 Mental Status [...] PO Q8H PRN As Needed for NAUSEA mirtazapine 15 MG Oral Table t [Remeron];15 MILLIGRAM* ORAL QHS Start:01-Feb-2022 Comments:15 MG PO QHS hydrOXYzine pamoate 25 MG Or al Capsule [Vistaril];25 MILLIGRAM* ORAL QHS Start:01-Feb-2022 Status:Discontinued Comments:25 MG PO QHS gabapentin 100 MG Oral Capsu le;100 MILLIGRAM* ORAL QHS Start:01-Feb-2022 Comments:100 MG PO QHS zolpidem tartrate 5 MG [...]
== END 2025-01-15 07:40 | disposition home or self-care (01) ==
LOC: HO.NEURO 07:39
PROVIDERS: PCP Nurse Practitioner Family; Visit Provider Nurse Practitioner Family
DX: R56.9 Unspecified convulsions (principal); R25.9 Unspecified abnormal involuntary movements; R25.1 Tremor, unspecified
CPT/HCPCS: 95816

== ENCOUNTER 2025-02-27 20:24 | Emergency (ER) | payer MEDICAID, SELFPAY ==
--- OUTSIDE RECORDS SUMMARY | 2024-11-21 07:30 | XMS_ITS | Continuity of Care Document ---
Author Organization [facility] Address [address] [place] [address] [address] [place] [phone] Phone Care Team Providers Care Marketing Administrative Assistant Name Role Phone Lucho LE, GERMANIA, Sedrick CARRERA Unavailable U navailable Procedures Procedure Date Office/Oupt E&M New Pt 30 Mins- CT & [place] Surgical Stockings Duomed Knee High 15-2 0 Duplex Scan-extrem Veins; Comp- [place] & [place] Advance Directives Directive Yes / No Effective Date File Name No Information Encounters Encounter Description Practice Location Reason(s) For Visit Diagnoses Date Provider Providers Copied on Encounter Office/Oupt E&M New Pt 30 Mins- [place] & [place] [facility], [address] [place] [address] [address], [place], [id number], [place] tel:[phone] CVR [facility] Venous insufficiency (chronic) (peripheral)R estless legs syndromeCramp and spasmLocalize d edema 5 Lucho LE, DEBI SOLO. [address] [facility] [address], [place], [place], [id number] , [place]. tel:[phone] Referring Provider: Bi Royal BURSAR, [facility] [address] [place], [address]. tel:[phone] [facility], [address] [place] [address] [address], [id number], [place] tel:[phone] [facility] - [place] [facility] [place] Chronic venous hypertension (idiopathic) with other complications of bilateral lower extremity Lucho LE, RVT, RPVI Sedrick. [address] [facility], [address], [place], [place], [id number] , . [phone] Referring Provider: Bi Royal BURSAR, [facility] [address] [facility], [place], [address]. tel:[phone] Family History Family Member Type Diagnosis Age At Onset No Information Payers Payer name Insurance type Covered libertarian ID Authoriza tiphilly(s) Medical Assistance [facility] [id number] Social History Type Description Quantity Date Captured Comments Alcohol Use Details Unknown Caffeine Use Details Unknown Tobacco Use Status Current non-smoker Smoking Status Never Smoker Non-Smoking Tobacco Use Details : No Details Available : No Details Available Sex Female Vital Signs Date / Time: Height Weight BMI Pulse Rate Blood Pressure Temperature Respiratory Rate Body Surface Area Head Circumference Head Circ. Percentile Wt./Adriel. Percentile BMI percentile Pulse Ox Inhaled Ox 78.020 kg (172.00 lbs) 28.6 9 kg/m eter (2) 128/76 mm[Hg] Chief Complaint And Reason For Visit No Information Reason For Referral Reason For Referral No Information Plan Of Treatment Date Type Action Status Goal Diet education completed Referral Ordered: Weight management: Referral to physician timeframe: 3 Months (related to Body mass index (BMI) 28.0-28.9, adult) ordered History Of Present Illness Encounter Date Complaint History Of Prese nt Illness No Information Functional Status Date Functional Assessmen t No Information Instructions Date Instruction Additional Infor mation Diet education Related to Body mass index (BMI) 28.0-28.9, adult Giving Encouragement to exercise Related to Body mass index (BMI) 28.0-28.9, adult Lifestyle education Related to B codie mass index (BMI) 28.0-28.9, adult Compression stocking usage as conservative measure Related to Venous insufficiency (chronic) (peripheral) Patient education booklet given Related to Venous insufficiency (chronic) (peripheral) Assessments Type Assessment Date assessment Localized edema assessment Cramp and spasm assessment Venous insufficiency (chronic) ( peripheral) assessment Restless legs syndrome Patient Care Teams Name Effective Dates (start - stop) Status Members No Information
[2025-02-27 20:32] VITALS: BP 135/85; PULSE 95; RESP 16; TEMP 36.2; O2SAT 99; BMI 27.8
--- NOTE | 2025-02-27 20:44 | ED.GENADULT ---
HPI - General Adult General Chief complaint: Dental/Oral Stated complaint: inflammation of tongue; raw X2 days Time Seen by Provider: 02/27/25 21:28 Source: patient Mode of arrival: ambulatory Limitations: no limitations History of Present Illness ED Provider: HPI narrative: Patient with a history of anxiety non specific complaints was seen by PCP 2 weeks ago for lesions on the tongue and given nystatin liquid comes here as she is still feel some roughness in the right side of the lateral margin of the tongue patient has no history of diabetes very anxious on arrival Related Data Home Medications ?Medication ?Instructions ?Recorded ?Confirmed albuterol sulfate 90 mcg/actuation 1 inh inhalation QID 08/19/21 01/14/25 aerosol inhaler cholecalciferol (vitamin D3) 25 25 mcg PO DAILY 08/19/21 01/14/25 mcg (1,000 unit) capsule ibuprofen 800 mg tablet 800 mg PO Q8H 08/19/21 01/14/25 ondansetron HCl 4 mg tablet 4 mg PO Q8H 08/19/21 01/14/25 fluticasone propionate 50 1 spray intranasal DAILY 02/10/22 01/14/25 mcg/actuation nasal spray,suspension mirtazapine 15 mg tablet 15 mg PO BEDTIME 02/10/22 01/14/25 multivitamin 1 tab PO DAILY 02/10/22 01/14/25 zesdqxddkewl-bxwbfqfu-mldk 1 tab PO DAILY 02/10/22 01/14/25 fumarate 7.5 mg-folic acid 400 mcg tablet pantoprazole 20 mg tablet,delayed 20 mg PO BID 02/10/22 01/14/25 release Previous Rx's ?Medication ?Instructions ?Recorded clonazepam 0.5 mg tablet 0.25 - 0.5 mg (0.5 - 1 x 0.5 mg) 04/07/22 PO BEDTIME PRN sleep 30 days #30 tabs omeprazole 20 mg capsule,delayed 20 mg PO BID 30 days #60 caps 04/24/22 release meclizine 25 mg tablet 25 mg PO TID PRN dizziness 14 days 12/11/22 #42 tabs lorazepam 0.5 mg tablet 0.25 - 0.5 mg (0.5 - 1 x 0.5 mg) 01/02/23 PO DAILY PRN anxiety/convulsion 14 days #5 tabs diphenhydramine HCl 25 mg tablet 25 - 50 mg (1 - 2 x 25 mg) PO TID 10/22/23 (Benadryl Allergy) PRN migraine headache 30 days #60 tabs oxcarbazepine 300 mg tablet 600 mg (2 x 300 mg) PO BID 30 days 09/07/24 #120 tabs rizatriptan 10 mg tablet 5 - 10 mg (0.5 - 1 x 10 mg) PO Q2H 10/01/24 PRN migraine headache 21 days #12 tabs acetazolamide 125 mg tablet 125 - 250 mg (1 - 2 x 125 mg) PO 10/16/24 Q6-8H PRN Air travel 7 days #30 tabs amitriptyline 10 mg tablet 40 mg (4 x 10 mg) PO BEDTIME 30 12/15/24 days #120 tabs galcanezumab-gnlm 120 mg/mL 120 mg subcut ONCE 30 days #1 mL 12/19/24 subcutaneous pen injector (Emgality Pen) propranolol 10 mg tablet 10 mg PO BID 30 days #60 tabs 01/14/25 cholecalciferol (vitamin D3) 1,250 1,250 mcg PO QWEEK 12 weeks #12 02/01/25 mcg (50,000 unit) capsule caps valbenazine 40 mg capsule 40 mg PO DAILY 30 days #30 caps 02/12/25 (Ingrezza) fluconazole 150 mg tablet 150 mg PO DAILY 1 dose #1 tab 02/27/25 Allergies Allergy/AdvReac Type Severity Reaction Status Date / Time No Known Allergies Allergy Verified 02/27/25 20:38 Review of Systems Review of Systems: Yes all other systems are reviewed and are negative PMFSH Past Medical History Medical History No known health problems Social History Social History Alcohol intake: never Patient Tobacco Use Status: Never used Tobacco Advance Directives: No Advance Directives Information Provided: No Do you have a plan to hurt others: No Plan Physical Exam ED Vital Signs: Vital Signs - 24 hr 02/27/25 20:32 02/27/25 22:17 Temperature 97.2 F 97.2 F Pulse Rate 95 95 Respiratory Rate 16 16 Blood Pressure 135/85 135/85 Pulse Oximetry 99 99 Oxygen Delivery Method Room Air Room Air BMI result Body Mass Index 27.8 Appearance: Alert. Oriented X3. No acute distress. Patient is very anxious Eyes: PERRLA, No Nystagmus ENT: Pharynx normal. Oral Mucosa moist no lesions seen in the tongue no oral lesion Neck: Normal inspection. Neck supple. CVS: Normal heart rate and rhythm. Pulses normal. Respiratory: No respiratory distress. Equal air entry bilateral, no wheezing/rales/rhonchi Abdomen: Soft and nontender. Bowel sounds are present, no mass palpable, no CVA tenderness Skin: Skin warm and dry. Normal skin color. Normal skin turgor. Extremities: No lower extremity edema. No calf tenderness Neuro: Oriented X 3. Course Course Course Narrative: RME: 39 yold female presents to the ED for multiple complaints. Patient's 1st complaint is raw dry tongue after procedure done 2 weeks ago. Patient states shows given nystatin as treatment but has gotten worse. Patient also states reports involuntary tongue and facial movements that has been new for the past couple of days. SARs strep labs ordered Medical Decision Making Medical Decision Making [facility] Narrative: No definite pathology was seen on the tongue patient is still claims that has roughness of the right lateral much of the tongue will refer patient to ENT meanwhile give it tablets of Diflucan as patient's said that she had whitish lesions earlier Lab Data [facility] Lab Attestation statement: I reviewed the patient's lab results. 02/27/25 21:33 02/27/25 21:33 Labs: Lab Results 02/27/25 Range/Units 21:33 WBC 8.6 (4.8-10.8) X10*3/uL RBC 3.78 L (4.20-5.50) X10*6/uL Hgb 11.9 L (12.0-16.0) g/dl Hct 35.1 L (37.0-47.0) % MCV 92.9 (80.0-98.0) fL MCH 31.5 (27.0-33.0) pg MCHC 33.9 (31.0-35.0) g/dl RDW 13.2 (11.0-16.0) % Plt Count 223 (160-400) X10*3/uL MPV 9.8 (9.4-12.3) fL Immature Gran % (Auto) 0.1 (0.0-0.4) % Neut % (Auto) 52.8 (45-73) % Lymph % (Auto) 39.4 (20-40) % Baca % (Auto) 6.4 (2-11) % Eos % (Auto) 0.9 (0-4) % Baso % (Auto) 0.4 (0-2) % Lymph # (Auto) 3.4 (1.2-4.9) X10*3/uL [place] # (Auto) 0.6 (0.1-1.2) X10*3/uL Eos # (Auto) 0.1 (0.0-0.4) X10*3/uL Baso # (Auto) 0.0 (0.0-0.2) X10*3/uL Abs Immat Gran (auto) 0.01 (0.00-0.03) X10*3/uL Absolute Neuts (auto) 4.5 (2.0-8.3) x10*3/uL Absolute Nucleated RBC 0.000 (0.0-0.012) X10*3/uL Nucleated RBC % (auto) 0.0 (0.0-0.2) /100WBC Sodium 142 (135-145) mmol/L Potassium 3.7 (3.3-5.1) mmol/L Chloride 111 H (96-108) mmol/L Carbon Dioxide 24 (22-29) mmol/L Anion Gap 11 L (12-20) BUN 8 L (9-16) mg/dL Creatinine 0.93 (0.5-1.4) mg/dL Estim Creat Clear Calc 81.3 Estimated GFR > 60 Random Glucose 100 (60-115) mg/dL Calcium 8.6 (8.4-10.2) mg/dL Magnesium 2.3 (1.6-2.6) mg/dL Total Bilirubin 0.1 (0.0-1.0) mg/dL AST 20 (5-31) U/L ALT 16 (0-31) U/L Alkaline Phosphatase 41 (39-117) U/L Total Protein 6.7 (6.5-8.0) g/dL Albumin 4.2 (3.5-5.0) g/dL Influenza Type A (PCR) NEGATIVE (Negative) Influenza Type B (PCR) NEGATIVE (Negative) RSV RNA Qual (PCR) NEGATIVE (Negative) SARS-CoV-2 RNA (RT-PCR) NEGATIVE (Negative) S. pyogenes GrpA NAVNEET Negative (Negative) Discharge Plan Discharge Clinical Impression: Tongue abnormality Patient Disposition: Home, Self-Care Instructions: Geographic Tongue (ED) Additional Instructions: salt water gargles as advised Diflucan as prescribed follow up with ENT if not better Prescriptions: New fluconazole 150 mg tablet 150 mg PO DAILY Qty: 1 0RF Rx Instructions: administer on day 1 of therapy No Action clonazepam 0.5 mg tablet 0.25 - 0.5 mg PO BEDTIME PRN (Reason: sleep) 30 Days Qty: 30 0RF Rx Instructions: administer 30 minutes before bedtime (do not take with Ambien or Lorazepam) omeprazole 20 mg capsule,delayed release(DR/EC) 20 mg PO BID 30 Days Qty: 60 1RF meclizine 25 mg tablet 25 mg PO TID PRN (Reason: dizziness) 14 Days Qty: 42 1RF lorazepam 0.5 mg tablet 0.25 - 0.5 mg PO DAILY PRN (Reason: anxiety/convulsion) 14 Days Qty: 5 1RF rizatriptan 10 mg tablet 5 - 10 mg PO Q2H PRN (Reason: migraine headache) 21 Days Qty: 12 3RF Rx Instructions: max 2 tabs per day or 4 tabs per week acetazolamide 125 mg tablet 125 - 250 mg PO Q6-8H MDD 6 tabs PRN (Reason: Air travel) 7 Days Qty: 30 1RF Rx Instructions: Start up to 24 hours before air travel. Emgality Pen 120 mg/mL pen injector 120 mg subcut ONCE 30 Days Qty: 1 6RF Rx Instructions: maintenance dose of 120 mg subcu q.month. [place] Approved 12/16/24-06/18/25 cholecalciferol (vitamin D3) 1,250 mcg (50,000 unit) capsule 1,250 mcg PO QWEEK 84 Days Qty: 12 1RF Ingrezza 40 mg capsule 40 mg PO DAILY 30 Days Qty: 30 3RF Rx Instructions: [place] APPROVED 02/12/25-08/15/25 pantoprazole 20 mg tablet,delayed release (DR/EC) 20 mg PO BID fluticasone propionate 50 mcg/actuation spray,suspension 1 spray intranasal DAILY mirtazapine 15 mg tablet 15 mg PO BEDTIME multivitamin Tablet 1 tab PO DAILY nqvlpnzd-gya-ijbn fum-folic ac 7.5 mg iron-400 mcg tablet 1 tab PO DAILY albuterol sulfate 90 mcg/actuation HFA aerosol inhaler 1 inh inhalation QID ibuprofen 800 mg tablet 800 mg PO Q8H cholecalciferol (vitamin D3) 25 mcg (1,000 unit) capsule 25 mcg PO DAILY ondansetron HCl 4 mg tablet 4 mg PO Q8H diphenhydramine HCl [Benadryl Allergy] 25 mg tablet 25 - 50 mg PO TID PRN (Reason: migraine headache) 30 Days Qty: 60 1RF oxcarbazepine 300 mg tablet 600 mg PO BID 30 Days Qty: 120 6RF propranolol 10 mg tablet 10 mg PO BID 30 Days Qty: 60 1RF amitriptyline 10 mg tablet 40 mg PO BEDTIME 30 Days Qty: 120 1RF Referrals: Eduard Almanzar [Physician, Ear, Nose, Throat] Referral Note: tongue lesion Interventions: ED Discharge Assessment Last Done: 02/27/25 22:17 Discharge Date/Time: 02/27/25 22:20 Print Language: Yi
--- OUTSIDE RECORDS SUMMARY | 2025-02-27 21:08 | XMS_ITS | Continuity of Care Document ---
Author Organization Formerly [facility]. If a dditional information is needed, contact Health Information Management at [phone] [place] [address] Phone Care Team Providers Care Filing Clerk Name Role Phone Unavailable Unavailable Unavailable Unavailable Unavailable Unavailable Unavailable Unavailable Unavailable Problems D18.02 Onset:05-Feb-2022 Comments:Onset Date: 20220205 K59.00 Onset:04-Feb-2022 Comments:Onset Date: 20220204 R42 Onset:01-Feb-2022 Comments:Onset Date: 20220201 G56.00(G56.00) Onset:31-Jan-2022 Comments:Onset Date: 20220131 D72.829(D72.829) Onset:31-Jan-2022 Comments:Onset [...]
--- OUTSIDE RECORDS SUMMARY | 2025-02-27 21:09 | XMS_ITS ---
Author Name [facility] Organization Unknown Encounters Encounter Type Encounter Reason Primary Diagnosis Location Date Ambulatory [facility] [place] 08/01/2023 Ambulatory [facility] 07/31/2023 Ambulatory [facility] [place] 07/31/2023
--- OUTSIDE RECORDS SUMMARY | 2025-02-27 21:09 | XMS_ITS | Clinical Summary ---
Author Organization [facility] Address [address] [place] [address] Phone Care Team Providers Care Community Support Worker Name Role Phone Bi Lewis Primary Care Provider [phone] Allergies No known active allergies Encounters Date Type Department Care Team Description 11/29/2024 7:18 PM EDT - 11/30/2024 12:13 AM EDT Emergency [facility] Emergency [address] [place] [address] Discharge Disposition: Home or Self Care from Last 3 Months Surgical History Surgery Date Site/Laterality Comments SECTION PROCEDURE: NE DELIVERY ONLY OTHER SURGICAL HISTORY PROCEDURE: NE DILATION & CURETTAGE DX&/THER NONOBSTETRIC CERVICAL BIOPSY W/ LOOP ELECTRODE EXCISION PROCEDURE: NE CONIZATION CERVIX W/WO D&C RPR ELTRD EXC Medical History Medical History Date Comments Anemia DX:Anemia Hypotension 2010 DX:Hypotension DUB (dysfunctional uterine bleeding) DX:DUB (dysfunctional uterine bleeding) Helicobacter pylori (H. pylori) infection DX:Helicobacter pylori (H. pylori) infection Esophageal reflux DX:Esophageal reflux Epigastric pain DX:Epigastric pa in Nausea and vomiting DX:Nausea an d vomiting Decreased appetite DX:Decreased appetite Gastritis DX:Gastritis Family History Medical History Relation Name Comments Other: murder Father Relation Name Status Comments Father Mother Alive Social History Tobacco Use Types Packs/Day Years Used Date Smoking Tobacco: Never Smokeless Tobacco: Never Alcohol Use Standard Drinks/Week Comments No 0 (1 standard drink = 0.6 oz pur e alcohol) Comments Unknown Sex and Gender Information Value Date Recorded Sex Assigned at Not on file Legal Sex Female 4:54 AM EST Gender Identity Not on file Sexual Orientation Not on file Obstetrics History Last Filed Vital Signs Vital Sign Reading Time Taken Comments Blood Pressure 118/83 11/29/2024 7:24 PM EDT Pulse 98 11/29/2024 7:24 PM EDT Temperature 36.8 C (98.2 F) 11/29/2024 7:24 PM EDT Respiratory Rate 18 11/29/2024 7:24 PM EDT Oxygen Saturation 98% 11/29/2024 7:24 PM EDT Inhaled Oxygen Concentration - - Weight 73.5 kg (162 lb) 11/29/2024 7:24 PM EDT Height 165.1 cm (5' 5 ) 11/29/2024 7:24 PM EDT Body Mass Index 26.96 11/29/2024 7:24 PM EDT Plan of Treatment Health Maintenance Due Date Last Done Comments COVID-19 Vaccine (#1) 1992 Pneumococcal Vaccine: Pediatrics (0 to 5 Years) and At-Risk Patients (6 to 49 Years) (1 of 2 - PCV) 2006 Hepatitis B Vaccines (3 of 3 - 19+ 3-dose series) 04/20/2019 11/29/2018, 10/18/2018 Hepatitis C Screening 07/16/2022 Social Influencers of Health Screening 07/16/2022 Cervical Cancer Screening: Pap Smear 10/04/2023 10/04/2020, 07/08/2018, 07/08/2018 IPV Vaccines (2 of 3 - Adult catch-up series) 12/10/2024 11/12/2024 Influenza Vaccine (#1) 2025 Depression Screening 09/16/2025 09/16/2024 DTaP,Tdap,and Td Vaccines (2 - Td or Tdap) 10/16/2028 10/16/2018 Cholesterol Screening (Lipid Panel) 11/15/2029 11/15/2024, 11/15/2024, 05/10/2023, Additional history exists HIV Screening Completed 10/16/2018 HIB Vaccines Aged Out No longer eligi ble based on patient's age to complete this topic HPV Vaccines Aged Out No longer eligi ble based on patient's age to complete this topic Hepatitis A Vaccines Aged Out No long er eligible based on patient's age to complete this topic MMR Vaccines Aged Out No longer eligi ble based on patient's age to complete this topic Meningococcal ACWY Vaccine Aged Out N o longer eligible based on patient's age to complete this topic Meningococcal B Vaccine Aged Out No l onger eligible based on patient's age to complete this topic RSV Immunization Patients Under 20 months Aged Out No longer eligible based on patient's age to complete this topic Varicella Vaccines Aged Out No longer eligible based on patient's age to complete this topic Procedures Procedure Name Priority Date/Time Associated Diagnosis Comments CBC WITH AUTO DIFFERENTIAL STAT 11/29/2024 7:56 PM EDT PROLACTIN STAT 11/29/2024 7:56 PM EDT MAGNESIUM STAT 11/29/2024 7:56 PM EDT BASIC METABOLIC PANEL STAT 11/29/2024 7:56 PM EDT CBC AND DIFFERENTIAL STAT 11/29/2024 7:56 PM EDT PAP SMEAR Routine 10/04/2020 from Last 3 Months or Most Recently Relevant to Health Maintenance Results * CBC auto differential (11/29/2024 7:56 PM EDT) WBC 8.1 4.8 - 10.8 K/mcL LAB HEMETOLOGY METHOD 11/29/2024 8:21 PM EDT [facility] RBC 4.20 3.80 - 4.80 M/mcL LAB HEMETOLOGY METHOD 11/29/2024 8:21 PM EDT [facility] Hemoglobin 12.9 11.5 - 16.0 g/dL LAB HEMETOLOGY METHOD 11/29/2024 8:21 PM EDT [facility] Hematocrit 40.0 35.0 - 47.0 % LAB HEMETOLOGY METHOD 11/29/2024 8:21 PM EDT [facility] MCV 94.8 79.0 - 98.0 FL LAB HEMETOLOGY METHOD 11/29/2024 8:21 PM EDT [facility] MCH 30.6 27.0 - 32.0 pcg LAB HEMETOLOGY METHOD 11/29/2024 8:21 PM EDT [facility] MCHC 32.3 32.0 - 37.0 g/dL LAB HEMETOLOGY METHOD 11/29/2024 8:21 PM [facility] RDW 13.2 11.0 - 15.0 % LAB HEMETOLOGY METHOD 11/29/2024 8:21 PM [facility] Platelets 230 130 - 400 K/mcL LAB HEMETOLOGY METHOD 11/29/2024 8:21 PM [facility] MPV 10.9 7.0 - 11.0 FL LAB HEMETOLOGY METHOD 11/29/2024 8:21 PM [facility] NRBC 0.0 <1.0 % LAB HEMETOLOGY METHOD 11/29/2024 8:21 PM [facility] NRBC Absolute 0.00 <0.10 K/mcL LAB HEMETOLOGY METHOD 11/29/2024 8:21 PM [facility] Neutrophils Relative 57.9 % LAB HEMETOLOGY METHOD 11/29/2024 8:21 PM [facility] Lymphocytes Relative 34.6 % LAB HEMETOLOGY METHOD 11/29/2024 8:21 PM [facility] Monocytes Relative 6.9 % LAB HEMETOLOGY METHOD 11/29/2024 8:21 PM [facility] Eosinophils Relative 0.2 % LAB HEMETOLOGY METHOD 11/29/2024 8:21 PM [facility] Basophils Relative 0.2 % LAB HEMETOLOGY METHOD 11/29/2024 8:21 PM [facility] Immature Granulocytes Relative 0.2 % LAB HEMETOLOGY METHOD 11/29/2024 8:21 PM [facility] Neutrophils Absolute 4.69 1.50 - 7.00 K/mcL LAB HEMETOLOGY METHOD 11/29/2024 8:21 PM EDT [facility] Lymphocytes Absolute 2.81 1.00 - 5.00 K/mcL LAB HEMETOLOGY METHOD 11/29/2024 8:21 PM EDT [facility] Monocytes Absolute 0.56 0.20 - 1.00 K/[facility] LAB HEMETOLOGY METHOD 11/29/2024 8:21 PM EDT [facility] Eosinophils Absolute 0.02 0.00 - 0.50 K/[facility] LAB HEMETOLOGY METHOD 11/29/2024 8:21 PM EDT [facility] Basophils Absolute 0.02 0.00 - 0.20 K/[facility] LAB HEMETOLOGY METHOD 11/29/2024 8:21 PM EDT [facility] Immature Granulocytes Absolute 0.02 0.00 - 0.03 K/[facility] LAB HEMETOLOGY METHOD 11/29/2024 8:21 PM EDT [facility] Blood Venous blood specimen / Unknown Venipuncture / Unknown 11/29/2024 7:56 PM EDT 11/29/2024 8:14 PM EDT us Curtis Mariee DO LAB BLOOD ORDERABLES Final Res ult [facility] [address] [place] [address], * Prolactin (11/29/2024 7:56 PM EDT) Prolactin 14.50 See Comment ng/mL LAB CHEMISTRY METHOD 11/29/2024 8:43 PM EDT [facility] Comment: Prolactin Reference Ranges (ng/mL) Non 2.2 - 30.3 8.1 - 347.6 Postmenopausal 0.7 - 31.5 Blood Venous blood specimen / Unknown Venipuncture / Unknown 11/29/2024 7:56 PM EDT 11/29/2024 8:14 PM EDT Curtis Mariee DO LAB BLOOD ORDERABLES Final Res ult [facility] [address] [place] [address], [place] [phone] * Magnesium (11/29/2024 7:56 PM EDT) Pathologist [facility] Magnesium 2.4 1.9 - 2.6 mg/dL LAB CHEMISTRY METHOD 11/29/2024 8:41 PM EDT [facility] Blood Venous blood specimen / Unknown Venipuncture / Unknown 11/29/2024 7:56 PM EDT 11/29/2024 8:14 PM EDT Curtis Mariee DO LAB BLOOD ORDERABLES Final Res ult Performing Organization Address [facility]/ZIP Co de Phone Number [facility] [address] [place] [address], [place] [phone] * (ABNORMAL) Basic metabolic panel (11/29/2024 7:56 PM EDT) [facility] Sodium 138 133 - 145 mmol/L LAB CHEMISTRY METHOD 11/29/2024 8:41 PM T [facility] Potassium 4.2 3.5 - 5.5 mmol/L LAB CHEMISTRY METHOD 11/29/2024 8:41 PM T [facility] Chloride 105 96 - 110 mmol/L LAB CHEMISTRY METHOD 11/29/2024 8:41 PM [facility] CO2 30 21 - 32 mmol/L LAB CHEMISTRY METHOD 11/29/2024 8:41 PM T [facility] Anion Gap 3 3 - 11 LAB CHEMISTRY METHOD 11/29/2024 8:41 PM [facility] Glucose 106(H) 70 - 100 mg/dL LAB CHEMISTRY METHOD 11/29/2024 8:41 PM T [facility] BUN 6 5 - 25 mg/dL LAB CHEMISTRY METHOD 11/29/2024 8:41 PM EDT [facility] Creatinine 0.89 0.50 - 1.10 mg/dL LAB CHEMISTRY METHOD 11/29/2024 8:41 PM EDT [facility] eGFR 86 >=60 mL/min/1. 73m2 LAB CHEMISTRY METHOD 11/29/2024 8:41 PM EDT [facility] Comment:Calculation based on the Chronic Kidney Disease Epidemiology Collaboration (CKD-EPI) equation refit without adjustment for race. BUN/Creatinine Ratio 6.7 LAB CHEMISTRY METHOD 11/29/2024 8:41 PM EDT [facility] Calcium 9.4 8.5 - 10.5 mg/dL LAB CHEMISTRY METHOD 11/29/2024 8:41 PM EDT [facility] Blood Venous blood specimen / Unknown Venipuncture / Unknown 11/29/2024 7:56 PM EDT 11/29/2024 8:14 PM EDT us Curtis Mariee DO LAB BLOOD ORDERABLES Final Res ult [facility] [address] [place] [address], * Pap smear (10/04/2020) 10/04/2020 Narrative HISTORICAL TESTING LAB RESULTING AGENCY - 10/08/2020 11:46 AM EST [id number] THINPREP PAP, IMAGED: NEGATIVE FOR SQUAMOUS INTRAEPITHELIAL LESION AND MALIGNANCY . MARQUEZ JARRETT(ASCP) (CASE ELECTRONICALLY SIGNED 10 08 2020) RESULT OF APTIMA HIGH RISK HPV ASSAY: HIGH RISK HPV: NEGATIVE (SEROTYPES 16,18,31,33,35,39,45,51,52,56,58,59,66,68) COMPLETED ON 2020-10-07 ADEQUACY: SATISFACTORY ENDOCERVICAL/TRANSFORMATION ZONE COMPONENT ABSENT. SOURCE: THINPREP PAP HPV ANY DX: REFLEX 16 AND 18, CERVICAL, IMAGED CLINICAL INFORMATION: HPV ANY DIAGNOSIS. HORMONES, PAP HX NEG, 2018, Z12.4 us Aubree Null DO LAB CYTOLOGY ORDERABLES Final Result HISTORICAL TESTING LAB RESULTING AGENCY from Last 3 Months or Most Recently Relevant to Health Maintenance Insurance MEDICAID - [place] Care Teams Community Support Worker Relationship Specialty Start Date End Date Bi Lewis PA PCP - General Internal Medicine 06/26/18
--- OUTSIDE RECORDS SUMMARY | 2025-02-27 21:09 | XMS_ITS | Clinical Summary ---
Author Organization [facility] Address [address] [address] Phone Care Team Providers Care Corporate Receptionist Name Role Phone Unknown, Unknown Primary Care Provider Ta barnes Social History Tobacco Use Types Packs/Day Years Used Date Smoking Tobacco: Never Assessed Education Answer Date Recorded Are you interested in more education? Not on ailyn e 03/16/2023 Are you concerned about learning? Not on file 03/16/2023 No 03/16/2023 No 03/16/2023 Digital Access Answer Date Recorded No 03/16/2023 No 03/16/2023 Reliable internet access at home? Not on file 03/16/2023 Device with a working camera? Not on file Comments Unknown Sex and Gender Information Value Date Recorded Sex Assigned at Female 03/19/2023 8:44 AM EDT Legal Sex Female 9:01 AM EDT Gender Identity Female 03/19/2023 8:44 AM EDT Sexual Orientation Straight 03/19/2023 8: 44 AM EDT Plan of Treatment Health Maintenance Due Date Last Done Comments DEPRESSION SCREENING 1999 SMOKING Hx and SMOKELESS TOB ACCO SCREENING 2000 HEPATITIS C SCREENING 2005 HIV ONE-TIME SCREENING (18-6 5 YEARS) 2005 PAP SMEAR 2008 COVID-19 VACCINE (2023-2 5 season) 2024 Adult Td,Tdap Booster 10/16/2028 10/16/2018 HEPATITIS A VACCINES Aged Out No long er eligible based on patient's age to complete this topic HIB VACCINES Aged Out No longer eligi ble based on patient's age to complete this topic MENINGOCOCCAL VACCINES (ACWY) Aged Out No longer eligible based on patient's age to complete this topic MENINGOCOCCAL VACCINES (B) Aged Out N o longer eligible based on patient's age to complete this topic PNEUMOCOCCAL VACCINES (0-49 years) Aged Out No longer eligible based on patient's age to complete this topic Medical Devices Not on file [place] [address] [place] [address] [place] [address] [place] [address] C[employer] [facility] C3 A[employer] Care Teams Corporate Receptionist Relationship Specialty Start Date End Date Unknown, Unknown, PCP - General 02/16/23 Additional Source Comments The information contained in this document represents components of the legal health record. It is not the complete legal health record.[facility]
[2025-02-27 21:38] LABS: MANUAL DIFF FLAG NO
[2025-02-27 21:40] LABS: Hematocrit 35.1 % (37.0-47.0); Hemoglobin 11.9 g/dl (12.0-16.0); Imm Gran Abs Auto 0.01 X10*3/uL (0.00-0.03); Imm Gran Pct Auto 0.1 % (0.0-0.4); Lymphocytes Absolute Auto 3.4 X10*3/uL (1.2-4.9); Mean Corpuscular HGB Conc 33.9 g/dl (31.0-35.0); Mean Corpuscular Hemoglobin 31.5 pg (27.0-33.0); Mean Corpuscular Volume 92.9 fL (80.0-98.0); NRBC Abs Auto 0.000 X10*3/uL (0.0-0.012); NRBC Pct Auto 0.0 /100WBC (0.0-0.2); Platelet Count 223 X10*3/uL (160-400); Red Blood Count 3.78 X10*6/uL (4.20-5.50); White Blood Count 8.6 X10*3/uL (4.8-10.8)
[2025-02-27 21:49] LABS: IDNOW Serial# 6674DD1D; Strep A Nucleic Acid Negative (Negative)
[2025-02-27 21:54] LABS: Alanine Aminotransferase 16 U/L (0-31); Albumin Level 4.2 g/dL (3.5-5.0); Alkaline Phosphatase 41 U/L (39-117); Anion Gap 11 (12-20); Aspartate Amino Transferase 20 U/L (5-31); Blood Urea Nitrogen 8 mg/dL (9-16); Calcium 8.6 mg/dL (8.4-10.2); Carbon Dioxide 24 mmol/L (22-29); Chloride 111 mmol/L (96-108); Creatinine Clr Calc Pharmacy 81.3; Estimated Glomerular Filt Rate > 60; Magnesium 2.3 mg/dL (1.6-2.6); Potassium 3.7 mmol/L (3.3-5.1); Sodium 142 mmol/L (135-145); Total Protein 6.7 g/dL (6.5-8.0)
[2025-02-27 22:17] VITALS: BP 135/85; PULSE 95; RESP 16; TEMP 36.2; O2SAT 99
--- NOTE | 2025-02-27 22:17 | PC.NURSE ---
pt left prior to D/C paperwork and vitals.
[2025-02-27 22:18] LABS: Resp Syncy Virus RNA Qual PCR NEGATIVE (Negative); SARS COV2 PCR INHOUSE NEGATIVE (Negative)
== END 2025-02-27 22:20 | disposition home or self-care (01) ==
PROVIDERS: Physician Assistant; Emergency Provider Internal Medicine; PCP Surgery
DX: Q38.3 Other congenital malformations of tongue (principal); Z03.818 Encounter for observation for suspected exposure to other biological agents ruled out
CPT/HCPCS: 80053; 83735; 85025; 87637; 87651; 99282; 99283

== ENCOUNTER 2025-03-24 12:53 | Outpatient (AMB) | payer MEDICAID, SELFPAY ==
--- NOTE | 2025-03-24 12:52 | A.OFFVIS_ITS ---
Intake Visit Reasons: Follow up Intake Note: Pt presents as a telehealth for a follow up for migraines/tremors. Adoption Services Manager Required: Yes Adoption Services Manager Language: Faroese Accompanied by: Self / Same As Patient Allergies No Known Allergies Allergy (Verified 03/24/25 12:52) Medication List - Last Reconciled 03/24/25 by AMIRAH Preciado acetazolamide 125 - 250 mg (1 - 2 x 125 mg) PO Q6-8H PRN 7 days MDD 6 tabs albuterol sulfate 90 mcg/actuation 1 inh inhalation QID amitriptyline 40 mg (4 x 10 mg) PO BEDTIME 30 days cholecalciferol (vitamin D3) 25 mcg PO DAILY cholecalciferol (vitamin D3) 1,250 mcg PO QWEEK 12 weeks clonazepam 0.25 - 0.5 mg (0.5 - 1 x 0.5 mg) PO BEDTIME PRN 30 days diphenhydramine HCl (Benadryl Allergy) 25 - 50 mg (1 - 2 x 25 mg) PO TID PRN 30 days fluconazole 150 mg PO DAILY 1 dose fluticasone propionate 50 mcg/actuation 1 spray intranasal DAILY galcanezumab-gnlm (Emgality Pen) 120 mg subcut ONCE 30 days ibuprofen 800 mg PO Q8H lorazepam 0.25 - 0.5 mg (0.5 - 1 x 0.5 mg) PO DAILY PRN 14 days meclizine 25 mg PO TID PRN 14 days mirtazapine 15 mg PO BEDTIME ylqvykot-ayr-fpeh fum-folic ac 7.5 mg iron-400 mcg 1 tab PO DAILY multivitamin 1 tab PO DAILY omeprazole 20 mg PO BID 30 days ondansetron HCl 4 mg PO Q8H oxcarbazepine 600 mg (2 x 300 mg) PO BID 30 days pantoprazole 20 mg PO BID propranolol 10 mg PO BID 30 days rizatriptan 5 - 10 mg (0.5 - 1 x 10 mg) PO Q2H PRN 21 days valbenazine (Ingrezza) 40 mg PO DAILY 30 days HPI Comments Details: 39-year-old female presents for urgent follow-up tele-video visit due to new insomnia symptoms. Patient reports that since stopping amitriptyline in January, she has not been able to sleep at night.? She has tried various OTC agents without effect, including Benadryl. ?She would like to retry amitriptyline if possible. She notes that the involuntary facial movements have subsided somewhat; some days are worse than others.? She has not started valbenazine yet, as her pharmacy has not been able to fill it, though she is not sure why.? She does have some hesitations; 50 Ingrezza could cause an issue with her known intracranial cavernoma. She denies any current bothersome depression symptoms. 01/14/2025, previous HPI 39-year-old female presents for follow-up of recent new onset involuntary facial movements and bilateral hand tremors. apartment house manager: [id number]- present throughout visit to assist with translation as needed. Patient states that her involuntary facial and arm tremor are progressing, now are constant but still with varying intensity. She is noticing that her face can look puffy or purplish. She states she continues to have word-finding difficulties, word swapping difficulties. These movements bother her it makes her more anxious, and make her family nervous as well. She states she has not had a full convulsive syncopal episode and quite some time. Patient states she will have the labs ordered at the last visit done today after this appointment. She is scheduled for the EEG tomorrow. She has reduce the amitriptyline from 50 mg to 40 mg daily bedtime, and then stopped it completely a few days ago without apparent adverse effect. She states she did not realize that she should wean off of this little bit more slowly. She states her PCP started her on ? Benztropine twice a day which she feels is helping some. She is still having episodes of the newer nocturnal headache, which she states fortunately only last couple of sec even though it is very very strong and severe. This headache may occur 1-3 times in the night, but overall she has had about 7 attacks of this in the last month. She did not start Propranolol yet. 12/15/2024, previous HPI: Patient reports a couple of weeks ago, she started having involuntary facial movements and BUE rest and action tremor. Initially, this was mild and she did not even notice it just her family noted. However, the involuntary movements and tremor persisted and steadily became obvious in more bothersome to patient. She also notes at that time, she is having increased headaches, episodes of speaking slowly and word swapping, thigh rash, hands and legs paring purplish. Then, she had an approximately 1 minute long typical convulsive episode and elevated BP- up to 140/80s- though she notes she is normally low normotensive or hypotensive. On 11/29/24, patient states she went to [facility] ER to have the new onset involuntary movements and tremors evaluated, however per ER note, she was evaluated for convulsive episode, considered to be typical for her known nonepileptic convulsive disorder, and was discharged home on her usual home medication regimen and advised to follow-up with Neurology here. Since, patient has continued to have these constant involuntary lip, buccal, jaw movements, as well as BUE rest and action tremor. She states these are constant, however varying intensity. She states overall she also feels that her lower legs feel more numb than usual. She is having dizziness and lightheadedness, bilateral tinnitus. She continues to have frequent migraine, note she is overdue for her Emgality- states pharmacy need something from us. She denies any TMJ tightness or neck symptoms. She denies any recent changes in her medications. Denies taking any OTC supplements. She denies history of neuroleptic use, metoclopramide use, or psychiatric hospitalization. She denies recent dental work. [facility] Medical History No known health problems Social History Alcohol intake: never Patient Tobacco Use Status: Never used Tobacco Physical Exam Const General: cooperative and no acute distress Orientation/consciousness: patient oriented x3 Resp Effort & Inspection: normal respiratory effort and able to speak in complete sentences Neuro Other: Mild intermittent left cheek involuntary movement General: patient oriented x3 and gait normal Cranial nerves: Yes Normal facial strength present Cognition (Neuro): normal cognition Psych Appearance: grossly normal Mental Status: mental status grossly normal Speech and movement: Clear speech present Affect: normal affect Attitude: cooperative Telehealth Telehealth Telehealth Platform: [facility] Location of provider rendering services: practice address Location of patient: address on file Patient Identification confirmed using: Name, : Yes Telehealth method: video Patient verbally consented to treatment: Yes Patient verbally consented to billing insurance company: Yes Patient informed of any privacy concerns related to visit: Yes Minutes spent on Phone/Video with Pt.: 28 Assessment & Plan Assessment & Plan (1) Abnormal involuntary movements: Comment: Facial Code(s): R25.9 - Unspecified abnormal involuntary movements Category: Medical (2) Tremor: Comment: BUE action and rest Code(s): R25.1 - Tremor, unspecified Category: Medical (3) Tarsal tunnel syndrome, bilateral: Code(s): G57.53 - Tarsal tunnel syndrome, bilateral lower limbs Category: Medical (4) Migraine without aura: Code(s): G43.009 - Migraine without aura, not intractable, without status migrainosus Category: Medical Qualifiers: Status migrainosus presence: without status migrainosus Intractability: not intractable Qualified Code(s): G43.009 - Migraine without aura, not intractable, without status migrainosus (5) Convulsions: Comment: [place] 2022[place] MRI showed 9mm cerebellar hemangioma. Evaluated by [facility]- Video EEG results c/w Non-Epileptic Convulsions Code(s): R56.9 - Unspecified convulsions Category: Medical Qualifiers: Convulsion type: unspecified Qualified Code(s): R56.9 - Unspecified convulsions (6) Nocturnal headaches: Code(s): R51.9 - Headache, unspecified Category: Medical Plan For insomnia: She may retry amitriptyline at lower dose of 10 mg q.h.s. times 1-2 weeks, may increase to 20 mg daily. * Patient advised to monitor closely for increase or exacerbation of involuntary facial movements. * Do not start valbenazine until she knows how she is tolerating resuming amitriptyline Reviewed simple sleep hygiene practices to optimize sleep: * Continue drinking caffeine/copy only in the morning * Increase physical activity, with the goal of at least 30 minutes daily every day * Maintain a consistent wake up scheduled For facial involuntary movements and BUE tremor, which are distinct from her baseline nonepileptic compulsions symptoms: Reviewed EEG- unremarkable * We had considered having patient undergo a 72 hour EEG, however this has not yet been completed due to transportation issues Reviewed labs, which were unremarkable other than vitamin-D deficiency, patient's vitamin-D supplement has been adjusted accordingly. We will follow-up with pharmacy on status of valbenazine order. Patient has stopped benztropine-ordered by PCP. Patient denies any history of neuroleptic or dopamine blocking medication use. 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 Start Propranolol 10 mg twice a day- as this may also help tremor and anxiety as well.- advised to notify us if she develops any signs of orthostatic lightheadedness, worsening dizziness. If patient tolerates this, we may consider low-dose propranolol ER. Had consider trial of indomethacin q.h.s., however patient is wary to use NSAIDs due to the presence of the cavernous hemangioma. Also had discussed trying caffeine q.h.s., however patient has previously worried this would further interfere with her sleep quality. For convulsions: [facility]- VEEG results c/w non-epileptic convulsions. Pt is f/b therapist. Could consider referral to a functional neurological disorder clinic. Continue Trileptal 600mg bid- for mood and headaches as well. Lorazepam 0.25-0.5mg at onset of convulsion s/s. ? For BLE tarsal tunnel syndrome a/w BLE pain: Review of [facility] shows patient has not filled Gabapentin in multiple months.. BLE EMG/NCS-stable bilateral moderate tibial neuropathy. Future considerations: referring back to [facility] or [facility] orthopedics appt for 2nd ortho opinion-previously requested.. For BUE paresthesias, swelling, hand weakness, R > L: BUE EMG/NCS- normal. Hold previous vascular consult for now pending review of above. ? For migraine headache: Continue Emgality as patient had greater than 50% reduction in monthly migraine days with use- we will check with pharmacy to determine why this is not being filled. Continue Emgality 120mg sc q month for migraine prevention. Patient has stopped Amitriptyline 50mg qhs- continue to hold Continue Sumatriptan 100mg prn, may adjunct w/ Tylenol. Patient has been provided a prn order for Acetazolamide to prevent air travel induced migraine attack. Acetazolamide 125-250 mg every 6-8 hours starting the day before air travel through up to the day following air travel. Contraindications: Aimovig d/t pt has leg cramps. Beta-blockers d/t hypotension/convulsions/syncope. NSAIDs/Indomethacin- per BM advice. Note however that cavernoma itself is not an absolute contraindication for NSAIDs. ?? For dizziness: Zofran prn. ? Follow-up as scheduled Medications: Changed From amitriptyline 40 mg (4 x 10 mg) PO BEDTIME 30 days 120 tabs 1RF To amitriptyline 10 - 20 mg (1 - 2 x 10 mg) PO BEDTIME 60 tabs 1RF 30 days Coding Level of Care Code Tele Est Pt Level 4 (31505) Diagnoses Abnormal involuntary movements R25.9 Tremor R25.1 Tarsal tunnel syndrome, bilateral G57.53 Migraine without aura and without status migrainosus, not intractable G43.009 Status migrainosus presence: without status migrainosus Intractability: not intractable Convulsions, unspecified convulsion type R56.9 Convulsion type: unspecified Nocturnal headaches R51.9
--- OUTSIDE RECORDS SUMMARY | 2025-03-24 13:33 | XMS_ITS | Continuity of Care Document ---
Author Organization [facility]. If a dditional information is needed, contact Health Information Management at [phone] Address [address] [place] [address] Phone Care Team Providers Care Case Operator Name Role Phone Unavailable Unavailable Unavailable Unavailable [...]
--- OUTSIDE RECORDS SUMMARY | 2025-03-24 13:35 | XMS_ITS | Clinical Summary ---
Author Organization [facility] Address [address] [place] [address] Phone Care Team Providers Care Special Machine Operator Name Role Phone Bi Lewis Primary Care Provider [phone] Allergies No known active allergies Surgical History Surgery Date Site/Laterality Comments SECTION PROCEDURE: VT DELIVERY ONLY OTHER SURGICAL HISTORY PROCEDURE: VT DILATION & CURETTAGE DX&/THER NONOBSTETRIC CERVICAL BIOPSY W/ LOOP ELECTRODE EXCISION PROCEDURE: VT CONIZATION CERVIX W/WO D&C RPR ELTRD EXC [...] Health Maintenance Due Date Last Done Comments Hepatitis B Vaccines (3 of 3 - 19+ 3-dose series) 04/20/2019 11/29/2018, 10/18/2018 Hepatitis C Screening 07/16/2022 Social Influencers of Health Screening 07/16/2022 Cervical Cancer Screening: Pap Smear 10/04/2023 10/04/2020, 07/08/2018, 07/08/2018 COVID-19 Vaccine ( - season) 2024 Depression Screening 08/13/2024 IPV Vaccines (2 of 3 - Adult catch-up series) 12/10/2024 11/12/2024 Influenza Vaccine (#1) 2025 DTaP,Tdap,and Td Vaccines (2 - Td or [...] on patient's age to complete this topic Pneumococcal Vaccine: Pediatrics (0 to 5 Years) and At-Risk Patients (6 to 49 Years) Aged Out No longer eligible based on patient's age to complete this topic RSV Immunization Patients Under 20 months Aged Out No longer eligible based on patient's age to complete this topic Varicella Vaccines Aged Out No longer eligible based on patient's age to complete this topic Procedures Procedure Name Priority Date/Time Associated Diagnosis Comments PAP SMEAR Routine 10/04/2020 from Last 3 Months or Most Recently Relevant to Health Maintenance Results * Pap smear (10/04/2020) 10/04/2020 Narrative HISTORICAL TESTING LAB RESULTING AGENCY - 10/08/2020 11:46 AM EST [id number] THINPREP PAP, IMAGED: NEGATIVE FOR SQUAMOUS INTRAEPITHELIAL [...] DIAGNOSIS. HORMONES, PAP HX NEG, 2018, Z12.4 Aubree Null DO LAB CYTOLOGY ORDERABLES Final Result HISTORICAL TESTING LAB RESULTING AGENCY from Last 3 Months or Most Recently Relevant to Health Maintenance Insurance MEDICAID - [place] Care Teams Special Machine Operator Relationship Specialty Start Date End Date Bi Lewis PA PCP - General Internal Medicine 06/26/18
--- OUTSIDE RECORDS SUMMARY | 2025-03-24 13:35 | XMS_ITS | Clinical Summary ---
Author Organization [facility] Address [address] [address] Phone Care Team Providers Care Mixing And Molding Machine Operator Name Role Phone Unknown, Unknown Primary Care [...] topic Medical Devices Not on file [place] [address] [place] [address] [place] [address] [place] [address] C3 ACO [facility] C3 ACO Care Teams Mixing And Molding Machine Operator Relationship Specialty Start Date End Date Unknown, Unknown, PCP - General 02/16/23 Additional Source Comments The information contained in this document represents components of the legal health record. It is not the complete legal health record.[facility]
--- OUTSIDE RECORDS SUMMARY | 2025-03-24 13:35 | XMS_ITS | Clinical Summary ---
Author Organization [facility] Address [address] [place] [address] Care Team Providers Care Stunner Animal Name Role Phone Unavailable Primary Care Provider Unavailabl e Encounters Date Type Department Care Team Description 03/03/2025 Population Health Risk Score [facility] (C3) Department [address] [facility] [address] [place] [address] Provider, Population Health Generic from Last 3 Months Social History Tobacco Use Types Packs/Day Years Used Date Smoking Tobacco: Never Assessed Comments Unknown Sex and Gender Information Value Date Recorded Sex Assigned at Not on file Legal Sex Female 9:19 PM EDT Gender Identity Not on file Sexual Orientation Not on file Plan of Treatment Health Maintenance Due Date Last Done Comments Depression Screening 1987 HIV Screening 1987 SDOH Screening 1987 Disability Screening 1987 Alcohol/Substance Use Screening 1999 Tobacco Screening 1999 Family Planning (PISQ) 2002 HPV Vaccines (1 - 3-dose series) 2002 Hepatitis C Screening 2005 DTaP/Tdap/Td Vaccines (1 - Tdap) 2006 Hepatitis B Vaccines (1 of 3 - 19+ 3-dose series) 2006 Pap Smear 2008 Cervical Cancer Screening 2017 HPV/Cotest 2017 COVID-19 Vaccine ( - 2023-2 5 season) 2024 Influenza Vaccine (#1) 2025 Zoster Vaccines (1 of 2) 2037 RSV Patients and Pa tients Aged 60 years or older (1 - 1-dose 75+ series) 2062 HIB Vaccines Aged Out No longer eligi ble based on patient's age to complete this topic Hepatitis A Vaccines Aged Out No long er eligible based on patient's age to complete this topic IPV Vaccines Aged Out No longer eligi ble based on patient's age to complete this topic Meningococcal B Vaccine Aged Out No l onger eligible based on patient's age to complete this topic Meningococcal Vaccine Aged Out No frankie fernanda eligible based on patient's age to complete this topic Pneumococcal Vaccine: Pediat rics (0 to 5 Years) and At-Risk Patients (6 to 49) Years Aged Out No longer eligible b ased on patient's age to complete this topic RSV under 20 months Aged Out No longe r eligible based on patient's age to complete this topic Rotavirus Vaccines Aged Out No longer eligible based on patient's age to complete this topic
--- OUTSIDE RECORDS SUMMARY | 2025-03-24 13:35 | XMS_ITS | Encounter Summary ---
Author Organization [facility] Address [address] [place] [address] Care Team Providers Care Warp Coiler Name Role Phone GennyHerve fleder AMIRAH Primary Care Provider [phone] Encounter Details Date Type Department Care Team (Late st Contact Info) Description 03/22/2025 Results Follow-Up [address] [address] Elle Wick DO [address] [place] [address] Social History Tobacco Use Types Packs/Day Years Used Date Smoking Tobacco: Never Passive Smoke Exposure: Never Smokeless Tobacco: Never Alcohol Use Standard Drinks/Week Comments No 0 (1 standard drink = 0.6 oz pur e alcohol) Social Connections Answer Date Recorded How often do you feel lonely or isolated from th ose around you? 1 09/16/2024 Financial Resource Strain Answer Date R ecorded Hard to pay for: Food 1 09/16/2024 Stress Answer Date Recorded Do you feel these kinds of stress these days? 1 09/16/2024 Physical Activity Answer Date Recorded Physical Activity 0 04/07/2019 Food Insecurity Answer Date Recorded Hard to pay for: Food 1 09/16/2024 Transportation Needs Answer Date Record ed Hard to pay for: Transportation 1 09/16/2024 Housing Stability Answer Date Recorded Hard to pay for: Rent/Mortgage payment 1 09/16/2024 Safety and Environment Answer Date Say rded Safety 0 08/02/2023 Utilities Answer Date Recorded Hard to pay for: Utilities 1 09/16 Employment Answer Date Recorded Employment 0 04/07/2019 [...] on file documented as of this encounter Plan of Treatment Upcoming Encounters Date Type Department Care Team (Late st Contact Info) Description 03/24/2025 3:40 PM EDT Office Visit [facility] [address] [place] [address] Goodman-Horta, Jones, DDS [address] [place] [address] 04/09/2025 4:00 PM EDT Office Visit [facility] [address] [place] [address] Formisano, Elle, DO [address] [place] [address] documented as of this encounter Visit Diagnoses Not on filedocumented in this encounter Additional Health Concerns Assessment Noted Time PHQ-9 Depression Total Score: 0 02/11/20 25 11:11 AM PDT A Depression follow-up plan has been documented for the patient 01/08/2025 1:09 PM PDT documented as of this encounter Care Teams Warp Coiler Relationship Specialty Start Date End Date Herve Royal FNP [address] [place] [id number] PCP - General Family Medicine, STRIPPER OPAQUER 06/02/21 documented as of this encounter
== END 2025-03-24 14:03 | disposition home or self-care (01) ==
LOC: HO.HSMS 12:53
PROVIDERS: PCP Surgery; Visit Provider Nurse Practitioner Family
DX: R25.9 Unspecified abnormal involuntary movements (principal); R25.1 Tremor, unspecified; G57.53 Tarsal tunnel syndrome, bilateral lower limbs; G43.009 Migraine without aura, not intractable, without status migrainosus; R56.9 Unspecified convulsions; R51.9 Headache, unspecified
CPT/HCPCS: 99214

== ENCOUNTER 2025-07-02 15:27 | Outpatient (AMB) | payer MEDICAID, SELFPAY ==
--- NOTE | 2025-07-02 15:29 | A.OFFVIS_ITS ---
Vital Signs 07/02/25 15:30 Height 5 ft 4 in Weight 165 lb 8 oz BMI 28.4 BP 118/80 Blood Pressure Location Rt brachial Position Sitting Pulse 85 Pulse Source Pulse Oximeter Pulse Oximetry (%) 98 Oxygen Delivery Method Room Air Intake Visit Reasons: KH -Syncope/ elevated pulse Intake Note: Syncope and elevated heart rate Senior Financial Reporting Accountant Required: Yes Senior Financial Reporting Accountant Services: Senior Financial Reporting Accountant Present Senior Financial Reporting Accountant Name: Clive ID [id number] Accompanied by: Self / Same As Patient Allergies No Known Allergies Allergy (Verified 07/02/25 15:36) Medication List - Last Reconciled 07/02/25 by Pooja Arvizu MD acetazolamide 125 - 250 mg (1 - 2 x 125 mg) PO Q6-8H PRN 7 days MDD 6 tabs amitriptyline 10 - 20 mg (1 - 2 x 10 mg) PO BEDTIME 30 days cholecalciferol (vitamin D3) 25 mcg PO DAILY cholecalciferol (vitamin D3) 1,250 mcg PO QWEEK 12 weeks clonazepam 0.25 - 0.5 mg (0.5 - 1 x 0.5 mg) PO BEDTIME PRN 30 days diphenhydramine HCl (Benadryl Allergy) 25 - 50 mg (1 - 2 x 25 mg) PO TID PRN 30 days fluconazole 150 mg PO DAILY 1 dose fluticasone propionate 50 mcg/actuation 1 spray intranasal DAILY galcanezumab-gnlm (Emgality Pen) 120 mg subcut ONCE 30 days ibuprofen 800 mg PO Q8H lorazepam 0.25 - 0.5 mg (0.5 - 1 x 0.5 mg) PO DAILY PRN 14 days meclizine 25 mg PO TID PRN 14 days mirtazapine 15 mg PO BEDTIME multivitamin 1 tab PO DAILY omeprazole 20 mg PO BID 30 days ondansetron HCl 4 mg PO Q8H oxcarbazepine 600 mg (2 x 300 mg) PO BID 30 days rizatriptan 5 - 10 mg (0.5 - 1 x 10 mg) PO Q2H PRN 21 days valbenazine (Ingrezza) 40 mg PO DAILY 30 days HPI Comments Details: 40y/o female comes for 2 episodes of syncope recently . The first episode was 3 days ago -3 am woke up with [id number] body shaking followed by dizziness - sitting in bed, her home health aide helped her to restroom, she was clammy and passed out- her [employer] made her sit in the toilet and splashed water.It lasted few seconds. Then she helped her to the bed.she slept for 2 hrs.after taking meclizine The same day at 6am- she woke up with gen shaking ,dizzy , , sweating, passed out , had bowel movement - when she woke up she was still having some watery stools.Her [employer]AB[employer]ATION [employer] helped her with shower. No headaches No chest pain. she shows me a pic and says there was some drooping in her right face. Few days prior to the events that she woke up with few seconds of severe headaches. Reviewed her last neurology notes.migraines are better with emgality . EEG - normal PSG- 2022 normal [facility] Medical History (Updated 07/02/25 @ 16:12 by Pooja Arvizu MD) Syncope and collapse No known health problems Social History Alcohol intake: never Patient Tobacco Use Status: Never used Tobacco Physical Exam Vital Signs: Last Vital Signs Pulse 85 07/02/25 15:30 BP 118/80 07/02/25 15:30 Pulse Ox 98 07/02/25 15:30 Oxygen Delivery Method Room Air 07/02/25 15:30 BMI result Body Mass Index 28.4 Const Other: abnormal movements - chi n - mild General: cooperative and no acute distress Orientation/consciousness: patient oriented x3 Resp Effort & Inspection: normal respiratory effort and able to speak in complete sentences Neuro Other: mallampatti grade 4 General: patient oriented x3 and gait normal Cranial nerves: Yes Facial sensation intact/muscles of mastication intact, Yes Bilaterally intact EOM present, Yes Nystagmus not present, Yes Normal facial strength present, Yes Midline tongue present and Yes Ability to bilaterally elevate shoulders present Cognition (Neuro): normal cognition Gait exam (Neuro): Normal gait present Motor exam (neuro): 5/5 motor strength present throughout and Normal motor muscle tone present throughout Deep tendon reflexes (DTR's): Right triceps reflex intensity grade: 1+, Left triceps reflex intensity grade: 1+, Rt Biceps (C5, C6): 1+, Left biceps reflex intensity grade: 1+, Right brachioradialis reflex intensity grade: 1+, Left brachioradialis reflex intensity grade: 1+, Right patellar reflex intensity grade: 1+ and Left patellar reflex intensity grade: 1+ Coordination: [id number] test normal Psych Appearance: grossly normal Mental Status: mental status grossly normal Speech and movement: Clear speech present Affect: normal affect Attitude: cooperative Assessment & Plan Assessment & Plan (1) Syncope and collapse: Comment: Likely vasovagal - not sure they are seizures the LOC lasted seconds and she did not have a post ictal confusion Code(s): R55 - Syncope and collapse Category: Medical (2) Abnormal involuntary movements: Comment: Facial Code(s): R25.9 - Unspecified abnormal involuntary movements Category: Medical (3) Migraine without aura: Code(s): G43.009 - Migraine without aura, not intractable, without status migrainosus Category: Medical Qualifiers: Status migrainosus presence: without status migrainosus Intractability: not intractable Qualified Code(s): G43.009 - Migraine without aura, not intractable, without status migrainosus (4) Convulsions: Comment: January 2022: [place] [facility] [place] [facility] plane [place] in [place]. MRI showed 9mm cerebellar hemangioma. Evaluated by [facility]- Video EEG results c/w Non-Epileptic Convulsions Code(s): R56.9 - Unspecified convulsions Category: Medical Qualifiers: Convulsion type: unspecified Qualified Code(s): R56.9 - Unspecified convulsions Plan Suggests cardiac evaluation she has an appointment with [facility] in [place] in 2 weeks for opinion See our last notes for work up details Coding Level of Care Code Complex visit Add On G2211 Diagnoses Syncope and collapse R55 Abnormal involuntary movements R25.9 Migraine without aura and without status migrainosus, not intractable G43.009 Status migrainosus presence: without status migrainosus Intractability: not intractable Convulsions, unspecified convulsion type R56.9 Convulsion type: unspecified
[2025-07-02 15:30] VITALS: BP 118/80; PULSE 85; O2SAT 98; BMI 28.4
--- OUTSIDE RECORDS SUMMARY | 2025-07-02 20:36 | XMS_ITS | Clinical Summary ---
Author Organization [facility] Address [address] [place] [id number] Phone Care Team Providers Care Grief Counselor Name Role Phone Unknown, Unknown Primary Care [...] 8: 44 AM EDT Plan of Treatment Upcoming Encounters Date Type Department Care Team (Late st Contact Info) Description 07/29/2025 8:00 AM EST Office Visit [facility] [place] [address], [address] [place] [address] System, Provider Not In, [facility] [address] [address] Health Maintenance Due Date Last Done Comments DEPRESSION SCREENING 1999 SMOKING Hx and SMOKELESS TOB ACCO SCREENING 2000 HEPATITIS C SCREENING 2005 HIV ONE-TIME SCREENING (18-6 5 YEARS) 2005 PAP SMEAR 2008 INFLUENZA VACCINE (#1) 2025 COVID-19 VACCINE (1 - 2024-2 6 season) 2025 Adult Td,Tdap Booster 10/16/2028 10/16/2018 HEPATITIS A [...] this topic Medical Devices Not on file Procedures Procedure Name Priority Date/Time Associated Diagnosis Comments OUTSIDE LAB 05/22/2025 OUTSIDE IMAGING 05/22/2025 OUTSIDE IMAGING 05/22/2025 from Last 3 Months Results * Outside Imaging Report Only (05/22/2025) us Scanning Interface Provider IMG XR CHEST Mila l Result * Outside Imaging Report Only (05/22/2025) us Scanning Interface Provider IMG XR CHEST Mila l Result * Outside Lab (05/22/2025) us Scanning Interface Provider LAB BLOOD BKR ORDERA BLES Final Result from Last 3 Months Insurance [facility] [address] [place] [address] [place] [address] [place] [place] [address] [employer] [facility] [employer] [facility] [employer] Care Teams Grief Counselor Relationship Specialty Start Date End Date Unknown, Unknown, PCP - General 02/16/23 Additional Source Comments The information contained in this document represents components of the legal health record. It is not the complete legal health record.[facility]
--- OUTSIDE RECORDS SUMMARY | 2025-07-02 20:36 | XMS_ITS | Clinical Summary ---
Author Organization [employer] Address [address] [place] [address] [address] [place] [address] Care Team Providers Care Farm Adviser Name Role Phone Unavailable Primary Care Provider Unavailabl e Social History Tobacco Use Types Packs/Day Years Used Date Smoking Tobacco: Never Assessed Comments Unknown Sex and Gender Information Value Date Recorded Sex Assigned at Not on file Legal Sex Female 9:19 PM EDT Gender Identity Not on file Sexual Orientation Not on file Plan of Treatment Health Maintenance Due Date Last Done Comments Depression Screening 1987 Lipid Panel 1987 SDOH Screening 1987 Disability Screening 1987 Alcohol/Substance Use Screening 1999 Tobacco Screening 1999 Family Planning (PISQ) 2002 HPV Vaccines (1 - 3-dose series) 2002 Hepatitis C Screening 2005 Pap Smear 2008 Cervical Cancer Screening 2017 HPV/Cotest 2017 Hepatitis B Vaccines (3 of 3 - 19+ 3-dose series) 04/20/2019 11/29/2018, 10/18/2018 IPV Vaccines (2 of 3 - Adult catch-up series) 12/10/2024 11/12/2024 COVID-19 Vaccine (1 - 2024-2 6 season) 2025 Influenza Vaccine (#1) 2025 DTaP/Tdap/Td Vaccines (2 - T d or Tdap) 10/16/2028 10/16/2018 Zoster Vaccines (1 of 2) 2037 RSV Patients and Patients Aged 60 years or older (1 - 1-dose 75+ series) 2062 HIV Screening Completed 10/16/2018 HIB Vaccines Aged [...]
--- OUTSIDE RECORDS SUMMARY | 2025-07-02 20:36 | XMS_ITS | Clinical Summary ---
Author Organization [facility] Address [address] [place] [address] Phone Care Team Providers Care Wharf Tally Clerk Name Role Phone Bi Lewis Primary Care Provider [phone] Allergies No known active allergies Surgical History Surgery Date Site/Laterality Comments SECTION PROCEDURE: [place] DELIVERY ONLY OTHER SURGICAL HISTORY PROCEDURE: [place] DILATION & CURETTAGE DX&/THER NONOBSTETRIC CERVICAL BIOPSY W/ LOOP ELECTRODE EXCISION PROCEDURE: [place] CONIZATION CERVIX W/WO D&C RPR ELTRD EXC [...] Health Maintenance Due Date Last Done Comments HPV Vaccines (1 - 3-dose SCDM series) 2014 Hepatitis B Vaccines (3 of 3 - 19+ 3-dose series) 04/20/2019 11/29/2018, 10/18/2018 Hepatitis C Screening 07/16/2022 Social Influencers of Health Screening 07/16/2022 Cervical Cancer Screening: Pap Smear 10/04/2023 10/04/2020, 07/08/2018, 07/08/2018 Depression Screening 08/13/2024 IPV Vaccines (2 of 3 - Adult catch-up series) 12/10/2024 11/12/2024 COVID-19 Vaccine ( - season) 2025 Influenza Vaccine (#1) 2025 DTaP,Tdap,and Td Vaccines (2 - Td or Tdap) 10/16/2028 10/16/2018 Cholesterol Screening (Lipid Panel) 11/15/2029 11/15/2024, 11/15/2024, 05/10/2023, Additional history exists RSV Immunization Adult Patients (1 - 1-dose 75+ series) 2062 HIV [...] RESULTING AGENCY - 10/08/2020 11:46 AM EST [id number] THINPREP PAP, IMAGED: NEGATIVE FOR SQUAMOUS INTRAEPITHELIAL [...] Maintenance Insurance MEDICAID - [place] Care Teams Wharf Tally Clerk Relationship Specialty Start Date End Date Bi Lewis PA PCP - General Internal Medicine 06/26/18
--- OUTSIDE RECORDS SUMMARY | 2025-07-02 20:36 | XMS_ITS | Data Portability ---
Author Organization [place] [facility], Allergy Address [address] [address] Care Team Providers Care Planer Hand Name Role Phone JACOB NEVAREZ Primary Care Provider Assessment Encounter Date Assessment Date Assessment LastModified by Organization Details LastModified Time 03/20/2025 03/20/2025 The patient demonstrates improvement in dry mouth symptoms with the use of electrolytes and prescribed mouthwash. The bumps on the tongue are identified as circumvallate papillae, which are normal anatomical structures and not a cause for concern. The mass in the cheek is determined to be the opening of the saliva duct, with no irregularities noted during the examination. The patient reports difficulty swallowing, scratchiness in the throat, and occasional voice loss. These symptoms may warrant further evaluation, particularly given her history of left vocal cord nodule surgery on 12/20/2020. An appointment will be scheduled for further assessment of her throat and voice concerns. The patient is advised to monitor the cheek mass for changes and report any significant growth or discomfort. No new medications are prescribed at this time. [email or web address] Not available 03/20/2025 11:25:22 Plan of Treatment Reminders Order Date Submit Date Provider Last Modified By Organization Details Last Modified Time Details Appointments Establish ed 15 2024 01:00P Jacinto ADAMS MD Not available Not available Not available Lab None recorded. Referral None recorded. Procedures None recorded. Surgeries None recorded. Imaging None recorded. Medication Orders None recorded. Patient TargetsNo targets recorded. Patient Instructions Encounter Date Encounter Id Patient Instructions Last Modified By Organization Details Last Modified Time 03/20/2025 [id number] - Monitor the cheek mass for changes and report any significant growth or discomfort. - Schedule an appointment for further evaluation of throat and voice concerns. [email or web address] Not available 03/20/2025 11:25:22 Please note: Parts of this encounter note have been generated by AI based on audio conversation. Patient consent was required prior to utilizing this technology. Content review was required prior to finalizing the note. [email or web address] Not available 03/20/2025 11:25:22 Reason for Referral None Reported. 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 5 11:17:16 Mass of tongue 909955828 Active 2024 GUERO ADAMS MD [address] [place] [address], [place], [phone] , [facility] 5 11:17:24 Problem Notes None recorded. Medical Equipment None Reported. Medications Name Sig Start Date Stop Date Status Note LastModified by Organization Details LastModified Time multivita min tablet active Medicati on ID: [id number] B rand Name: multivit zepeda Sen d Method: E-Prescr ibed Sub s Allowed: subs OK Speci al Instruct ion: TAKE 1 TABLET BY MOUTH DAILY Me dication GenericN kristy: multivit zepeda Not Available Not Available Not Available nifedipin e ER 30 mg tablet,ex tended release 24 hr TAKE ONE TABLET BY MOUTH ONCE DAILY active Not Available Not Available No t Available amoxicill in 500 mg capsule 08/08 /2025 completed Medicati on ID: [id number] B rand Name: amoxicil edilma Send Method: E-Prescr ibed Sub s Allowed: subs OK Speci al Instruct ion: REGINO 2 CAPSULAS POR LA BOCA DOS VECES AL ALEXYS POR 10 ARGUELLO Med icationG enericNa me: amoxicil edilma Not Available Not Available Not Available medroxypr ogesteron e 10 mg tablet TAKE ONE TABLET BY MOUTH TWICE DAILY active Not Available Not Available No t Available azelastin e 0.05 % eye drops instill ONE DROP into BOTH eyes TWICE DAILY active Not Available Not Available No t Available nystatin 100,000 unit/mL oral suspensio n TAKE 5ML BY MOUTH FOUR TIMES DAILY SWISH AND SWALLOW active Not Available Not Available No t Available prednison e 10 mg tablet 03/20 completed Medicati on ID: [id number] B rand Name: predniso ne Send Method: E-Prescr ibed Sub s Allowed: subs OK Medic ationGen ericName : predniso ne Not Available Not Available Not Available ketoconaz ole 2 % shampoo active Medicati on ID: [id number] B rand Name: ketocona zole Sen d Method: E-Prescr ibed Sub s Allowed: subs OK Speci al Instruct ion: APPLY TOPICALL Y EVERY DAY NEEDED FOR ITCHING Medicati onGeneri cName: ketocona zole Not Available Not Available Not Available fluconazo le 150 mg tablet 150mg BY MOUTH DAILY FOR ONE DOSE; administ er ON DAY ONE of therapy active Not Available Not Available No t Available benzonata te 200 mg capsule TAKE ONE CAPSULE BY MOUTH THREE TIMES DAILY NEEDED cough active Not Available Not Available No t Available levetirac etam 500 mg tablet active Medicati on ID: [id number] B rand Name: levetira cetam Se nd Method: E-Prescr ibed Sub s Allowed: subs OK Speci al Instruct ion: TAKE 2 TABLETS BY MOUTH TWICE DAILY Me dication GenericN kristy: levetira cetam Not Available Not Available Not Available clarithro mycin 500 mg tablet 03/20 completed Medicati on ID: [id number] B rand Name: clarithr omycin S end Method: E-Prescr ibed Sub s Allowed: subs OK Speci al Instruct ion: REGINO 1 TABLETA POR LA BOCA DOS VECES AL ALEXYS POR 10 ARGUELLO Med icationG enericNa me: clarithr omycin Not Available Not Available Not Available sumatript an 100 mg tablet TAKE ONE-HALF TO 1 TABLET BY MOUTH AT ONSET OF HEADACHE . MAY REPEAT IN 2 HOURS IF NEEDED. MAX 2/DAY OR 4 PER WEEK. MAY TAKE WITH ACETAMIN OPHEN active Not Available Not Available No t Available ondansetr on HCl 8 mg tablet TAKE ONE TABLET BY MOUTH every EIGHT HOURS NEEDED FOR nausea active Not Available Not Available No t Available meloxicam 15 mg tablet TAKE 1 TABLET BY MOUTH EVERYDAY FOR 30 DAYS active Not Available Not Available No t Available sucralfat e 1 gram tablet active Medicati on ID: [id number] B rand Name: sucralfa te Send Method: E-Prescr ibed Sub s Allowed: subs OK Speci al Instruct ion: REGINO 1 TABLETA POR LA BOCA DOS VECES AL ALEXYS Medi cationGe nericNam e: sucralfa te Not Available Not Available Not Available ondansetr on HCl 4 mg tablet active Medicati on ID: [id number] B rand Name: ondanset mickie HCl Send Method: E-Prescr ibed Sub s Allowed: subs OK Speci al Instruct ion: REGINO 1 TABLETA POR LA BOCA YOSVANY VECES AL ALEXYS CUANDO SEA NECESARI O PARA NAUSEA M edicatio nGeneric Name: ondanset mickie HCl Not Available Not Available Not Available prednison e 20 mg tablet TAKE THREE TABLETS BY MOUTH ONCE DAILY FOR THREE DAYS, THEN TWO TABLETS FOR THREE DAYS; THEN ONE TABLET ONCE DAILY FOR THREE DAYS active Not Available Not Available No t Available clonazepa m 0.5 mg tablet TAKE ONE TABLET BY MOUTH EVERY MORNING active Not Available Not Available No t Available rizatript an 10 mg tablet TAKE 5-10mg BY MOUTH EVERY 2 HOURS NEEDED FOR MIGRAINE FOR HEADACHE FOR 21 DAYS max TWO TABLET PER DAY OR FOUR TABLET PER WEEK active Not Available Not Available No t Available phentermi ne 15 mg capsule TAKE ONE CAPSULE BY MOUTH EVERY MORNING 03/20 completed Not Available Not Available Not Available oxcarbaze pine 300 mg tablet TAKE TWO TABLETS BY MOUTH TWICE DAILY active Not Available Not Available No t Available melatonin 3 mg tablet 03/20 completed Medicati on ID: [id number] B rand Name: melatoni n Send Method: E-Prescr ibed Sub s Allowed: subs OK Speci al Instruct ion: TAKE 1 TABLET BY MOUTH EVERY DAY AT BEDTIME NEEDED FOR INSOMNIA Medicat ionGener icName: melatoni n Not Available Not Available Not Available tretinoin 0.05 % topical cream active Medicati on ID: [id number] B rand Name: tretinoi n Send Method: E-Prescr ibed Sub s Allowed: subs OK Speci al Instruct ion: APPLY TOPICALL Y TO THE AFFECTED AREA EVERY NIGHT AT BEDTIME Medicati onGeneri cName: tretinoi n Not Available Not Available Not Available amitripty line 50 mg tablet TAKE ONE TABLET BY MOUTH AT BEDTIME active Not Available Not Available No t Available acetamino phen 500 mg tablet TAKE ONE TABLET BY MOUTH EVERY SIX HOURS NEEDED FOR PAIN active Not Available Not Available No t Available phentermi ne 30 mg capsule TAKE ONE CAPSULE BY MOUTH EVERY MORNING. maximum daily DOSE 30 MG active Not Available Not Available No t Available amoxicill in 500 mg tablet TAKE 1 TABLET BY MOUTH THREE TIMES DAILY UNTIL GONE 03/19 completed Not Available Not Available Not Available ondansetr on 8 mg disintegr ating tablet 03/20 completed Medicati on ID: [id number] B rand Name: samantha corado Send Method: E-Prescr ibed Sub s Allowed: subs OK Speci al Instruct ion: DISSOLVE 1 TABLET ON THE TONGUE EVERY 8 HOURS NEEDED FOR NAUSEA M edicatio nGeneric Name: samantha corado Not Available Not Available Not Available pantopraz ole 20 mg tablet,de layed release 03/20 completed Medicati on ID: [id number] B rand Name: pantopra zole Sen d Method: E-Prescr ibed Sub s Allowed: subs OK Speci al Instruct ion: TAKE 1 TABLET BY MOUTH TWICE DAILY BEFORE MEALS Me dication GenericN kristy: pantopra zole Not Available Not Available Not Available dronabino l 2.5 mg capsule 03/20 completed Medicati on ID: [id number] B rand Name: dronabin ol Send Method: E-Prescr ibed Sub s Allowed: subs OK Speci al Instruct ion: TAKE 1 CAPSULE BY MOUTH TWICE DAILY BEFORE A MEAL Med icationG enericNa me: dronabin ol Not Available Not Available Not Available propranol ol 10 mg tablet TAKE ONE TABLET BY MOUTH TWICE DAILY active Not Available Not Available No t Available famotidin e 20 mg tablet regino ONE TABLET por la boca dos veces al alexys active Not Available Not Available No t Available amitripty line 25 mg tablet 03/20 completed Medicati on ID: [id number] B rand Name: amitript yline Se nd Method: E-Prescr ibed Sub s Allowed: subs OK Speci al Instruct ion: TAKE 2 TABLETS BY MOUTH AT BEDTIME Medicati onGeneri cName: amitript yline Not Available Not Available Not Available lorazepam 0.5 mg tablet take ONE-HALF TO ONE tablet BY MOUTH EVERY DAY NEEDED FOR ANXIETY / convulsi on active Not Available Not Available No t Available amitripty line 10 mg tablet TAKE 1 OR 2 TABLETS BY MOUTH NIGHTLY AT BEDTIME active Not Available Not Available No t Available meclizine 25 mg tablet TAKE ONE TABLET BY MOUTH THREE TIMES DAILY NEEDED fo dizzness active Not Available Not Available No t Available prochlorp erazine 25 mg rectal supposito ry 03/20 completed Medicati on ID: [id number] B rand Name: prochlor perazine Send Method: E-Prescr ibed Sub s Allowed: subs OK Speci al Instruct ion: UNWRAP AND INSERT 1 SUPPOSIT ORY RECTALLY DIRECTED TWICE DAILY NEEDED FOR NAUSEA AND VOMITING Medicat ionGener icName: prochlor perazine Not Available Not Available Not Available benzonata te 100 mg capsule 03/20 completed Medicati on ID: [id number] B rand Name: benzonat ate Send Method: E-Prescr ibed Sub s Allowed: subs OK Speci al Instruct ion: TAKE 1 CAPSULE BY MOUTH THREE TIMES DAILY NEEDED FOR COUGH Me dication GenericN kristy: benzonat ate Not Available Not Available Not Available hydrocort isone 1 % topical cream active Medicati on ID: [id number] B rand Name: hydrocor tisone S end Method: E-Prescr ibed Sub s Allowed: subs OK Speci al Instruct ion: APPLY TOPICALL Y TO THE AFFECTED AREA TWICE DAILY Me dication GenericN kristy: hydrocor tisone Not Available Not Available Not Available pantopraz ole 40 mg tablet,de layed release 03/20 completed Medicati on ID: [id number] B rand Name: pantopra zole Sen d Method: E-Prescr ibed Sub s Allowed: subs OK Speci al Instruct ion: TAKE 1 TABLET BY MOUTH EVERY DAY Medi cationGe nericNam e: pantopra zole Not Available Not Available Not Available Banophen 25 mg tablet 03/20 completed Medicati on ID: [id number] B rand Name: Banophen Send Method: E-Prescr ibed Sub s Allowed: subs OK Speci al Instruct ion: TAKE 1 TABLET BY MOUTH THREE TIMES DAILY NEEDED FOR ALLERGY SYMPTOMS Medicat ionGener icName: Banophen Not Available Not Available Not Available benztropi ne 1 mg tablet TAKE ONE TABLET BY MOUTH TWICE DAILY active Not Available Not Available No t Available omeprazol e 20 mg capsule,d elayed release active Medicati on ID: [id number] B rand Name: omeprazo le Send Method: E-Prescr ibed Sub s Allowed: subs OK Speci al Instruct ion: TAKE 1 CAPSULE BY MOUTH TWICE DAILY Me dication GenericN kristy: omeprazo le Not Available Not Available Not Available zolpidem 5 mg tablet 03/20 completed Medicati on ID: [id number] B rand Name: zolpidem Send Method: E-Prescr ibed Sub s Allowed: subs OK Speci al Instruct ion: TAKE 1 TABLET BY MOUTH EVERY NIGHT AT BEDTIME NEEDED FOR SLEEP Me dication GenericN kristy: zolpidem Not Available Not Available Not Available norethind segundo acetate 5 mg tablet TAKE ONE TABLET BY MOUTH ONCE DAILY active Not Available Not Available No t Available mirtazapi ne 15 mg tablet active Medicati on ID: [id number] B rand Name: mirtazap ine Send Method: E-Prescr ibed Sub s Allowed: subs OK Speci al Instruct ion: TAKE 1 TABLET BY MOUTH EVERY NIGHT AT BEDTIME Medicati onGeneri cName: mirtazap ine Not Available Not Available Not Available gabapenti n 100 mg capsule TAKE 1-3 CAPSULE BY MOUTH NIGHTLY AT BEDTIME active Not Available Not Available No t Available lorazepam 1 mg tablet active Medicati on ID: [id number] B rand Name: lorazepa m Send Method: E-Prescr ibed Sub s Allowed: subs OK Speci al Instruct ion: TAKE 1 TABLET BY MOUTH TWICE DAILY NEEDED FOR ANXIETY Medicati onGeneri cName: lorazepa m Not Available Not Available Not Available ibuprofen 600 mg tablet TAKE 1 TABLET BY MOUTH THREE TIMES DAILY WITH FOOD NEEDED active Not Available Not Available No t Available Prometheg an 50 mg rectal supposito ry 03/20 completed Medicati on ID: [id number] B rand Name: Lili sanchez Send Method: E-Prescr ibed Sub s Allowed: subs OK Speci al Instruct ion: UNWRAP AND INSERT 1 SUPPOSIT ORY RECTALLY EVERY 6 HOURS NEEDED FOR NAUSEA M edicatio nGeneric Name: Promnabeele laura Not Available Not Available Not Available ferrous sulfate 325 mg (65 mg iron) tablet,de layed release active Medicati on ID: [id number] B rand Name: ferrous sulfate Send Method: E-Prescr ibed Sub s Allowed: subs OK Speci al Instruct ion: REGINO 1 TABLETA POR LA BOCA CADA LUNES, MIERCOLE S, Y VIERNES Medicati onGeneri cName: ferrous sulfate Not Available Not Available Not Available fluoxetin e 20 mg capsule TAKE ONE CAPSULE BY MOUTH ONCE DAILY active Not Available Not Available No t Available fluticaso ne propionat e 50 mcg/actua tion nasal spray,ian pension instill ONE SPRAY IN EACH NOSTRIL ONCE DAILY AND shake. active Not Available Not Available No t Available phentermi ne 37.5 mg capsule TAKE ONE CAPSULE BY MOUTH EVERY MORNING active Not Available Not Available No t Available loratadin e 10 mg tablet TAKE ONE TABLET BY MOUTH DAILY NEEDED FOR allergie s active Not Available Not Available No t Available Ventolin HFA 90 mcg/actua tion aerosol inhaler INHALE TWO puffs into THE into the lungs FOUR TIMES DAILY NEEDED FOR SHORTNES S OF BREATH OR wheezing active Not Available Not Available No t Available simethico ne 80 mg chewable tablet 03/20 completed Medicati on ID: [id number] B rand Name: simethic one Send Method: E-Prescr ibed Sub s Allowed: subs OK Speci al Instruct ion: MASTICAR 1 TABLETA POR LA BOCA YOSVANY VECES AL ALEXYS CUANDO SEA NECESARI O Medica tionGene ricName: simethic one Not Available Not Available Not Available hydroxyzi ne pamoate 25 mg capsule active Medicati on ID: [id number] B rand Name: hydroxyz ine pamoate Send Method: E-Prescr ibed Sub s Allowed: subs OK Speci al Instruct ion: TAKE 1 CAPSULE BY MOUTH EVERY NIGHT AT BEDTIME NEEDED FOR ANXIETY OR SLEEP Me dication GenericN kristy: hydroxyz ine pamoate Not Available Not Available Not Available Prometheg an 12.5 mg rectal supposito ry 03/20 completed Medicati on ID: [id number] B rand Name: Lili sanchez Send Method: E-Prescr ibed Sub s Allowed: subs OK Speci al Instruct ion: UNWRAP AND INSERT 1 SUPPOSIT ORY RECTALLY EVERY 6 HOURS NEEDED FOR NAUSEA M edalma rosatio nGeneric Name: Promethe laura Not Available Not Available Not Available Pylera 140 mg-125 mg-125 mg capsule 03/20 completed Medicati on ID: [id number] B rand Name: Pylera S end Method: E-Prescr ibed Sub s Allowed: subs OK Speci al Instruct ion: TAKE 3 CAPSULES BY MOUTH FOUR TIMES DAILY Me dication GenericN kristy: Pylera Not Available Not Available Not Available cholecalc iferol (vitamin D3) 1,250 mcg (50,000 unit) capsule TAKE ONE CAPSULE BY MOUTH EVERY WEEK FOR 12 WEEKS active Not Available Not Available No t Available diclofena c 1 % topical gel APPLY 2g topicall y TWICE DAILY active Not Available Not Available No t Available Banophen 50 mg capsule TAKE ONE CAPSULE BY MOUTH NIGHTLY AT BEDTIME NEEDED allergie s OR SLEEP active Not Available Not Available No t Available multivita min-tax examiner als-iron fumarate 7.5 mg-folic acid 400 mcg tablet active Medicati on ID: [id number] B rand Name: multivit -min-iro n fum-foli c ac Send Method: E-Prescr ibed Sub s Allowed: subs OK Speci al Instruct ion: REGINO 1 TABLETA POR LA BOCA CADA ALEXYS Medi cationGe nericNam e: multivit -min-iro n fum-foli c ac Not Available Not Available Not Available Emgality Pen 120 mg/mL subcutane ous pen injector INJECT 120mg SUBCUTAN EOUSLY ONCE FOR 30 DAYS active Not Available Not Available No t Available Daily-Vit e (with folic acid) 400 mcg tablet active Medicati on ID: [id number] B rand Name: Daily-Vi te (with folic acid) Se nd Method: E-Prescr ibed Sub s Allowed: subs OK Speci al Instruct ion: TAKE 1 TABLET BY MOUTH DAILY Me dication GenericN kristy: Daily-Vi te (with folic acid) Not Available Not Available Not Available Vitals Date Recorded Body height Body mass index (BMI) Body weight Provider Name and Address Organization Details Last Updated DateTime 03/20/2025 162.56 cm 27.8 kg/m2 12551.96 g NIDHI IVORY [place] - [facility] 03/20/2025 11:02:23 Social History None recorded. Functional Status None recorded. Mental Status None recorded. Family History Nothing Reported. Medical History No medical history recorded. Gynecological HistoryNo gynecological history recorded. Obstetrics History GPAL:G 0 P 0 0 0 0 Past Encounters Encounter ID Performer Location Encounter Start Date Encounter Closed Date Diagnosis/Indication Diagnosis SNOMED-CT Code Diagnosis ICD10 Code Diagnosis IMO Codes Diagnosis Note [id number] GUERO ADAMS MD [facility] [address] [address] 03/20/2025 10:39:18 03/20/2025 11:27:09 Xerostomia 14248016 R68.2 8024 Mass of tongue 314879254 K14.8 20935 Health Concerns Section Related Observation LastModified by Organization Detai ls LastModified Time None Recorded Concern Status LastModified by Organization Details LastModified Time None Recorded Advance Directives Directive None Recorded Payers Insurance Date Sequence Insurance Name Policy Number Policy Oliver Covered Member ID Oliver Member ID Guarantor Name 03/19/2025 1 [facility] Laura Thakkar [id number] Laura Thakkar 06/30/2025 1 [place] [facility] Laura Thakkar [id number] Laura Thakkar Notes Date Note Type Note Provider Name and Address Organization Details Recorded Time 03/20/2025 text/html ipad - tamazight dry mouth Laura Jacinto Thakkar is a 39-year-old female who presents for evaluation of dry mouth and associated symptoms. She reports experiencing dry mouth for approximately two and a half months, which initially led to swelling and bumps on her tongue after using a prescribed mouthwash. She has since found relief with electrolytes and a different mouthwash prescribed by her doctor. She was evaluated by an oral surgeon who ruled out oral causes and suggested investigating thyroid-related issues. She also reports difficulty swallowing, scratchiness in her throat, occasional voice loss, and a mass in her cheek. She recalls undergoing surgery for a left vocal cord nodule on 12/20/2020. Her current medications include lorazepam and clonazepam, which she takes only as needed for seizures. She denies regular use of other medications that may contribute to dry mouth. GUERO ADAMS MD [address] [place] [address], [place], [address], [facility] - [facility] 03/20/2025 11:26:32 OBGyn Episode No OBEpisode recorded.
--- OUTSIDE RECORDS SUMMARY | 2025-07-02 20:36 | XMS_ITS | Encounter Summary ---
Author Organization [facility] Address [address] [place] [phone] Phone Care Team Providers Care [employer] Name Role Phone Unknown, Unknown MD Primary Care Provider Ta barnes Reason for Referral * Consultation (Elective) - Closed Specialty Diagnoses / Procedures Referred By Valentina vizcarra Referred To Contact Neurology [facility] [place] [facility], Provider Not In, [facility] [id number] [place] [phone] Phone: tel: Referral ID Status Reason Start Date Expiration Date Visits Re quested Visits Authorized [id number] Closed 06/30/2022 06/30/2023 1 1 Encounter Details Date Type Department Care Team (Late st Contact Info) Description 06/30/2022 Transcribe Orders [facility] Referral Management [address] [place] [address] System, Provider Not In, [facility] [address] [address] [place] (Primary Dx) Social History Tobacco Use Types Packs/Day Years Used Date Smoking Tobacco: Never Assessed Comments Unknown Sex and Gender Information Value Date Recorded Sex Assigned at Female 03/19/2023 8:44 AM EDT Legal Sex Female 9:01 AM EDT Gender Identity Female 03/19/2023 8:44 AM EDT Sexual Orientation Straight 03/19/2023 8: 44 AM EDT documented as of this encounter Plan of Treatment Upcoming Encounters Date Type Department Care Team (Late st Contact Info) Description 07/29/2025 8:00 AM EST Office Visit [facility] Department of [place]rology [address], [address] [place] [address] System, Provider Not In, [facility] [address] [address] Scheduled Referrals Name Type Priority Associated Diagnoses Order Schedule Ambulatory referral to [facility] Neurology Outpatient Referral Routine Jerking Ordered: 06/30/2022 documented as of this encounter Visit Diagnoses Diagnosis Jerking- Primary Abnormal involuntary movements documented in this encounter Care Teams [employer] Relationship Specialty Start Date End Date Unknown, Unknown, MD PCP - General 02/16/23 documented as of this encounter Additional Source Comments The information contained in this document represents components of the legal health record. It is not the complete legal health record.[facility]
== END 2025-07-02 16:18 | disposition home or self-care (01) ==
LOC: HO.HSMS 15:27
PROVIDERS: PCP Surgery; Visit Provider Psychiatry & Neurology Neurology
DX: R55 Syncope and collapse (principal); R25.9 Unspecified abnormal involuntary movements; G43.009 Migraine without aura, not intractable, without status migrainosus; R56.9 Unspecified convulsions
CPT/HCPCS: 99213

== ENCOUNTER → 2025-07-02 15:27 | Outpatient (BNVA) | payer MEDICAID, SELFPAY | PROVIDERS: PCP Surgery; Visit Provider Psychiatry & Neurology Neurology | DX: R55 Syncope and collapse (principal); R25.9 Unspecified abnormal involuntary movements; G43.009 Migraine without aura, not intractable, without status migrainosus; R56.9 Unspecified convulsions | CPT/HCPCS: 99212 ==